=== PATIENT | male | born 1960 | race Caucasian/White ===

== ENCOUNTER 2017-12-23 13:48 | Inpatient (IN) | payer OTHER ==
--- OUTSIDE RECORDS SUMMARY | 2017-12-23 13:52 | XMS REPORT | Clinical Summary ---
:1960 Author Organization [facility] Address [address] [place] [address] Care Team Providers Name Role Phone Unavailable Primary Care Provider Unavailable Allergies Active Allergy Reactions Severity Noted Date Comments Acetaminophen Hives High 02/18/2009 Aspirin Rash, Nausea and Vomiting Low 02/18/2009 States vomiting when taken. Ibuprofen Hives 08/02/2010 Nitroglycerin Nausea and Vomiting Low 02/18/2009 States he "feels like passing out" when taking the patch or pill versions. Current Medications Prescription Sig. Disp. Refills Start Date End Date Status ferrous sulfate 325 Take 1 tablet 30 tablet 3 11/12/2014 Active mg (65 mg iron) by mouth daily tabletIndications: (with Suicidal ideation, breakfast). Chest pain, CAD (coronary artery disease), Seizure disorder, Mild mental retardation, Mood disorder, Personality disorder, Desensitization to allergens, Cocaine dependence, in remission, GERD (gastroesophageal reflux disease), HLD (hyperlipidemia), Stented coronary artery, Radiating chest pain, TBI (traumatic brain injury), Elevated d-dimer atorvastatin Take 1 tablet 90 tablet 1 02/03/2016 Active (LIPITOR) 20 mg by mouth at tabletIndications: bedtime Other chest pain nightly. clopidogrel (PLAVIX) Take 1 tablet 90 tablet 1 02/03/2016 Active 75 mg by mouth tabletIndications: daily. Coronary artery disease involving [place] coronary artery with other forms of angina pectoris polyethylene glycol Add lukewarm 4000 mL 0 11/25/2017 Active (GOLYTELY) drinking water [id number] -5.86 to the fill gram oral leonides (4 solutionIndications: liters) and Abnormal CT scan, shake. Drink sigmoid colon as directed by your doctor.. aspirin (ASPIRIN) 81 Chew and 02/27/2014 Discontinued mg chewable tablet swallow 1 8 tablet by mouth daily. traMADol (ULTRAM) 50 Take 1 tablet 21 tablet 0 06/14/2015 Discontinued mg tabletIndications: by mouth every 8 Acute right ankle 6 hours as pain, Closed needed for nondisplaced fracture Pain. of posterior process of right talus, initial encounter Active Problems Problem Noted Date Knee pain 12/18/[address] scan, sigmoid colon 11/25/2017 Fall 11/04/2016 Left wrist pain 01/26/2016 Right ankle pain 06/14/2015 Hypertension 06/05/2015 Syncope 12/06/2014 UTI (LOWER URINARY TRACT INFECTION) 11/30/2014 Hypotension 11/30/2014 Elevated d-dimer 09/16/2014 Mood disorder 04/05/2014 Mild mental retardation 08/23/2012 Radiating chest pain 04/20/2011 Stented coronary artery 04/19/2011 Overview: [facility] 07/12/2010 LAD 80% occlusion. Pt states he also got stented at [place], though reports not available Gastroesophageal reflux disease 03/26/2011 HLD (hyperlipidemia) 03/26/2011 Seizure disorder 02/24/2011 Coronary artery disease involving [place] coronary artery of [place] heart 12/24 Personality disorder 09/23/2010 Alcohol dependence, in remission 09/23/2010 Cocaine dependence, in remission 09/23/2010 Desensitized to Aspirin 06/201009/10/2010 Schizophrenia 07/17/2010 Chest pain 07/15/2010 Overview: . Multiple admissions for chest pain . Normal myocardial perfusion scan on 09/11/2010 . A stent can be seen radiologically in the [facility] TBI (traumatic brain injury) Chest pain, non-cardiac Non-cardiac chest pain Precordial pain Suicidal ideation Unspecified mood (affective) disorder Elevated troponin Fall down stairs HX: anticoagulation Loss of consciousness Suicidal behavior with attempted self-injury Arm laceration Intermittent explosive disorder in adult Familial hypercholesterolemia Right leg pain Right leg swelling Vomiting Hematemesis with nausea Encounters Date Type Specialty Care Team Description 12/19/2017 Ancillary Orders Emergency Allencherril, Chest pain, Medicine Justin Tom, unspecified type ResidentMD 12/18/2017 Emergency Emergency Linnea Santos Chest pain, unspecified type (Primary Dx); Adelaide Lozano MD Acute pain of right knee Dada David MD 11/24/2017 - Emergency Emergency Randolph, Jessica, Chest pain, unspecified type (Primary Dx); 11/25/2017 Medicine Vomiting, intractability of vomiting not specified, presence of nausea not specified, unspecified vomiting type; Clemente Mulligan MD Hematemesis with nausea; Abnormal CT scan, sigmoid colon 11/11/2017 Emergency Emergency Medicine 11/11/2017 Emergency Emergency Medicine 11/06/2017 - Emergency Emergency Eber Dupree MD Right leg pain (Primary Dx); 11/07/2017 Medicine Radha Mathis, Right leg swelling 05/11/2017 - Emergency Emergency Fall, initial 05/12/2017 Medicine encounter (Primary Dx) 05/08/2017 Emergency Emergency Medicine 01/17/2017 - Emergency Justus Aleman, Chest pain, unspecified type ( Primary Dx); 01/18/2017 Schizophrenia, unspecified type Hospitalist Ham Busch MD 12/29/2016 [facility] ( Primary Dx); Adelaide Ma MD Seizure disorder 12/23/2016 Emergency Emergency Alice Soares MD Seizure disorder (Primary Dx); Medicine Neck pain; 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 Immunizations Name Dates Previously Given Next Due Influenza Vaccine 06/23/2014 (Deferred: Patient Refused), 03/25/2013, 02/24/2011 PPV 23 Pneumococcal Polysaccaride 04/09/2009 Tdap Tetanus, diphtheria, acellular 02/14/2013, 03/22/2011, 11/15/2010 pertussis Vaccine Family History Medical History Relation Name Comments Heart Father Relation Name Status Comments Father Social History Tobacco Use Types Packs/Day Years Used Date Current Every Day Smoker Cigarettes 1.5 Smokeless Tobacco: Current User Alcohol Use Drinks/Week oz/Week Comments No Sex Assigned at Date Recorded Not on file Last Filed Vital Signs Vital Sign Reading Time Taken Blood Pressure 113/62 12/18/2017 12:55 PM CDT Pulse 60 12/18/2017 12:55 PM CDT Temperature 36.7 C (98 F) 12/18/2017 11:11 AM CDT Respiratory Rate 13 12/18/2017 12:55 PM CDT Oxygen Saturation 99% 12/18/2017 12:55 PM CDT Inhaled Oxygen Concentration - - Weight 99.1 kg (218 lb 6.4 oz) 11/11/2017 2:00 PM CDT Height 165.1 cm (5' 5") 01/18/2017 12:36 AM CDT Body Mass Index 36.34 11/11/2017 2:00 PM CDT Plan of Treatment Health Maintenance Due Date Last Done Comments Colorectal Cancer Scrn Annual 2008 (FIT/FOBT) Age 50 to 75 CORONARY ARTERY DISEASE AGE 18 02/02/2017 02/03/2016, 03/25/2013, AND UP 02/24/2011, Additional history exists IMM Influenza Seasonal Feb to 02/24/2018July (>/=19 yrs) Results MYOCARDIAL PERFUSION SPECT REST/STRES SINGLE (12/19/2017 1:45 PM) Component Value Ref Range MYOCARDIAL PERFUSION SPECT REST/STRES SINGLE Myocardial Perfusion Report KIRA FARNSWORTH Age:57Gender:M :1960 Exam Date: 12/18/2017 14:21 Exam Location:[facility] Ordering Phys: DADA DAVID Referring Phys: Reading Phys:Jose Francisco MD Fellow Phys: Jake Li MD Fellow Phys: Tristin Fagan MD Resident: Technologist:Courtney Miranda Reason For Exam: Indications:Chest pain, unspecified ICD-9 Codes:R07.9 Exam Type: Myocardial Perfusion Report Procedure CPT: 46500 Additional CPT: BP:/HR: Risk Factors: Previous Cardiac Procedures: Cardiac History: HTN, CVA Pertinent Meds: Meds past 24 hrs: Pretest Chest Pain: CARDIOLOGY STRESS TEST Pharmacologi Cardiology exercise stress test results pending under separate report. Please look in [facility] under the Procedures Tab in Chart Review. IMAGE PROTOCOLStress Only Radiopharmaceutical Dose (mCi)Duration (min) Img Date Img Time Rest: REST DATE Stress: [id number] STRESS DATE Tetrofosmin Administration Site:Left antecubital fossa SPECT RESULTS Technical Quality:Adequate Raw Data Analysis: Stress Perfusion Rest Perfusion Summed Stress Score:3 Summed Rest Score: 0 Summed Difference Score: 3 0 - Normal 2 - Abnormal Uptake 4 - Absent 1 - Mildly Reduced Uptake 3 - Severely Reduced Tracer Uptake X - Not Interpretable RV: Medium sized decreased uptake of mild severity in the inferior (RCA) segments Homogenous normal tracer uptake of the myocardium during rest and stress in all other segments FUNCTION (calculated via Gated SPECT) Resting LV EF:% EDV:119ml(70-100 ml) Post Stress LV EF: 61% TID: ESV:47 ml (30-50 ml) Technical Quality: LV Size & Function: Normal left ventricular size and ejection fraction. LV Regional Function: Normal left ventricular wall motion and thickening. Other Findings: Variable Not Implemented IMPRESSIONS 1. Myocardial perfusion study is inconclusive 2. There is a medium size mild severity region of decreased perfusion in inferior wall during stress. Patient declined rest images on same day and was discharged prior to obtaining rest images next day. Suspect defect is soft tissue attenuation, however cannot exclude scar or ischemia in absence of rest images. 3. Overall left ventricular function is normal with normal wall motion. 4. Normal gated SPECT left ventricular ejection fraction of 61%. 5. Normal left ventricular size. 6. No previous study for comparison. 7. Please see ECG report in Epic for details of tracing interpretation. [place] Control: Do not remove! 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 Interpretive Statements Indication: chest pain Findings: The patient was administered regadenoson 0.4Mg IV. Aminophylline was given if needed. The resting heart rate of 50 bpm sly to a maximal heart rate of 94 bpm. The resting blood pressure of 118/70 mmHg ,fell to a minimum of 94/64 mmHg. Conclusions: 1. ECG portion of nuclear stress test is non-diagnostic for ischemia 2. Testing terminated due to end of test. Non-limiting chest pain/pressure noted. 3. Baseline EKG:NSR without ST changes.Stress EKG: NSR without ST changes. 4. Noted arrhythmias: none 5. Please see results from nuclear stress test from the same date for perfusion data. Electronically Signed On 12-20-17 14:46:15 CDT by Jose Francisco M.D. Specimen Performing Laboratory SMS TROPONIN I (12/18/2017 8:46 AM)Only the most recent of4 resultswithin the time period is included. Component Value Ref Range Troponin I <0.03 <0.04 ng/mL Specimen Performing Laboratory Blood MISYS XRAY KNEE 3 VIEWS (TRAUMA - AP/LAT/OBL) (12/18/2017 6:36 AM)Only the most recent of2 resultswithin the time period is included. Specimen Performing Laboratory SMS Impressions IMPRESSION: No acute radiographic abnormality of the right knee A "PRELIMINARY" report was made available via Cubie at the time of dictation by the resident indicated below. If the report is described as "FINALIZED" it indicates the attending/staff radiologist below has reviewed the images and agrees with the resident's interpretation. Dictated By: Tamika Eckert MD, 12/18/2017 6:37 AM I have reviewed the study and agree with the findings in this report. Signed By: Kari Yu MD, 12/18/2017 6:50 AM Narrative EXAMINATION: XRAY KNEE - 4 VIEW(S) SIDE: Right INDICATION: pain, fall COMPARISON: Right knee radiographs 11/06/2017 FINDINGS: BONE: No acute fracture. Possible chronic healed fracture deformity of the proximal fibula. JOINTS: No malalignment. SOFT TISSUES: Normal. Procedure Note Interface, Rad/Mammog In - 12/18/2017 6:55 AM CDT EXAMINATION: XRAY KNEE - 4 VIEW(S) SIDE: Right INDICATION: pain, fall COMPARISON: Right knee radiographs 11/06/2017 FINDINGS: BONE: No acute fracture. Possible chronic healed fracture deformity of the proximal fibula. JOINTS: No malalignment. SOFT TISSUES: Normal. IMPRESSION IMPRESSION: No acute radiographic abnormality of the right knee A "PRELIMINARY" report was made available via Cubie at the time of dictation by the resident indicated below. If the report is described as "FINALIZED" it indicates the attending/staff radiologist below has reviewed the images and agrees with the resident's interpretation. Dictated By: Tamika Eckert MD, 12/18/2017 6:37 AM I have reviewed the study and agree with the findings in this report. Signed By: Kari Yu MD, 12/18/2017 6:50 AM 12 LEAD EKG (12/18/2017 5:58 AM)Only the most recent of8 resultswithin the time period is included. Component Value Ref Range 12 LEAD EKG FOR [facility] Test Date:2017-12-18 Pat Name: KIRA Jaquezpartment: : Gender: M Double End Tenoner Setter: :1960 Requested By: Order Number:Reading MD: Jose Francisco M.D. Measurements IntervalsAxis Rate: 61 P: 34 FL: 150QRS: 13 QRSD: 101T: 14 QT: 447 QTc:453 Interpretive Statements SINUS RHYTHM Electronically Signed On 12-18-17 06:29:52 CDT by Jose Francisco M.D. Specimen Performing Laboratory SMS XRAY CHEST 2 VIEWS (12/18/2017 3:42 AM)Only the most recent of3 resultswithin the time period is included. Specimen Performing Laboratory SMS Impressions IMPRESSION: No acute thoracic abnormality. A "PRELIMINARY" report was made available via Cubie at the time of dictation by the resident indicated below. If the report is described as "FINALIZED" it indicates the attending/staff radiologist below has reviewed the images and agrees with the resident's interpretation. Dictated By: Tamika Eckert MD, 12/18/2017 3:52 AM I have reviewed the study and agree with the findings in this report. Signed By: Krai Yu MD, 12/18/2017 4:08 AM Narrative EXAMINATION:XRAY CHEST 2 VIEWS, Frontal and lateral INDICATION: Chest pain COMPARISON:Chest x-ray 11/24/2017 FINDINGS: TUBES/LINES:Stable partially visualized IVC filter. LUNGS AND PLEURA:No consolidations or edema. No effusions or pneumothorax. HEART/MEDIASTINUM:Mildly enlarged cardiac silhouette. MUSCULOSKELETAL:No acute findings. UPPER ABDOMEN: No acute findings. Right upper quadrant surgical clips. SOFT TISSUES: No acute findings. Procedure Note Interface, Rad/Mammog In - 12/18/2017 4:13 AM CDT EXAMINATION: XRAY CHEST 2 VIEWS, Frontal and lateral INDICATION: Chest pain COMPARISON: Chest x-ray 11/24/2017 FINDINGS: TUBES/LINES: Stable partially visualized IVC filter. LUNGS AND PLEURA: No consolidations or edema. No effusions or pneumothorax. HEART/MEDIASTINUM: Mildly enlarged cardiac silhouette. MUSCULOSKELETAL: No acute findings. UPPER ABDOMEN: No acute findings. Right upper quadrant surgical clips. SOFT TISSUES: No acute findings. IMPRESSION IMPRESSION: No acute thoracic abnormality. A "PRELIMINARY" report was made available via Cubie at the time of dictation by the resident indicated below. If the report is described as "FINALIZED" it indicates the attending/staff radiologist below has reviewed the images and agrees with the resident's interpretation. Dictated By: Tamika Eckert MD, 12/18/2017 3:52 AM I have reviewed the study and agree with the findings in this report. Signed By: Kari Yu MD, 12/18/2017 4:08 AM VBG POC (12/18/2017 2:51 AM)Only the most recent of2 resultswithin the time period is included. Component Value Ref Range pH, Saul POC 7.57 (H) 7.33 - 7.43 pCO2, Saul POC 25.5 (L) 38.0 - 50.0 mm Hg pO2, Saul POC 147 (H) 50 - 75 mm Hg Base Excess, Saul POC 2 mmol/L HCO3, Saul POC 23.1 22.0 - 26.0 mmol/L % Sat, Saul POC 100 (H) 60 - 85 % Lactic Acid, Saul POC 1.08 0.4 - 2.0 mmol/L Sample Type Saul TCO2, SAUL POC 24 21 - 32 mmol/L Specimen Performing Laboratory MISYS BMP POC (12/18/2017 2:51 AM)Only the most recent of4 resultswithin the time period is included. Component Value Ref Range CO2 POC 25 21 - 32 mmol/L Chloride POC 106 98 - 107 mmol/L Potassium POC 4.0 3.50 - 5.10 mmol/L Sodium POC 139 136 - 145 mmol/L Glucose POC 119 (H) 74 - 106 mg/dL Urea Nitrogen POC 11 7 - 18 mg/dL Creatinine POC 0.6 0.6 - 1.3 mg/dL Calcium Ionized POC 1.01 (L) 1.15 - 1.29 mmol/L Hemoglobin POC 11.2 (L) 14.0 - 18.0 g/dL Hematocrit POC 33.0 (L) 40.0 - 54.0 % GFR, Estimated >60 mL/min/1.73 m2 GFR, Estim, Afr-Am >60 mL/min/1.73 m2 Specimen Performing Laboratory MISYS TROPONIN I POC (12/18/2017 2:48 AM)Only the most recent of4 resultswithin the time period is included. Component Value Ref Range Troponin POC 0.04 0.00 - 0.08 ng/mL Specimen Performing Laboratory MISYS CBC/DIFF (11/25/2017 4:38 AM)Only the most recent of5 resultswithin the time period is included. Component Value Ref Range WBC 6.8 4.5 - 12.0 K/uL RBC 3.97 (L) 4.60 - 6.20 M/uL Hemoglobin 10.0 (L) 14.0 - 18.0 g/dL Hematocrit 33.0 (L) 40.0 - 54.0 % MCV 83 82 - 92 fL MCH 25.2 (L) 27.0 - 31.0 pg MCHC 30.3 (L) 32.0 - 36.0 g/dL RDW 57.9 (H) 35.1 - 43.9 fL Platelet 258 150 - 400 K/uL Mean Platelet Volume 9.9 9.4 - 12.4 fL Percent NRBC 0.0 Absolute NRBC 0.00 Neutrophil 70.0 (H) 34.0 - 67.9 % Lymphocyte 13.0 (L) 21.8 - 50.0 % Monocyte 13.0 (H) 5.3 - 12.0 % Eosinophil 3.0 0.8 - 5.0 % Basophil None seen 0.2 - 1.2 % Neutrophil, Abs 4.77 1.78 - 5.36 K/uL Lymphocyte, Abs 0.89 (L) 1.32 - 3.57 K/uL Monocyte, Abs 0.89 (H) 0.30 - 0.82 K/uL Eosinophil, Abs 0.20 0.04 - 0.54 K/uL Basophil, Abs None seen 0.01 - 0.08 K/uL Atypical Lymph 1 % Ovalocyte 2+ Specimen Performing Laboratory Blood MISYS CKMB, REFLEX (11/24/2017 9:50 PM) Component Value Ref Range CK-MB 4.5 0.6 - 6.3 ng/mL CKMB Index 2.0 0 - 2.5 Specimen Performing Laboratory MISYS CK, TOTAL (11/24/2017 9:50 PM) Component Value Ref Range CK, Total 228 (H) 30 - 223 U/L Specimen Performing Laboratory Blood MISYS CT ABDOMEN AND PELVIS CONTRAST (11/24/2017 1:16 PM) Specimen Performing Laboratory SMS Impressions IMPRESSION: 1.Indeterminate focal wall thickening of the distal sigmoid colon. Recommend further evaluation with GI for colonoscopy. 2.3 mm nonobstructive stone in the right superior kidney. 3.Moderate stool burden within the rectosigmoid colon. Findings discussed with Dr. Dickson by Dr. Panchal at 3:29 PM via telephone on 11/24/2017. If the report is "FINALIZED" it indicates that the attending/staff radiologist has reviewed the images and agrees with the resident's interpretation. Dictated By: Chemo Panchal MD, 11/24/2017 3:30 PM I have reviewed the study and agree with the findings in this report. Signed By: Kari Boucher MD, 11/24/2017 5:29 PM Narrative EXAM: CT Abdomen and Pelvis WITH contrast INDICATION: abdominal pain, hematemesis COMPARISON: CT of the hip on 11/07/2017 TECHNIQUE: Abdomen and pelvis were scanned utilizing a multidetector helical scanner from the lung base to the pubic symphysis after administration of IV contrast. Coronal and sagittal reformations were obtained. Routine protocol was performed. Scan was performed when during portal venous phase. IV CONTRAST: 100 mL of Omnipaque 300 ORAL CONTRAST: None COMPLICATIONS: None RADIATION DOSE: Total DLP: 1074 mGy*cm Estimated effective dose: (DLP x 0.015 x size factor) mSv CTDIvol has been reviewed. It is below the limits set by the Radiation Protocol Committee (RPC). FINDINGS: LINES and TUBES: IVC filter at the level of L2. LOWER THORAX:Mild bibasilar atelectasis. HEPATOBILIARY:No focal hepatic lesions. No biliary ductal dilation. GALLBLADDER: There are cholecystectomy clips. SPLEEN: No splenomegaly. PANCREAS: There is fatty infiltration of the pancreas. ADRENALS: No adrenal nodules KIDNEYS/URETERS: Kidneys enhance symmetrically.No hydronephrosis. No cystic or solid mass lesions.3 mm nonobstructive stone in the right superior kidney. GI TRACT: Focal wall thickening of the distal sigmoid colon for about 2.2 cm in length and 8.4 cm above the annular verge, better seen on series 2, image 129 and series 5, image 67. Otherwise, no abnormal distention, wall thickening, or evidence of bowel obstruction.Moderate stool burden within the rectosigmoid colon.Appendix is normal. PELVIC ORGANS/BLADDER: Unremarkable. LYMPH NODES: No lymphadenopathy. VESSELS: Unremarkable. PERITONEUM / RETROPERITONEUM: No free air or fluid. BONES: Posterior disc protrusion at L5-S1 resulting in mild spinal canal stenosis. Facet arthrosis at L5-S1 resulting in bilateral recess narrowing. SOFT TISSUES: There is mild diffuse anasarca. Nonspecific calcified granuloma in the subcutaneous fat of the left lower gluteal region. Procedure Note Interface, Rad/Mammog In - 11/24/2017 5:34 PM CDT EXAM: CT Abdomen and Pelvis WITH contrast INDICATION: abdominal pain, hematemesis COMPARISON: CT of the hip on 11/07/2017 TECHNIQUE: Abdomen and pelvis were scanned utilizing a multidetector helical scanner from the lung base to the pubic symphysis after administration of IV contrast. Coronal and sagittal reformations were obtained. Routine protocol was performed. Scan was performed when during portal venous phase. IV CONTRAST: 100 mL of Omnipaque 300 ORAL CONTRAST: None COMPLICATIONS: None RADIATION DOSE: Total DLP: 1074 mGy*cm Estimated effective dose: (DLP x 0.015 x size factor) mSv CTDIvol has been reviewed. It is below the limits set by the Radiation Protocol Committee (RPC). FINDINGS: LINES and TUBES: IVC filter at the level of L2. LOWER THORAX: Mild bibasilar atelectasis. HEPATOBILIARY: No focal hepatic lesions. No biliary ductal dilation. GALLBLADDER: There are cholecystectomy clips. SPLEEN: No splenomegaly. PANCREAS: There is fatty infiltration of the pancreas. ADRENALS: No adrenal nodules KIDNEYS/URETERS: Kidneys enhance symmetrically. No hydronephrosis. No cystic or solid mass lesions. 3 mm nonobstructive stone in the right superior kidney. GI TRACT: Focal wall thickening of the distal sigmoid colon for about 2.2 cm in length and 8.4 cm above the annular verge, better seen on series 2, image 129 and series 5, image 67. Otherwise, no abnormal distention, wall thickening, or evidence of bowel obstruction. Moderate stool burden within the rectosigmoid colon. Appendix is normal. PELVIC ORGANS/BLADDER: Unremarkable. LYMPH NODES: No lymphadenopathy. VESSELS: Unremarkable. PERITONEUM / RETROPERITONEUM: No free air or fluid. BONES: Posterior disc protrusion at L5-S1 resulting in mild spinal canal stenosis. Facet arthrosis at L5-S1 resulting in bilateral recess narrowing. SOFT TISSUES: There is mild diffuse anasarca. Nonspecific calcified granuloma in the subcutaneous fat of the left lower gluteal region. IMPRESSION IMPRESSION: 1. Indeterminate focal wall thickening of the distal sigmoid colon. Recommend further evaluation with GI for colonoscopy. 2. 3 mm nonobstructive stone in the right superior kidney. 3. Moderate stool burden within the rectosigmoid colon. Findings discussed with Dr. Dickson by Dr. Panchal at 3:29 PM via telephone on 11/24/2017. If the report is "FINALIZED" it indicates that the attending/staff radiologist has reviewed the images and agrees with the resident's interpretation. Dictated By: Chemo Panchal MD, 11/24/2017 3:30 PM I have reviewed the study and agree with the findings in this report. Signed By: Kari Boucher MD, 11/24/2017 5:29 PM UA CHEMISTRIES (11/24/2017 1:00 PM) Component Value Ref Range Color Yellow Clarity Clear Spec [place] 1.035 1.001 - 1.035 pH 6.0 5 - 8 Protein Negative NEG Glucose Negative NEG Ketone Negative NEG Bilirubin Negative NEG Nitrate Negative NEG Urobilinogen <1.0 0.2 - 1.0 EU/dL Leukocyte Negative NEG Blood Negative NEG Specimen Performing Laboratory MISYS POCT BNP (BRAIN NATRIURETIC PEPTIDE) (11/24/2017 9:06 AM) Component Value Ref Range B Natr Pept POC <15 0 - 100 pg/mL Specimen Performing Laboratory MISYS LIVER PROFILE (11/24/2017 9:00 AM) Component Value Ref Range T Protein 7.1 6.0 - 8.3 g/dL Albumin 3.8 (L) 4.2 - 5.5 g/dL T Bilirubin 0.4 0.2 - 1.2 mg/dL Alk Phos 84 34 - 104 U/L AST 16 13 - 39 U/L ALT 14 7 - 52 U/L D Bilirubin 0.1 0.0 - 0.2 mg/dL Specimen Performing Laboratory MISYS LIPASE (11/24/2017 9:00 AM) Component Value Ref Range Lipase 14 11 - 82 U/L Specimen Performing Laboratory MISYS CT HIP W/O CONTRAST (11/07/2017 4:04 AM) Specimen Performing Laboratory SMS Narrative Type of Study: Right hip CT without contrast. Clinical Indication:Right leg edema Comparison:Right hip radiograph 11/06/2017 Technique:Helical axial CT images, in soft tissue and thin cut bone algorithms, of the right hip were obtained without contrast from L4 to mid femoral diaphysis.Coronal and Sagittal reformats were also obtained. Discussion: BONE: Bone remodeling of the mid femoral diaphysis secondary to an old fracture. JOINTS: Mild degenerative changes of the right SI joint. Moderate degenerative changes of bilateral L5-S1 facets. No hip joint effusion. SOFT TISSUES: Mild soft tissue edema of the right extremity. Findings: Bilateral fat-containing inguinal hernias. Injection granulomas in the right buttock. Impression: 1.No acute bone abnormalities. 2.Mild soft tissue edema of the right extremity. Dictated By: Jyotsna Overton MD, 11/07/2017 5:14 AM I have reviewed the study and agree with the findings in this report. Signed By: Kari Yu MD, 11/07/2017 6:08 AM Procedure Note Interface, Rad/Mammog In - 11/07/2017 6:13 AM CDT Type of Study: Right hip CT without contrast. Clinical Indication: Right leg edema Comparison: Right hip radiograph 11/06/2017 Technique: Helical axial CT images, in soft tissue and thin cut bone algorithms, of the right hip were obtained without contrast from L4 to mid femoral diaphysis. Coronal and Sagittal reformats were also obtained. Discussion: BONE: Bone remodeling of the mid femoral diaphysis secondary to an old fracture. JOINTS: Mild degenerative changes of the right SI joint. Moderate degenerative changes of bilateral L5-S1 facets. No hip joint effusion. SOFT TISSUES: Mild soft tissue edema of the right extremity. Findings: Bilateral fat-containing inguinal hernias. Injection granulomas in the right buttock. Impression: 1. No acute bone abnormalities. 2. Mild soft tissue edema of the right extremity. Dictated By: Jyotsna Overton MD, 11/07/2017 5:14 AM I have reviewed the study and agree with the findings in this report. Signed By: Kari Yu MD, 11/07/2017 6:08 AM CRP, HIGH SENS (11/06/2017 11:50 PM) Component Value Ref Range CRP, high sens 13.388 (H) <1.0 mg/dL Specimen Performing Laboratory MISYS BASIC METABOLIC PANEL (11/06/2017 11:50 PM)Only the most recent of3 resultswithin the time period is included. Component Value Ref Range CO2 26 21 - 31 mmol/L Chloride 102 98 - 107 mmol/L Potassium 3.8 3.5 - 5.1 mmol/L Sodium 139 136 - 145 mmol/L Glucose 92 70 - 110 mg/dL Urea Nitrogen 12 7 - 25 mg/dL Creatinine 0.70 0.7 - 1.3 mg/dL Anion Gap 11 Calcium 8.4 (L) 8.6 - 10.3 mg/dL GFR, Estimated >60 mL/min/1.73 m2 GFR, Estim, Afr-Am >60 mL/min/1.73 m2 Specimen Performing Laboratory Blood MISYS XRAY HIP UNILATERAL 2/3 VIEWS (11/06/2017 8:27 PM) Specimen Performing Laboratory SMS Impressions IMPRESSION: No acute radiographic abnormality. Dictated By: Jyotsna Overton MD, 11/06/2017 9:03 PM I have reviewed the study and agree with the findings in this report. Signed By: Kari Yu MD, 11/06/2017 10:36 PM Narrative EXAMINATION:XRAY HIP UNILATERAL 2/3 VIEWS SIDE: Right INDICATION: R leg pain COMPARISON:None FINDINGS: BONES: No acute fracture. JOINTS: Mild degenerative changes of the lower lumbar spine. SOFT TISSUES: Normal Procedure Note Interface, Rad/Mammog In - 11/06/2017 10:41 PM CDT EXAMINATION: XRAY HIP UNILATERAL 2/3 VIEWS SIDE: Right INDICATION: R leg pain COMPARISON: None FINDINGS: BONES: No acute fracture. JOINTS: Mild degenerative changes of the lower lumbar spine. SOFT TISSUES: Normal IMPRESSION IMPRESSION: No acute radiographic abnormality. Dictated By: Jyotsna Overton MD, 11/06/2017 9:03 PM I have reviewed the study and agree with the findings in this report. Signed By: Kari Yu MD, 11/06/2017 10:36 PM DUPLEX DOPPLER LOWER EXTREMITY VENOUS, UNILATERAL OR LIMITED (11/06/2017 7:49 PM) Specimen Performing Laboratory SMS Impressions IMPRESSION: No evidence of deep venous thrombosis above the right calf. Dictated By: Roland Jiang MD, 11/06/2017 8:07 PM I have reviewed the study and agree with the findings in this report. Signed By: Yannick Riley MD, 11/06/2017 8:37 PM Narrative EXAM: Right Lower Extremity Venous Duplex Ultrasound INDICATION: Swelling of right lower extremity COMPARISON:None TECHNIQUE: Renner scale, color Doppler and spectral waveform analysis of the right lower extremity deep venous system was performed. FINDINGS: Common Femoral: Fully compressible with normal spontaneous waveforms. Proximal Greater Saphenous: Fully compressible. Femoral: Fully compressible with normal spontaneous waveforms.Normal response to augmentation. Proximal Deep Femoral: Normal spontaneous waveforms. Popliteal: Fully compressible with normal spontaneous waveforms. Procedure Note Interface, Rad/Mammog In - 11/06/2017 8:42 PM CDT EXAM: Right Lower Extremity Venous Duplex Ultrasound INDICATION: Swelling of right lower extremity COMPARISON: None TECHNIQUE: Renner scale, color Doppler and spectral waveform analysis of the right lower extremity deep venous system was performed. FINDINGS: Common Femoral: Fully compressible with normal spontaneous waveforms. Proximal Greater Saphenous: Fully compressible. Femoral: Fully compressible with normal spontaneous waveforms. Normal response to augmentation. Proximal Deep Femoral: Normal spontaneous waveforms. Popliteal: Fully compressible with normal spontaneous waveforms. IMPRESSION IMPRESSION: No evidence of deep venous thrombosis above the right calf. Dictated By: Roland Jiang MD, 11/06/2017 8:07 PM I have reviewed the study and agree with the findings in this report. Signed By: Yannick Riley MD, 11/06/2017 8:37 PM TRANSTHORACIC ECHO (TTE) (01/18/2017 10:11 AM) Component Value Ref Range TRANSTHORACIC ECHO (TTE) Transthoracic Echo Report KIRA FARNSWORTH Age:56 Gender: M :1960 Exam Date: 01/18/2017 10:11 Exam Location: [facility] Echo Ordering Phys: HAM BUSCH Referring Phys: Reading Phys:Bruno Duffy Fellow Phys: Kiko Adams M.D. Fellow Phys: Drafter Civil (Cad): Slime Anderson Reason For Exam: Indications:Chest pain, Chest pain, unspecified ICD-9 Codes: R07.9 Exam Type: Transthoracic Echo Procedure CPT:71351 Addtional CPT: Ht (in): 65 BSA: 2.42HR: 66 Rhythm: Sinus rhythm Wt (lb): 266BP: 102/ 51 Technical Quality: Very technically difficult study History: MEASUREMENTS(Male / Female) Normal Values 2D ECHO LVOT Diameter 2.2 cm Aortic Root Diameter3.4 cm DOPPLER AV Peak Ceartvgy893 cm/s AV Peak Onffssai97 mmHg AV Mean Jzawygkm207 cm/s AV Mean Gradient7 mmHg AV Velocity Time Integral 31.2 cm LVOT Peak Ozrtblik699 cm/s LVOT Peak Klzpvosh33.1 mmHg LVOT Mean Zjgkcrvo004 cm/s LVOT Mean Gradient5 mmHg LVOT Velocity Time Integral 27.7 cm LVOT Stroke Uzcsiu250 cm AV Area Cont Eq vti 3.4 cm AV Area Cont Eq pk3.2 cm Mitral E Point Velocity 72.3 cm/s Mitral A Point Velocity 84.4 cm/s Mitral E to A Ratio 0.86 MV Deceleration Blount 260 cm/s MV Pressure Half Time 82 ms MV Area PHT 2.7 cm PV Peak Kqkgqauq16 cm/s PV Peak Gradient3.6 mmHg RVOT Peak Aipntuhm95.8 cm/s RVOT Peak Gradient3.2 mmHg LV E' Lateral Cjpopkgj24.6 cm/s Mitral E to LV E' Lateral Ratio 6.2 LV E' Septal Velocity 6.9 cm/s Mitral E to LV E' Septal Ratio10.6 FINDINGS Left Ventricle The left ventricle is grossly normal in size and systolic function. LVEF is 60 - 64%. No wall motion abnormalities in limited apical views. There is normal LV relaxation for age with normal filling pressures. Right Ventricle The right ventricle is normal in size and systolic function.TAPSE is measured at 2.6 cm. Right Atrium The right atrium is normal in size. Left Atrium The left atrium is normal in size.The left atrial volume index is 22 cc / m2 BSA. IAS Mitral Valve Structurally normal mitral valve without significant stenosis or prolapse. There is trace mitral regurgitation. Aortic Valve The aortic valve is structurally normal. There is no aortic stenosis. Cusps are mildly sclerotic but open well. There is trace aortic regurgitation. Tricuspid Valve Structurally normal tricuspid valve without significant stenosis. There is trace tricuspid regurgitation. Pulmonic Valve Pulmonic valve not well visualized. There is trace pulmonic regurgitation. Pericardium No pericardial effusion. Aorta Normal aortic root for body surface area. IVC RA pressure is 0-5 mmHg. CONCLUSIONS Left ventricle is grossly normal in size and systolic function. LVEF is estimated at 60-64%. No wall motion abnormalities in limited apical views. Normal diastolic parameters. Right ventricle is normal in size and systolic function. Both atria are normal in size. No significant valvular abnormalities. Insufficient TR jet to estimate pulmonary artery systolic pressure. No pericardial effusion. When compared to a prior study from 02/26/14, there are no new findings. Bruno Duffy MD (Electronically Signed) Final Date:18 January 2017 13:22 2D ECHO LVOT Diameter 2.2 cm Aortic Root Diameter3.4 cm DOPPLER AV Peak Ezprpszy889 cm/s AV Peak Dsgpcgpv56 mmHg AV Mean Zvgwepfw200 cm/s AV Mean Gradient7 mmHg AV Velocity Time Integral 31.2 cm LVOT Peak Oarabixt043 cm/s LVOT Peak Feocumdw67.1 mmHg LVOT Mean Kdwodwlx024 cm/s LVOT Mean Gradient5 mmHg LVOT Velocity Time Integral 27.7 cm LVOT Stroke Xfvpys435 cm AV Area Cont Eq vti 3.4 cm AV Area Cont Eq pk3.2 cm Mitral E Point Velocity 72.3 cm/s Mitral A Point Velocity 84.4 cm/s Mitral E to A Ratio 0.86 MV Deceleration Blount 260 cm/s MV Pressure Half Time 82 ms MV Area PHT 2.7 cm PV Peak Wimfaueb00 cm/s PV Peak Gradient3.6 mmHg RVOT Peak Tczpvolh54.8 cm/s RVOT Peak Gradient3.2 mmHg LV E' Lateral Fmlkcfig82.6 cm/s Mitral E to LV E' Lateral Ratio 6.2 LV E' Septal Velocity 6.9 cm/s Mitral E to LV E' Septal Ratio10.6 Specimen Performing Laboratory SMS WOUND STAIN / CULTURE (01/18/2017 1:53 AM) Component Value Ref Range Spec Description Wound Order Comments None Gram Stain No organisms seen Culture No growth 3 days Report Status Final 01/21/2017 Specimen Performing Laboratory Wound - SWAB MISYS PT/INR/PTT (01/18/2017 1:00 AM) Component Value Ref Range PT 15.0 11.8 - 15.0 Seconds INR 1.2 SUGGESTED THERAPEUTIC RANGES: INR 2.0-3.0 for MODERATE INTENSITY ANTICOAGULATION INR 2.5-3.5 for HIGH INTENSITY ANTICOAGULATION PTT 26.9 23.6 - 36.4 Seconds Specimen Performing Laboratory Blood MISYS XRAY CHEST 1 VIEW (01/17/2017 7:00 PM) Specimen Performing Laboratory SMS Impressions IMPRESSION: 1. No acute cardiopulmonary process identified. Interpreted by Ana Cristina Guy MD. Signed By: Ana Cristina Guy MD, 01/17/2017 7:29 PM Narrative EXAM: XR CHEST1 VIEW DATE: 01/17/2017. INDICATION: chest pain. COMPARISON: 12/20/2016. TECHNIQUE:Single portable radiograph provided for interpretation. FINDINGS: The lungs are clear without consolidation. Costophrenic sulci are sharp without effusions. Cardiomediastinal silhouette is stable. No worrisome osseous lesion. Procedure Note Interface, Rad/Mammog In - 01/17/2017 7:34 PM CDT EXAM: XR CHEST 1 VIEW DATE: 01/17/2017. INDICATION: chest pain. COMPARISON: 12/20/2016. TECHNIQUE: Single portable radiograph provided for interpretation. FINDINGS: The lungs are clear without consolidation. Costophrenic sulci are sharp without effusions. Cardiomediastinal silhouette is stable. No worrisome osseous lesion. IMPRESSION IMPRESSION: 1. No acute cardiopulmonary process identified. Interpreted by Ana Cristina Guy MD. Signed By: Ana Cristina Guy MD, 01/17/2017 7:[address] C-SPINE W/O CONTRAST (12/23/2016 5:02 PM) Specimen Performing Laboratory SMS Impressions IMPRESSION: Head CT: 1.No intracranial abnormalities. 2.No changes from the previous head CT of 12/20/2016. Cervical Spine CT: 1.No cervical spine fracture or subluxation. 2.Degenerative changes as described. 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 4.No changes from the previous cervical spine CT of 12/20/2016. Cannot exclude ligament, spinal cord and/or vascular abnormalities on this exam. If the report is "FINALIZED" it indicates that the attending/staff radiologist has reviewed the images and agrees with the resident's interpretation. Dictated By: Rickie Gilliam MD, 12/23/2016 5:09 PM I have reviewed the study and agree with the findings in this report. Signed By: Tristin Morrison MD, 12/23/2016 5:45 PM Narrative Exam: Head and Cervical Spine CTs without contrast History: seizure and fall Comparison studies: Head and cervical spine CT on 12/20/2016. Technique: Axial scans obtained through the head and cervical spine. Coronal and sagittal reconstructions obtained from the axial data. IV Contrast: None Complications: None Radiation Dose: Total DLP: 1692 mGy*cm FINDINGS: Head CT: See impression. Cervical spine CT: Fractures: None. Alignment: Normal lordosis. No subluxations. Soft tissues: No abnormalities. Degenerative changes: Disc osteophyte complex at C6-C7 does not result in gross significant canal stenosis (evaluation of the canal at this level is limited by attenuation artifact due to body habitus and patient's overlying shoulders). Moderate left foraminal stenosis at C3-C4 and moderate left and mild right frontal stenosis at C6-C7 due to uncovertebral and facet arthrosis. Incidental findings: Incomplete osseous fusion of the anterior posterior C1 arch is. Procedure Note Interface, Rad/Mammog In - 12/23/2016 5:50 PM CDT Exam: Head and Cervical Spine CTs without contrast History: seizure and fall Comparison studies: Head and cervical spine CT on 12/20/2016. Technique: Axial scans obtained through the head and cervical spine. Coronal and sagittal reconstructions obtained from the axial data. IV Contrast: None Complications: None Radiation Dose: Total DLP: 1692 mGy*cm FINDINGS: Head CT: See impression. Cervical spine CT: Fractures: None. Alignment: Normal lordosis. No subluxations. Soft tissues: No abnormalities. Degenerative changes: Disc osteophyte complex at C6-C7 does not result in gross significant canal stenosis (evaluation of the canal at this level is limited by attenuation artifact due to body habitus and patient's overlying shoulders). Moderate left foraminal stenosis at C3-C4 and moderate left and mild right frontal stenosis at C6-C7 due to uncovertebral and facet arthrosis. Incidental findings: Incomplete osseous fusion of the anterior posterior C1 arch is. IMPRESSION: Head CT: 1. No intracranial abnormalities. 2. No changes from the previous head CT of 12/20/2016. Cervical Spine CT: 1. No cervical spine fracture or subluxation. 2. Degenerative changes as described. 3. 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 4. No changes from the previous cervical spine CT of 12/20/2016. Cannot exclude ligament, spinal cord and/or vascular abnormalities on this exam. If the report is "FINALIZED" it indicates that the attending/staff radiologist has reviewed the images and agrees with the resident's interpretation. Dictated By: Rickie Gilliam MD, 12/23/2016 5:09 PM I have reviewed the study and agree with the findings in this report. Signed By: Tristin Morrison MD, 12/23/2016 5:[address] HEAD W/O CONTRAST (12/23/2016 5:02 PM) Specimen Performing Laboratory SMS Impressions IMPRESSION: Head CT: 1.No intracranial abnormalities. 2.No changes from the previous head CT of 12/20/2016. Cervical Spine CT: 1.No cervical spine fracture or subluxation. 2.Degenerative changes as described. 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 4.No changes from the previous cervical spine CT of 12/20/2016. Cannot exclude ligament, spinal cord and/or vascular abnormalities on this exam. If the report is "FINALIZED" it indicates that the attending/staff radiologist has reviewed the images and agrees with the resident's interpretation. Dictated By: Rickie Gilliam MD, 12/23/2016 5:09 PM I have reviewed the study and agree with the findings in this report. Signed By: Tristin Morrison MD, 12/23/2016 5:45 PM Narrative Exam: Head and Cervical Spine CTs without contrast History: seizure and fall Comparison studies: Head and cervical spine CT on 12/20/2016. Technique: Axial scans obtained through the head and cervical spine. Coronal and sagittal reconstructions obtained from the axial data. IV Contrast: None Complications: None Radiation Dose: Total DLP: 1692 mGy*cm FINDINGS: Head CT: See impression. Cervical spine CT: Fractures: None. Alignment: Normal lordosis. No subluxations. Soft tissues: No abnormalities. Degenerative changes: Disc osteophyte complex at C6-C7 does not result in gross significant canal stenosis (evaluation of the canal at this level is limited by attenuation artifact due to body habitus and patient's overlying shoulders). Moderate left foraminal stenosis at C3-C4 and moderate left and mild right frontal stenosis at C6-C7 due to uncovertebral and facet arthrosis. Incidental findings: Incomplete osseous fusion of the anterior posterior C1 arch is. Procedure Note Interface, Rad/Mammog In - 12/23/2016 5:50 PM CDT Exam: Head and Cervical Spine CTs without contrast History: seizure and fall Comparison studies: Head and cervical spine CT on 12/20/2016. Technique: Axial scans obtained through the head and cervical spine. Coronal and sagittal reconstructions obtained from the axial data. IV Contrast: None Complications: None Radiation Dose: Total DLP: 1692 mGy*cm FINDINGS: Head CT: See impression. Cervical spine CT: Fractures: None. Alignment: Normal lordosis. No subluxations. Soft tissues: No abnormalities. Degenerative changes: Disc osteophyte complex at C6-C7 does not result in gross significant canal stenosis (evaluation of the canal at this level is limited by attenuation artifact due to body habitus and patient's overlying shoulders). Moderate left foraminal stenosis at C3-C4 and moderate left and mild right frontal stenosis at C6-C7 due to uncovertebral and facet arthrosis. Incidental findings: Incomplete osseous fusion of the anterior posterior C1 arch is. IMPRESSION: Head CT: 1. No intracranial abnormalities. 2. No changes from the previous head CT of 12/20/2016. Cervical Spine CT: 1. No cervical spine fracture or subluxation. 2. Degenerative changes as described. 3. 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 4. No changes from the previous cervical spine CT of 12/20/2016. Cannot exclude ligament, spinal cord and/or vascular abnormalities on this exam. If the report is "FINALIZED" it indicates that the attending/staff radiologist has reviewed the images and agrees with the resident's interpretation. Dictated By: Rickie Gilliam MD, 12/23/2016 5:09 PM I have reviewed the study and agree with the findings in this report. Signed By: Tristin Morrison MD, 12/23/2016 5:45 PM PHENYTOIN (12/23/2016 4:40 PM) Component Value Ref Range Phenytoin 0.5 (L) 10 - 20 ug/mL Specimen Performing Laboratory Blood MISYS after 12/22/2016
--- OUTSIDE RECORDS SUMMARY | 2017-12-23 13:53 | XMS REPORT | Clinical Summary ---
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 procedure are in the results section. ESTIMATED GFR STAT 05/15/2017 8:35 Results for this PM [employer] procedure are in the results section. B NATRIURETIC PEPTIDE STAT 05/15/2017 8:35 Results for this PM [employer] procedure are in the results section. TROPONIN STAT 05/15/2017 8:35 Results for this PM [employer] procedure are in the results section. CREATINE KINASE, TOTAL STAT 05/15/2017 8:35 Results for this (CPK) PM [employer] procedure are in the results section. COMPREHENSIVE METABOLIC STAT 05/15/2017 8:35 Results for this PANEL PM [facility] procedure are in the results section. PROTHROMBIN TIME WITH STAT 05/15/2017 8:35 Results for this INR PM [facility] procedure are in the results section. HC COMPLETE BLD COUNT STAT 05/15/2017 8:35 Results for this W/AUTO DIFF PM [employer] procedure are in the results section. XR CHEST 1 VW PORTABLE STAT 05/15/2017 8:18 Results for this PM [employer] procedure are in the results section. ECG 12-LEAD STAT 05/15/2017 6:46 Results for this PM [employer] procedure are in the results section. ECG ED PRELIMINARY Routine 05/15/2017 11:47 Results for this INTERPRETATION AM [employer] procedure are in the results section. ECG 12-LEAD STAT 05/12/2017 6:55 Results for this PM [employer] procedure are in the results section. URINALYSIS SCREEN AND STAT 05/12/2017 6:30 Results for this MICROSCOPY, WITH REFLEX PM [facility] procedure are in TO CULTURE the results section. ESTIMATED GFR STAT 05/12/2017 6:30 Results for this PM [employer] procedure are in the results section. SALICYLATE LEVEL STAT 05/12/2017 6:30 Results for this PM [employer] procedure are in the results section. URINE DRUGS OF ABUSE STAT 05/12/2017 6:30 Results for this SCREEN PM [employer] procedure are in the results section. ACETAMINOPHEN LEVEL STAT 05/12/2017 6:30 Results for this PM [employer] procedure are in the results section. ALCOHOL LEVEL, BLOOD STAT 05/12/2017 6:30 Results for this PM [employer] procedure are in the results section. HC COMPLETE BLD COUNT STAT 05/12/2017 6:30 Results for this W/AUTO DIFF PM [employer] procedure are in the results section. THYROID STIMULATING STAT 05/12/2017 6:30 Results for this HORMONE PM [employer] procedure are in the results section. T4, FREE STAT 05/12/2017 6:30 Results for this PM [employer] procedure are in the results section. COMPREHENSIVE METABOLIC STAT 05/12/2017 6:30 Results for this PANEL PM [employer] procedure are in the results section. URINE CULTURE STAT 05/12/2017 6:30 Results for this PM [employer] procedure are in the results section. CT ANGIOGRAM PE CHEST STAT 05/09/2017 3:21 Results for this AM [employer] procedure are in the results section. URINE DRUGS OF ABUSE STAT 05/09/2017 1:38 Results for this SCREEN AM [employer] procedure are in the results section. URINALYSIS SCREEN AND STAT 05/09/2017 1:38 Results for this MICROSCOPY, WITH REFLEX AM [employer] procedure are in TO CULTURE the results section. URINE CULTURE STAT 05/09/2017 1:38 Results for this AM [employer] procedure are in the results section. ESTIMATED GFR STAT 05/09/2017 12:58 Results for this AM [employer] procedure are in the results section. B NATRIURETIC PEPTIDE STAT 05/09/2017 12:58 Results for this AM [employer] procedure are in the results section. TROPONIN Timed 05/09/2017 12:58 Results for this AM [employer] procedure are in the results section. TROPONIN STAT 05/09/2017 12:58 Results for this AM [employer] procedure are in the results section. CREATINE KINASE, TOTAL STAT 05/09/2017 12:58 Results for this (CPK) AM [facility] procedure are in the results section. COMPREHENSIVE METABOLIC STAT 05/09/2017 12:58 Results for this PANEL AM [employer] procedure are in the results section. PROTHROMBIN TIME WITH STAT 05/09/2017 12:58 Results for this INR AM [employer] procedure are in the results section. HC COMPLETE BLD COUNT STAT 05/09/2017 12:58 Results for this W/AUTO DIFF AM [employer] procedure are in the results section. ECG 12-LEAD STAT 05/08/2017 9:35 Results for this PM [facility] procedure are in the results section. CT ANGIOGRAM PE CHEST STAT 05/04/2017 2:38 Results for this PM [employer] procedure are in the results section. TROPONIN Timed 05/04/2017 11:49 Results for this AM [employer] procedure are in the results section. D-DIMER STAT 05/04/2017 9:25 Results for this AM [employer] procedure are in the results section. ECG 12-LEAD Routine 05/04/2017 9:17 Results for this AM [employer] procedure are in the results section. ECG ED PRELIMINARY Routine 05/04/2017 6:00 Results for this INTERPRETATION AM [employer] procedure are in the results section. ESTIMATED GFR STAT 05/04/2017 3:50 Results for this AM [employer] procedure are in the results section. B NATRIURETIC PEPTIDE STAT 05/04/2017 3:50 Results for this AM [employer] procedure are in the results section. LIPASE LEVEL STAT 05/04/2017 3:50 Results for this AM [employer] procedure are in the results section. TROPONIN STAT 05/04/2017 3:50 Results for this AM [employer] procedure are in the results section. CREATINE KINASE, TOTAL STAT 05/04/2017 3:50 Results for this (CPK) AM [employer] procedure are in the results section. COMPREHENSIVE METABOLIC STAT 05/04/2017 3:50 Results for this PANEL AM [employer] procedure are in the results section. PARTIAL THROMBOPLASTIN STAT 05/04/2017 3:50 Results for this TIME (PTT) AM [facility] procedure are in the results section. PROTHROMBIN TIME WITH STAT 05/04/2017 3:50 Results for this INR AM [employer] procedure are in the results section. HC COMPLETE BLD COUNT STAT 05/04/2017 3:50 Results for this W/AUTO DIFF AM [employer] procedure are in the results section. XR CHEST 2 VW STAT 05/04/2017 3:22 Results for this AM [employer] procedure are in the results section. ECG 12-LEAD STAT 05/04/2017 3:12 Results for this AM [employer] procedure are in the results section. ECG ED PRELIMINARY Routine 04/30/2017 1:52 Results for this INTERPRETATION AM [employer] procedure are in the results section. ESTIMATED GFR Timed 04/29/2017 7:45 Results for this PM [employer] procedure are in the results section. B NATRIURETIC PEPTIDE Timed 04/29/2017 7:45 Results for this PM [employer] procedure are in the results section. TROPONIN Timed 04/29/2017 7:45 Results for this PM [employer] procedure are in the results section. COMPREHENSIVE METABOLIC Timed 04/29/2017 7:45 Results for this PANEL PM [employer] procedure are in the results section. PARTIAL THROMBOPLASTIN Timed 04/29/2017 7:45 Results for this TIME (PTT) PM [facility] procedure are in the results section. PROTHROMBIN TIME WITH Timed 04/29/2017 7:45 Results for this INR PM [employer] procedure are in the results section. HC COMPLETE BLD COUNT Timed 04/29/2017 7:45 Results for this W/AUTO DIFF PM [employer] procedure are in the results section. XR CHEST 1 VW PORTABLE STAT 04/29/2017 7:41 Results for this PM [employer] procedure are in the results section. ECG 12-LEAD STAT 04/29/2017 6:39 Results for this PM [employer] procedure are in the results section. ECG ED PRELIMINARY Routine 04/18/2017 1:31 Results for this INTERPRETATION PM [employer] procedure are in the results section. ESTIMATED GFR STAT 04/18/2017 1:00 Results for this PM [employer] procedure are in the results section. URINALYSIS SCREEN AND STAT 04/18/2017 1:00 Results for this MICROSCOPY, WITH REFLEX PM [employer] procedure are in TO CULTURE the results section. URINE DRUGS OF ABUSE STAT 04/18/2017 1:00 Results for this SCREEN PM [employer] procedure are in the results section. B NATRIURETIC PEPTIDE STAT 04/18/2017 1:00 Results for this PM [employer] procedure are in the results section. TROPONIN STAT 04/18/2017 1:00 Results for this PM [employer] procedure are in the results section. CREATINE KINASE, TOTAL STAT 04/18/2017 1:00 Results for this (CPK) PM [employer] procedure are in the results section. COMPREHENSIVE METABOLIC STAT 04/18/2017 1:00 Results for this PANEL PM [employer] procedure are in the results section. PROTHROMBIN TIME WITH STAT 04/18/2017 1:00 Results for this INR PM [employer] procedure are in the results section. HC COMPLETE BLD COUNT STAT 04/18/2017 1:00 Results for this W/AUTO DIFF PM [employer] procedure are in the results section. URINE CULTURE STAT 04/18/2017 1:00 Results for this PM [employer] procedure are in the results section. XR CHEST 1 VW PORTABLE STAT 04/18/2017 12:59 Results for this PM [employer] procedure are in the results section. ECG 12-LEAD STAT 04/18/2017 12:15 Results for this PM [employer] procedure are in the results section. ECG ED PRELIMINARY Routine 03/31/2017 12:52 Results for this INTERPRETATION AM CDT procedure are in the results section. ECG 12-LEAD STAT 03/31/2017 12:01 Results for this AM CDT procedure are in the results section. ECG ED PRELIMINARY Routine 03/30/2017 9:48 Results for this INTERPRETATION AM CDT procedure are in the results section. INSERT PERIPHERAL IV Routine 03/29/2017 11:00 Results for this PM CDT procedure are in the results section. ECG ED PRELIMINARY Routine 03/29/2017 11:00 Results for this INTERPRETATION PM CDT procedure are in the results section. ESTIMATED GFR STAT 03/29/2017 9:40 Results for this PM CDT procedure are in the results section. TROPONIN STAT 03/29/2017 9:40 Results for this PM CDT procedure are in the results section. CREATINE KINASE, TOTAL STAT 03/29/2017 9:40 Results for this (CPK) PM CDT procedure are in the results section. COMPREHENSIVE METABOLIC STAT 03/29/2017 9:40 Results for this PANEL PM CDT procedure are in the results section. PARTIAL THROMBOPLASTIN STAT 03/29/2017 9:40 Results for this TIME (PTT) PM CDT procedure are in the results section. PROTHROMBIN TIME WITH STAT 03/29/2017 9:40 Results for this INR PM CDT procedure are in the results section. HC COMPLETE BLD COUNT STAT 03/29/2017 9:40 Results for this W/AUTO DIFF PM CDT procedure are in the results section. XR CHEST 1 VW PORTABLE STAT 03/29/2017 8:49 Results for this PM CDT procedure are in the results section. ECG 12-LEAD STAT 03/29/2017 7:43 Results for this PM CDT procedure are in the results section. ECG ED PRELIMINARY Routine 03/26/2017 2:30 Results for this INTERPRETATION PM CDT procedure are in the results section. TROPONIN STAT 03/25/2017 3:50 Results for this PM CDT procedure are in the results section. CREATINE KINASE, TOTAL STAT 03/25/2017 3:50 Results for this (CPK) PM CDT procedure are in the results section. PARTIAL THROMBOPLASTIN STAT 03/25/2017 3:50 Results for this TIME (PTT) PM CDT procedure are in the results section. PROTHROMBIN TIME WITH STAT 03/25/2017 3:50 Results for this INR PM CDT procedure are in the results section. HC COMPLETE BLD COUNT STAT 03/25/2017 3:50 Results for this W/AUTO DIFF PM CDT procedure are in the results section. URINALYSIS SCREEN AND STAT 03/25/2017 3:20 Results for this MICROSCOPY, WITH REFLEX PM CDT procedure are in TO CULTURE the results section. URINE CULTURE STAT 03/25/2017 3:20 Results for this PM CDT procedure are in the results section. OCCULT BLOOD, STOOL Routine 03/25/2017 2:46 Results for this PM CDT procedure are in the results section. ECG 12-LEAD STAT 03/25/2017 2:06 Results for this PM CDT procedure are in the results section. ECG ED PRELIMINARY Routine 03/17/2017 5:19 Results for this INTERPRETATION PM CDT procedure are in the results section. URINALYSIS SCREEN AND Routine 03/17/2017 4:40 Results for this MICROSCOPY, WITH REFLEX PM CDT procedure are in TO CULTURE the results section. URINE CULTURE Routine 03/17/2017 4:35 Results for this PM CDT procedure are in the results section. XR CHEST 1 VW PORTABLE STAT 03/17/2017 3:17 Results for this PM CDT procedure are in the results section. TROPONIN STAT 03/17/2017 3:00 Results for this PM CDT procedure are in the results section. B NATRIURETIC PEPTIDE STAT 03/17/2017 3:00 Results for this PM CDT procedure are in the results section. ESTIMATED GFR STAT 03/17/2017 3:00 Results for this PM CDT procedure are in the results section. TYPE AND SCREEN Routine 03/17/2017 3:00 Results for this PM CDT procedure are in the results section. LIPASE LEVEL STAT 03/17/2017 3:00 Results for this PM CDT procedure are in the results section. AMYLASE LEVEL STAT 03/17/2017 3:00 Results for this PM CDT procedure are in the results section. COMPREHENSIVE METABOLIC STAT 03/17/2017 3:00 Results for this PANEL PM CDT procedure are in the results section. PROTHROMBIN TIME WITH STAT 03/17/2017 3:00 Results for this INR PM CDT procedure are in the results section. HC COMPLETE BLD COUNT STAT 03/17/2017 3:00 Results for this W/AUTO DIFF PM CDT procedure are in the results section. ECG 12-LEAD STAT 03/17/2017 2:31 Results for this PM CDT procedure are in the results section. ECG ED PRELIMINARY Routine 02/25/2017 3:21 Results for this INTERPRETATION PM CDT procedure are in the results section. ECG 12-LEAD Routine 02/24/2017 6:09 Results for this AM CDT procedure are in the results section. TROPONIN Timed 02/24/2017 6:05 Results for this AM CDT procedure are in the results section. XR CHEST 1 VW PORTABLE STAT 02/24/2017 1:52 Results for this AM CDT procedure are in the results section. ESTIMATED GFR STAT 02/24/2017 1:10 Results for this AM CDT procedure are in the results section. B NATRIURETIC PEPTIDE STAT 02/24/2017 1:10 Results for this AM CDT procedure are in the results section. LIPASE LEVEL STAT 02/24/2017 1:10 Results for this AM CDT procedure are in the results section. TROPONIN STAT 02/24/2017 1:10 Results for this AM CDT procedure are in the results section. CREATINE KINASE, TOTAL STAT 02/24/2017 1:10 Results for this (CPK) AM CDT procedure are in the results section. COMPREHENSIVE METABOLIC STAT 02/24/2017 1:10 Results for this PANEL AM CDT procedure are in the results section. PARTIAL THROMBOPLASTIN STAT 02/24/2017 1:10 Results for this TIME (PTT) AM CDT procedure are in the results section. PROTHROMBIN TIME WITH STAT 02/24/2017 1:10 Results for this INR AM CDT procedure are in the results section. HC COMPLETE BLD COUNT STAT 02/24/2017 1:10 Results for this W/AUTO DIFF AM CDT procedure are in the results section. ECG 12-LEAD STAT 02/24/2017 12:59 Results for this AM CDT procedure are in the results section. ECG 12-LEAD Routine 02/18/2017 12:00 AM CDT ECG ED PRELIMINARY Routine 02/13/2017 3:11 Results for this INTERPRETATION PM CDT procedure are in the results section. ECG ED PRELIMINARY Routine 02/13/2017 3:11 Results for this INTERPRETATION PM CDT procedure are in the results section. TROPONIN Routine 02/13/2017 2:20 Results for this PM CDT procedure are in the results section. ECG 12-LEAD STAT 02/13/2017 2:17 Results for this PM CDT procedure are in the results section. CT ANGIOGRAM PE CHEST STAT 02/13/2017 2:12 Results for this PM CDT procedure are in the results section. XR CHEST 1 VW PORTABLE STAT 02/13/2017 12:44 Results for this PM CDT procedure are in the results section. PHENYTOIN LEVEL Routine 02/13/2017 12:35 Results for this PM CDT procedure are in the results section. ESTIMATED GFR STAT 02/13/2017 12:35 Results for this PM CDT procedure are in the results section. B NATRIURETIC PEPTIDE STAT 02/13/2017 12:35 Results for this PM CDT procedure are in the results section. TROPONIN STAT 02/13/2017 12:35 Results for this PM CDT procedure are in the results section. CREATINE KINASE, TOTAL STAT 02/13/2017 12:35 Results for this (CPK) PM CDT procedure are in the results section. COMPREHENSIVE METABOLIC STAT 02/13/2017 12:35 Results for this PANEL PM CDT procedure are in the results section. PROTHROMBIN TIME WITH STAT 02/13/2017 12:35 Results for this INR PM CDT procedure are in the results section. HC COMPLETE BLD COUNT STAT 02/13/2017 12:35 Results for this W/AUTO DIFF PM CDT procedure are in the results section. ECG 12-LEAD STAT 02/13/2017 12:12 Results for this PM CDT procedure are in the results section. ECG ED PRELIMINARY Routine 01/22/2017 11:28 Results for this INTERPRETATION AM CDT procedure are in the results section. ECG 12-LEAD Routine 01/22/2017 9:31 Results for this AM CDT procedure are in the results section. ECG ED PRELIMINARY Routine 01/10/2017 2:41 Results for this INTERPRETATION PM CDT procedure are in the results section. XR CHEST 1 VW PORTABLE STAT 01/10/2017 1:50 Results for this PM CDT procedure are in the results section. XR HAND 3+ VW RIGHT STAT 01/10/2017 1:50 Results for this PM CDT procedure are in the results section. ECG 12-LEAD STAT 01/10/2017 1:23 Results for this PM CDT procedure are in the results section. ECG ED PRELIMINARY Routine 12/29/2016 7:03 Results for this INTERPRETATION PM CDT procedure are in the results section. ECG ED PRELIMINARY Routine 12/29/2016 5:55 Results for this INTERPRETATION PM CDT procedure are in the results section. ESTIMATED GFR STAT 12/29/2016 5:40 Results for this PM CDT procedure are in the results section. TROPONIN STAT 12/29/2016 5:40 Results for this PM CDT procedure are in the results section. COMPREHENSIVE METABOLIC STAT 12/29/2016 5:40 Results for this PANEL PM CDT procedure are in the results section. HC COMPLETE BLD COUNT STAT 12/29/2016 5:40 Results for this W/AUTO DIFF PM CDT procedure are in the results section. XR CHEST 1 VW PORTABLE STAT 12/29/2016 5:18 Results for this PM CDT procedure are in the results section. ECG 12-LEAD STAT 12/29/2016 4:44 Results for this PM CDT procedure are in the results section. ESTIMATED GFR STAT 12/29/2016 11:08 Results for this AM CDT procedure are in the results section. B NATRIURETIC PEPTIDE STAT 12/29/2016 11:08 Results for this AM CDT procedure are in the results section. TROPONIN STAT 12/29/2016 11:08 Results for this AM CDT procedure are in the results section. CREATINE KINASE, TOTAL STAT 12/29/2016 11:08 Results for this (CPK) AM CDT procedure are in the results section. COMPREHENSIVE METABOLIC STAT 12/29/2016 11:08 Results for this PANEL AM CDT procedure are in the results section. PROTHROMBIN TIME WITH STAT 12/29/2016 11:08 Results for this INR AM CDT procedure are in the results section. HC COMPLETE BLD COUNT STAT 12/29/2016 11:08 Results for this W/AUTO DIFF AM CDT procedure are in the results section. ECG 12-LEAD STAT 12/29/2016 10:48 Results for this AM CDT procedure are in the results section. CLOSTRIDIUM DIFFICILE Routine 12/28/2016 10:06 Results for this TOXIN AM CDT procedure are in the results section. PHENYTOIN LEVEL Routine 12/27/2016 3:38 Results for this AM CDT procedure are in the results section. MRI BRAIN WO CONTRAST Routine 12/27/2016 1:00 Results for this AM CDT procedure are in the results section. URINALYSIS SCREEN AND Routine 12/27/2016 12:03 Results for this MICROSCOPY, WITH REFLEX AM CDT procedure are in TO CULTURE the results section. URINE CULTURE Routine 12/27/2016 12:03 Results for this AM CDT procedure are in the results section. PHENYTOIN LEVEL Routine 12/26/2016 3:15 Results for this PM CDT procedure are in the results section. ESTIMATED GFR Routine 12/26/2016 3:15 Results for this PM CDT procedure are in the results section. CREATININE LEVEL Routine 12/26/2016 3:15 Results for this PM CDT procedure are in the results section. BUN LEVEL Routine 12/26/2016 3:15 Results for this PM CDT procedure are in the results section. BLOOD CULTURE, AEROBIC Routine 12/26/2016 3:15 Results for this & ANAEROBIC PM CDT procedure are in the results section. BLOOD CULTURE, AEROBIC Routine 12/26/2016 3:15 Results for this & ANAEROBIC PM CDT procedure are in the results section. US GUIDED VASCULAR STAT 12/26/2016 2:26 Results for this ACCESS PM CDT procedure are in the results section. HC CVL PICC INSERT 5 STAT 12/26/2016 2:26 Results for this YRS OR > PM CDT procedure are in the results section. MRI UPPER EXTREMITY Routine 12/25/2016 10:22 Results for this JOINT WO CONTRAST LEFT PM CDT procedure are in the results section. EEG AWAKE/DROWSY LESS Routine 12/25/2016 1:27 Results for this THAN 41 MIN PM CDT procedure are in the results section. US DUPLEX VENOUS UPPER Routine 12/25/2016 10:11 Results for this EXTREMITY LEFT AM CDT procedure are in the results section. TROPONIN Timed 12/25/2016 12:40 Results for this AM CDT procedure are in the results section. TROPONIN Timed 12/24/2016 8:45 Results for this PM CDT procedure are in the results section. ECG ED PRELIMINARY Routine 12/24/2016 2:40 Results for this INTERPRETATION PM CDT procedure are in the results section. ECG 12-LEAD STAT 12/24/2016 1:16 Results for this PM CDT procedure are in the results section. ESTIMATED GFR STAT 12/23/2016 1:30 Results for this PM CDT procedure are in the results section. B NATRIURETIC PEPTIDE STAT 12/23/2016 1:30 Results for this PM CDT procedure are in the results section. TROPONIN STAT 12/23/2016 1:30 Results for this PM CDT procedure are in the results section. COMPREHENSIVE METABOLIC STAT 12/23/2016 1:30 Results for this PANEL PM CDT procedure are in the results section. HC COMPLETE BLD COUNT STAT 12/23/2016 1:30 Results for this W/AUTO DIFF PM CDT procedure are in the results section. XR CHEST 1 VW PORTABLE STAT 12/23/2016 1:00 Results for this PM CDT procedure are in the results section. after 12/22/2016 Results ECG ED Preliminary Interpretation - NOT AN ORDER (12/18/2017 10:30 PM)Only the most recent of28 resultswithin the time period is included. Narrative Performed At Stan Thompson MD 12/20/2017 11:22 AM ECG ED Preliminary Interpretation - Not an Order Performed by: STAN THOMPSON Authorized by: STAN THOMPSON ECG reviewed by ED Physician in the absence of a press assistant and feeder: yes Previous ECG: Previous ECG:Compared to current Comparison ECG info:November 2017 Similarity:No change Interpretation: Interpretation: abnormal Rate: ECG rate:77 ECG rate assessment: normal Rhythm: Rhythm: sinus rhythm QRS: QRS axis:Normal QRS intervals:Normal ST segments: ST segments:Normal T waves: T waves: flattening Flattening:III Estimated GFR (12/18/2017 10:19 PM)Only the most recent of24 resultswithin the time period is included. GFR Non Af Amer >90 mL/min/1.73 m2 [facility] DEPARTMENT OF PATHOLOGY AND GENOMIC MEDICINE GFR Af Amer >90 mL/min/1.73 m2 [facility] DEPARTMENT OF Comment: PATHOLOGY AND GENOMIC Chronic kidney disease: <60 mL/min/1.73m2 MEDICINE Kidney failure: <15 mL/min/1.73m2 The estimated GFR is calculated from the IDMS-traceable Modification of Diet in Renal Disease Equation. The accuracy of the calculation is poor when the creatinine is normal. Calculated values >90 mL/min/1.73m2 are not reported. This equation has not been validated in children (<18 years), women, the elderly (>70 years), or ethnic groups other than Caucasians and Americans. Specimen Plasma specimen Performing Organization Address City/State/Zipcode Phone Number [facility] DEPARTMENT OF PATHOLOGY AND [address] [place] [address] Troponin (12/18/2017 10:19 PM)Only the most recent of29 resultswithin the time period is included. Troponin <0.30 0.00 - 0.30 ng/mL [facility] DEPARTMENT OF PATHOLOGY Comment: AND GENOMIC MEDICINE 0.30 - 1.49 ng/mlMay indicate increased risk of acute coronary syndrome. >=1.5 ng/mlConsistent with acute myocardial infarction. The diagnostic value of a single normal or non-diagnostic result is questionable.Serial samples at 2-6 hour intervals are required to rule out acute myocardial injury. Specimen Plasma specimen Performing Organization Address City/[facility] Phone Number [facility] DEPARTMENT OF PATHOLOGY AND [address] [place] [address] CBC with platelet and differential (12/18/2017 10:19 PM)Only the most recent of24 resultswithin the time period is included. WBC 7.01 4.50 - 11.00 k/uL [facility] DEPARTMENT OF PATHOLOGY AND GENOMIC MEDICINE RBC 3.74 (L) 4.40 - 6.00 m/uL [facility] DEPARTMENT OF PATHOLOGY AND GENOMIC MEDICINE HGB 9.4 (L) 14.0 - 18.0 g/dL [facility] DEPARTMENT OF PATHOLOGY AND GENOMIC MEDICINE HCT 30.7 (L) 41.0 - 51.0 % [facility] DEPARTMENT OF PATHOLOGY AND GENOMIC MEDICINE MCV 82.1 82.0 - 100.0 fL [facility] DEPARTMENT OF PATHOLOGY AND GENOMIC MEDICINE MCH 25.1 (L) 27.0 - 34.0 pg [facility] DEPARTMENT OF PATHOLOGY AND GENOMIC MEDICINE MCHC 30.6 (L) 31.0 - 37.0 g/dL [facility] DEPARTMENT OF PATHOLOGY AND GENOMIC MEDICINE RDW - SD 53.9 37.0 - 55.0 fL [facility] DEPARTMENT OF PATHOLOGY AND GENOMIC MEDICINE MPV 9.6 8.8 - 13.2 fL [facility] DEPARTMENT OF PATHOLOGY AND GENOMIC MEDICINE Platelet count 287 150 - 400 k/uL [facility] DEPARTMENT OF PATHOLOGY AND GENOMIC MEDICINE Nucleated RBC 0.30 /100 WBC [facility] DEPARTMENT OF PATHOLOGY AND GENOMIC MEDICINE Neutrophils 61.0 39.0 - 69.0 % [facility] DEPARTMENT OF PATHOLOGY AND GENOMIC MEDICINE Lymphocytes 18.4 (L) 25.0 - 45.0 % [facility] DEPARTMENT OF PATHOLOGY AND GENOMIC MEDICINE Monocytes 8.4 0.0 - 10.0 % [facility] DEPARTMENT OF PATHOLOGY AND GENOMIC MEDICINE Eosinophils 11.3 (H) 0.0 - 5.0 % [facility] DEPARTMENT OF PATHOLOGY AND GENOMIC MEDICINE Basophils 0.6 0.0 - 1.0 % [facility] DEPARTMENT OF PATHOLOGY AND GENOMIC MEDICINE Immature granulocytes 0.3Comment: 0.0 - 1.0 % [facility] DEPARTMENT OF "Immature PATHOLOGY AND GENOMIC granulocytes" MEDICINE (promyelocytes, myelocytes, metamyelocytes) Specimen Blood Performing Organization Address City/State/Zipcode Phone Number [facility] DEPARTMENT OF PATHOLOGY AND [address] [place] [address] MEDICINE B natriuretic peptide (12/18/2017 10:19 PM)Only the most recent of16 resultswithin the time period is included. BNP 41 0 - 100 pg/mL [facility] DEPARTMENT OF PATHOLOGY AND GENOMIC MEDICINE Specimen Blood Performing Organization Address City/[facility]/Zipcode Phone Number [facility] DEPARTMENT OF PATHOLOGY AND [address] [place] [address] Comprehensive metabolic panel (12/18/2017 10:19 PM)Only the most recent of23 resultswithin the time period is included. Sodium 136 135 - 148 mEq/L [facility] DEPARTMENT OF PATHOLOGY AND GENOMIC MEDICINE Potassium SEE COMMENTComment: 3.5 - 5.0 mEq/L [facility] DEPARTMENT OF Footnote--------- PATHOLOGY AND GENOMIC MEDICINE Chloride 101 98 - 112 mEq/L [facility] DEPARTMENT OF PATHOLOGY AND GENOMIC MEDICINE CO2 20 (L) 24 - 31 mEq/L [facility] DEPARTMENT OF PATHOLOGY AND GENOMIC MEDICINE Anion gap 15@ANIO 7 - 15 mEq/L [facility] DEPARTMENT OF PATHOLOGY AND GENOMIC MEDICINE BUN 14 6 - 20 mg/dL [facility] DEPARTMENT OF PATHOLOGY AND GENOMIC MEDICINE Creatinine 0.7 0.7 - 1.2 mg/dL [facility] DEPARTMENT OF PATHOLOGY AND GENOMIC MEDICINE Glucose 105 (H) 65 - 99 mg/dL [facility] DEPARTMENT OF PATHOLOGY AND GENOMIC MEDICINE Calcium 8.6 8.3 - 10.2 mg/dL [facility] DEPARTMENT OF PATHOLOGY AND GENOMIC MEDICINE Protein 6.6 6.3 - 8.3 g/dL [facility] DEPARTMENT OF Comment: PATHOLOGY AND GENOMIC 4.6-7.0 g/dL MEDICINE 1 week 4.4-7.6 g/dL 7 months-1year5.1-7.3 g/dL 1-2 years5.6-7.5 g/dL >3 years6.0-8.0 g/dL 18-150 6.3-8.3 g/dL Albumin 3.0 (L) 3.5 - 5.0 g/dL [facility] DEPARTMENT OF PATHOLOGY AND GENOMIC MEDICINE A/G ratio 0.8 0.7 - 3.8 [facility] DEPARTMENT OF PATHOLOGY AND GENOMIC MEDICINE Alkaline phosphatase 70 40 - 129 U/L [facility] DEPARTMENT OF PATHOLOGY AND GENOMIC MEDICINE AST SEE COMMENTComment: 10 - 50 U/L [facility] DEPARTMENT OF Footnote--------- PATHOLOGY AND GENOMIC MEDICINE ALT SEE COMMENTComment: 5 - 50 U/L [facility] DEPARTMENT OF Footnote--------- PATHOLOGY AND GENOMIC MEDICINE Total bilirubin <0.2 0.0 - 1.2 mg/dL [facility] DEPARTMENT OF PATHOLOGY AND GENOMIC MEDICINE Specimen Plasma specimen Performing Organization Address City/State/Zipcode Phone Number [facility] DEPARTMENT OF PATHOLOGY AND [address] [place] [address] [facility] ECG 12 lead (12/18/2017 9:25 PM)Only the most recent of34 resultswithin the time period is included. Ventricular rate 77 [facility] MUSE Atrial rate 77 [facility] MUSE [place] interval 140 [facility] MUSE QRSD interval 92 [facility] QT interval 396 [facility] MUSE QTC interval 448 [facility] M[facility] P axis 1 23 [facility] QRS axis 1 -14 [facility] MUSE T wave axis 23 [facility] MUSE EKG impression Normal sinus rhythm-Normal ECG-In automated [facility] MUSE comparison with ECG of 03-DEC-2017 16:55,-No significant change was found- Performing Organization Address [facility] Phone Number [facility] MUSE [address] [place] [address] XR Chest 1 Vw Portable (12/03/2017 5:22 PM)Only the most recent of15 resultswithin the time period is included. Narrative Performed At EXAMINATION:XR CHEST 1 VW PORTABLE [facility] CLINICAL HISTORY:Chest Pain COMPARISON:November 18, 2017 IMPRESSION: 1.Heart size within normal limits. 2.No infiltrates or effusions are seen. 3.The vessels are not congested. [facility]-[id number] Procedure Note Interface, Radiology Results Incoming - 12/03/2017 5:25 PM CDT EXAMINATION: XR CHEST 1 VW PORTABLE CLINICAL HISTORY: Chest Pain COMPARISON: November 18, 2017 IMPRESSION: 1. Heart size within normal limits. 2. No infiltrates or effusions are seen. 3. The vessels are not congested. [id number] Performing Organization Address [facility] Phone Number [facility] [address] [place] [address] XR Knee 3 Vw Right (11/25/2017 8:17 PM) Narrative Performed At PROCEDURE:XR KNEE 3 VW RIGHT [facility] CLINICAL HISTORY:pain to joint COMPARISON:None. TECHNIQUE: Anatomy imaged: Right knee 3 views of the knee were performed in the anterior internal oblique and true lateral projections FINDINGS: No acute fracture, dislocation, bone destruction, or periosteal reaction is demonstrated of the bones about the knee. The tibiofemoral joint space and patellofemoral joint spaces are preserved. No knee joint effusion is seen. IMPRESSION: No acute bony abnormality. [facility]-[id number] . Procedure Note Interface, Radiology Results Incoming - 11/25/2017 8:34 PM CDT PROCEDURE: XR KNEE 3 VW RIGHT CLINICAL HISTORY: pain to joint COMPARISON: None. TECHNIQUE: Anatomy imaged: Right knee 3 views of the knee were performed in the anterior internal oblique and true lateral projections FINDINGS: No acute fracture, dislocation, bone destruction, or periosteal reaction is demonstrated of the bones about the knee. The tibiofemoral joint space and patellofemoral joint spaces are preserved. No knee joint effusion is seen. IMPRESSION: No acute bony abnormality. [facility]-[id number] . Performing Organization Address City/State/Zipcode Phone Number [facility] [address] [place] [address] Creatine kinase, total (CPK) (11/19/2017 4:08 AM)Only the most recent of14 resultswithin the time period is included. Creatine kinase 163 39 - 308 U/L [facility] DEPARTMENT OF PATHOLOGY AND GENOMIC MEDICINE Specimen Plasma specimen Performing Organization Address City/[facility]/Zipcode Phone Number [facility] DEPARTMENT OF PATHOLOGY [address] [facility] [address] [place] [address] Angiogram Pe Chest (11/19/2017 1:11 AM)Only the most recent of5 resultswithin the time period is included. Narrative Performed At CT ANGIOGRAM PE CHEST [facility] CLINICAL INDICATION: CP r o peddimer positive COMPARISON:CTA chest 11/08/2017. Chest radiograph 11/18/2017. TECHNIQUE:CT angiographic images of the chest were obtained during intravenous administration of iodinated contrast.Computerized, reformatted images and 3-D MIP images were obtained and archived (per CT pulmonary embolism protocol). CT scans are performed using radiation dose reduction techniques (iterative reconstruction and/or automated exposure control). Technical factors are evaluated and adjusted to ensure appropriate moderation of exposure. Automated dose management technology is applied to adjust radiation exposure while achieving a diagnostic quality image. FINDINGS: Pulmonary arteries: Diagnostic quality of study is adequate for the evaluation of pulmonary embolism. There is no evidence of acute or chronic pulmonary embolism. No evidence of right heart strain. The main pulmonary artery measures 23 mm in luminal diameter. Aorta:No aneurysm or dissection. Mild calcific atherosclerosis. Lungs and large airways:Clear. Pleura:No pleural effusion, pleural thickening, or pneumothorax. Heart and pericardium:Heart size is normal. No pericardial effusion. Mediastinum and kaushik:No mass or hematoma. Lymph nodes:No pathological adenopathy in the kaushik, axilla or mediastinum. Chest wall:Unremarkable. Bones:Mild degenerative changes. Upper abdomen: Status post cholecystectomy. IMPRESSION: 1. Negative CTA examination for pulmonary embolism. 2. Lungs without focal or confluent airspace consolidation. [facility]-[id number] Procedure Note Interface, Radiology Results Incoming - 11/19/2017 1:[address] ANGIOGRAM PE CHEST CLINICAL INDICATION: CP r o pe ddimer positive COMPARISON: CTA chest 11/08/2017. Chest radiograph 11/18/2017. TECHNIQUE: CT angiographic images of the chest were obtained during intravenous administration of iodinated contrast. Computerized, reformatted images and 3-D MIP images were obtained and archived (per CT pulmonary embolism protocol). CT scans are performed using radiation dose reduction techniques (iterative reconstruction and/or automated exposure control). Technical factors are evaluated and adjusted to ensure appropriate moderation of exposure. Automated dose management technology is applied to adjust radiation exposure while achieving a diagnostic quality image. FINDINGS: Pulmonary arteries: Diagnostic quality of study is adequate for the evaluation of pulmonary embolism. There is no evidence of acute or chronic pulmonary embolism. No evidence of right heart strain. The main pulmonary artery measures 23 mm in luminal diameter. Aorta: No aneurysm or dissection. Mild calcific atherosclerosis. Lungs and large airways: Clear. Pleura: No pleural effusion, pleural thickening, or pneumothorax. Heart and pericardium: Heart size is normal. No pericardial effusion. Mediastinum and kaushik: No mass or hematoma. Lymph nodes: No pathological adenopathy in the kaushik, axilla or mediastinum. Chest wall: Unremarkable. Bones: Mild degenerative changes. Upper abdomen: Status post cholecystectomy. IMPRESSION: 1. Negative CTA examination for pulmonary embolism. 2. Lungs without focal or confluent airspace consolidation. [facility]-[id number] Performing Organization Address City/State/Zipcode Phone Number [facility] [address] [place] [address] Urine drugs of abuse screen (11/19/2017 1:10 AM)Only the most recent of4 resultswithin the time period is included. Amphetamine screen, urine Negative [facility] DEPARTMENT OF PATHOLOGY AND GENOMIC MEDICINE Barbiturate screen, urine Negative [facility] DEPARTMENT OF PATHOLOGY AND GENOMIC MEDICINE Benzodiazepine screen, Negative [facility] DEPARTMENT OF urine PATHOLOGY AND GENOMIC MEDICINE Cannabinoid screen, urine Negative [facility] DEPARTMENT OF PATHOLOGY AND GENOMIC MEDICINE Cocaine screen, urine Negative [facility] DEPARTMENT OF PATHOLOGY AND GENOMIC MEDICINE Methadone metabolite Negative [facility] DEPARTMENT OF (EDDP), urine PATHOLOGY AND GENOMIC MEDICINE Opiates screen, urine Negative [facility] DEPARTMENT OF PATHOLOGY AND GENOMIC MEDICINE Phencyclidine screen, urine Negative [facility] DEPARTMENT OF PATHOLOGY AND GENOMIC MEDICINE Tricyclic screen, urine Negative [facility] DEPARTMENT OF Comment: PATHOLOGY AND GENOMIC Drug screen minimum concentration of detectability MEDICINE Ymuykrgvaiff6906 ng/mL Barbiturates 200 ng/mL Zwmoyldkildjzus805 ng/mL Yynqcte614 ng/mL Enqzsrwgg230 ng/mL Xgnactp553 ng/mL Phencyclidine 25 ng/mL Zmpfqkybello92 ng/mL Scddwalobh3078 ng/mL Negative test results indicates presumptive evidence of lack of clinically significant drug concentration in this urine specimen. Positive test results are presumptive evidence of clinically significant drug concentration in this urine specimen. Testing performed for medical purposes only. Specimen Urine Performing Organization Address [facility] Phone Number [facility] DEPARTMENT OF PATHOLOGY [address] [place] [address] AND [employer] [facility] Partial thromboplastin time, activated (11/18/2017 11:00 PM)Only the most recent of9 resultswithin the time period is included. PTT 28.0 23.0 - 36.0 sec [facility] DEPARTMENT OF Comment: PATHOLOGY AND [facility] PTT therapeutic range for unfractionated heparin is MEDICINE 61.0-112.0 seconds which corresponds to Anti-Xa 0.3-0.7 U/ml. Specimen Blood Performing Organization Address [facility] Phone Number [facility] DEPARTMENT OF PATHOLOGY [address] [place] [address]. [place] [address] AND [employer] [facility] Prothrombin time with INR (11/18/2017 11:00 PM)Only the most recent of16 resultswithin the time period is included. Prothrombin time 13.7 12.0 - 15.0 sec [facility] DEPARTMENT OF PATHOLOGY AND [employer] [facility] INR 1.0 [facility] DEPARTMENT OF Comment: PATHOLOGY AND [employer] The International Normalized Ratio (INR) is a therapeutic MEDICINE monitoring tool for patients who are stable on oral anticoagulant therapy. An INR of 2.0-3.0 is suggested for deep vein thrombosis/pulmonary embolism. Specimen Blood Performing Organization Address [facility] Phone Number [facility] DEPARTMENT OF PATHOLOGY [address] [place] [address]. [place] [address] AND [employer] [facility] D-dimer (11/18/2017 11:00 PM)Only the most recent of2 resultswithin the time period is included. D-dimer 0.58 (H) 0.00 - 0.40 ug/mL [facility] DEPARTMENT OF Comment: PATHOLOGY AND GENOMIC Units are ug/ml Fibrinogen Equivalent Unit. MEDICINE When combined with low clinical probability, D-dimer results of less than 0.5 ug/ml FEU have a good negativepredictive value in excluding PE or DVT. For D-dimer results greater than 0.5ug/ml FEU further testing is indicated if PE or DVT is suspectedclinically. Elevated D-dimer results have been reported in DVT, PE, and DIC cases and may indicate the presence of a clot. D-dimer results may be elevated due to old age, , inflammatory diseases, trauma, post-operative states, sepsis, and malignancies. Specimen Blood Performing Organization Address City/[facility]/Zipcode Phone Number [facility] DEPARTMENT OF PATHOLOGY [id number] [place] [address]. [place] [address] AND [employer] [facility] Lipase level (11/18/2017 11:00 PM)Only the most recent of7 resultswithin the time period is included. Lipase 29 13 - 60 U/L [facility] DEPARTMENT OF PATHOLOGY AND [employer] [facility] Specimen Plasma specimen Performing Organization Address [facility] Phone Number [facility] DEPARTMENT OF PATHOLOGY [address] [facility] [place] [address] AND [employer] XR Knee 1 Or 2 Vw Right (11/18/2017 10:21 PM) Narrative Performed At EXAM:XR KNEE 1 OR 2 VW RIGHT [facility] CLINICAL H[facility]:right knee pain COMPARISON:None. IMPRESSION: No evidence of acute displaced right knee fracture or dislocation. Mild tricompartmental degenerative changes identified, worse within the medial and patellofemoral compartments. No significant joint effusion. Mild prepatellar soft tissue thickening which may be physiological or secondary to recent trauma. [facility]-[id number] Procedure Note Interface, Radiology Results Incoming - 11/18/2017 10:36 PM CDT EXAM: XR KNEE 1 OR 2 VW RIGHT CLINICAL HISTORY: right knee pain COMPARISON: None. IMPRESSION: No evidence of acute displaced right knee fracture or dislocation. Mild tricompartmental degenerative changes identified, worse within the medial and patellofemoral compartments. No significant joint effusion. Mild prepatellar soft tissue thickening which may be physiological or secondary to recent trauma. [facility]-[id number] Performing Organization Address City/[facility]/Zipcode Phone Number [facility] [address] [place] [address] Pv duplex venous lower extremity (11/08/2017 10:30 AM) Narrative Performed At [facility] Vascular Ultrasound Laboratory Lower Extremity Venous Report [id number] [address] Pat.Name:Zaid TAPIA.ID:[id number] .Date: 11/08/2017 Exam Time: 10:07:00 AM Study Type:LE Venous DOBAge:1960,57Y Sex: MALESonogrphr: NELDA Alberto Pat. Stat.:OutpatientRoom: TapeVol: , [facility] - 4: [id number] Echo Event ID:[id number] Order ID:[id number] Reason for Study:Right leg pain and swelling; Shortness of breath. Procedures:Colorflow, Grayscale/2D, Pulsed wave Doppler Race:C SUMMARY: DUPLEX SCAN OBSERVATIONS Deep VeinsSuperficial Veins RightLeft RightLeft EIV GSV (prox) Normal CFV Normal Normal (above knee) Femoral Normal GSV (dist) Normal Profunda Normal (below knee) Popliteal Normal PT (prox) Normal SSV Normal PT (dist) Normal Peroneal Normal RIGHT:There is normal compressibility with no evidence of echogenic material noted within the lumen of the visualized veins.Colorflow and Doppler signals are normal. PRELIMINARY FINDINGS 1.Normal venous duplex exam of the visualized veins. Findings reported to and read back by Capri Mendoza on 11/08/2017 @ 10:40. PHYSICIAN INTERPRETATION 1.Venous examination of the right lower extremity and left groin demonstrates no evidence of venous thrombosis. Signed 11/08/2017 10:50 AM Yeison Rose MD Procedure Note Interface, Radiology Results In - 11/08/2017 10:51 AM CDT Vascular Ultrasound Laboratory Lower Extremity Venous Report [id number] [place] [address] Pat.Name: KIRA TAPIA.ID: [id number] .Date: 11/08/2017 Exam Time: 10:07:00 AM Study Type:LE Venous Age: 1 1960,57Y Sex: MALE Sonogrphr: NELDA Alberto Pat. Stat.:Outpatient Room: ER Tape Vol: FE, [facility] - 4: [id number] Echo Event ID:[id number] Order ID: [id number] Reason for Study:Right leg pain and swelling; Shortness of breath. Procedures:Colorflow, Grayscale/2D, Pulsed wave Doppler Race: C SUMMARY: DUPLEX SCAN OBSERVATIONS Deep Veins Superficial Veins Right Left Right Left EIV GSV (prox) Normal CFV Normal Normal (above knee) Femoral Normal GSV (dist) Normal Profunda Normal (below knee) Popliteal Normal PT (prox) Normal SSV Normal PT (dist) Normal Peroneal Normal RIGHT: There is normal compressibility with no evidence of echogenic material noted within the lumen of the visualized veins. Colorflow and Doppler signals are normal. PRELIMINARY FINDINGS 1. Normal venous duplex exam of the visualized veins. Findings reported to and read back by Capri Mendoza on 11/08/2017 @ 10:40. PHYSICIAN INTERPRETATION 1. Venous examination of the right lower extremity and left groin demonstrates no evidence of venous thrombosis. Signed 11/08/2017 10:50 AM Yeison Rose MD Performing Organization Address City/State/Zipcode Phone Number [facility] [address] [place] [address] Lactic acid level, SEPSIS - Now and repeat 2x every 3 hours (11/08/2017 8:45 AM ) Lactic acid 1.9 0.5 - 2.2 mmol/L [facility] DEPARTMENT OF PATHOLOGY AND GENOMIC MEDICINE Specimen Plasma specimen Performing Organization Address [facility] Phone Number [facility] DEPARTMENT OF PATHOLOGY AND [address] [place] [address] GENOMIC MEDICINE Blood culture, aerobic & anaerobic (11/08/2017 8:45 AM)Only the most recent of3 resultswithin the time period is included. Blood culture isolate No growth after 5 days of incubation. [facility] DEPARTMENT OF Comment: PATHOLOGY AND GENOMIC Specimen Information MEDICINE Specimen Source: Blood Specimen Site: Peripheral Forearm Right Specimen Blood Performing Organization Address City/[facility] Phone Number [facility] DEPARTMENT OF PATHOLOGY AND [address] [place] [address] GENOMIC MEDICINE Phosphorus level (11/08/2017 8:45 AM) Phosphorus 3.4 2.4 - 4.5 mg/dL [facility] DEPARTMENT OF PATHOLOGY AND GENOMIC MEDICINE Specimen Plasma specimen Performing Organization Address [facility] Phone Number [facility] DEPARTMENT OF PATHOLOGY AND [address] [place] [address] GENOMIC MEDICINE Magnesium level (11/08/2017 8:45 AM) Magnesium 1.9 1.6 - 2.6 mg/dL [facility] DEPARTMENT OF PATHOLOGY AND GENOMIC MEDICINE Specimen Plasma specimen Performing Organization Address [facility] Phone Number [facility] DEPARTMENT OF PATHOLOGY AND [address] [place], [place] [id number] [facility] CT Abdomen Pelvis Wo Contrast (10/12/2017 2:45 AM) Narrative Performed At EXAMINATION:CT ABDOMEN PELVIS WO CONTRAST [facility] CLINICAL HISTORY:ABDOMINAL PAIN TECHNIQUE: Multiple axial images of the abdomen and pelvis were obtained without intravenous administration of iodinated contrast. Sagittal and coronal computerized reformatted images were also obtained. The lack of intravenous contrast reduces the sensitivity of detecting solid organ disease. CT imaging was performed with iterative reconstruction technique and/or automated exposure control to reduce radiation dose. COMPARISON:08/27/2017 IMPRESSION: Patient is status post cholecystectomy. Liver, spleen, pancreas, adrenal glands are normal. Punctate nonobstructive calculus is seen of superior pole of right kidney. Left kidney is normal. No hydronephrosis or hydroureter. The bladder is normal. No free intraperitoneal fluid or air. Infrarenal inferior vena cava filter is in place. Diverticulosis is seen without diverticulitis. Appendix is normal. No gastrointestinal tract obstruction. No acute osseous abnormalities. CONCLUSION: Punctate nonobstructive calculus is seen of superior pole of right kidney. [facility]-[id number] Procedure Note Hm Interface, Radiology Results Incoming - 10/12/2017 3:18 AM CDT EXAMINATION: CT ABDOMEN PELVIS WO CONTRAST CLINICAL HISTORY: ABDOMINAL PAIN TECHNIQUE: Multiple axial images of the abdomen and pelvis were obtained without intravenous administration of iodinated contrast. Sagittal and coronal computerized reformatted images were also obtained. The lack of intravenous contrast reduces the sensitivity of detecting solid organ disease. CT imaging was performed with iterative reconstruction technique and/or automated exposure control to reduce radiation dose. COMPARISON: 08/27/2017 IMPRESSION: Patient is status post cholecystectomy. Liver, spleen, pancreas, adrenal glands are normal. Punctate nonobstructive calculus is seen of superior pole of right kidney. Left kidney is normal. No hydronephrosis or hydroureter. The bladder is normal. No free intraperitoneal fluid or air. Infrarenal inferior vena cava filter is in place. Diverticulosis is seen without diverticulitis. Appendix is normal. No gastrointestinal tract obstruction. No acute osseous abnormalities. CONCLUSION: Punctate nonobstructive calculus is seen of superior pole of right kidney. [facility]-[id number] Performing Organization Address City/[facility]/Zipcode Phone Number BETTY [address] [place] [address] Amylase level (10/12/2017 2:16 AM)Only the most recent of2 resultswithin the time period is included. Amylase 18 13 - 73 U/L [facility] DEPARTMENT OF PATHOLOGY AND GENOMIC MEDICINE Specimen Plasma specimen Performing Organization Address City/[facility]/Zipcode Phone Number [facility] DEPARTMENT OF PATHOLOGY [address] [place] [address] AND [employer] Urinalysis screen and microscopy, with reflex to culture (09/28/2017 12:30 PM) Only the most recent of7 resultswithin the time period is included. Specimen site Clean catch [facility] DEPARTMENT OF PATHOLOGY AND GENOMIC MEDICINE Color, UA Yellow [facility] DEPARTMENT OF PATHOLOGY AND GENOMIC MEDICINE Appearance, UA Clear [facility] DEPARTMENT OF PATHOLOGY AND GENOMIC MEDICINE Specific gravity, UA 1.013 1.001 - 1.030 [facility] DEPARTMENT OF PATHOLOGY AND GENOMIC MEDICINE pH, UA 7.0 5.0 - 9.0 [facility] DEPARTMENT OF PATHOLOGY AND GENOMIC MEDICINE Protein, UA Negative Negative [facility] DEPARTMENT OF PATHOLOGY AND GENOMIC MEDICINE Glucose, UA Negative Negative [facility] DEPARTMENT OF PATHOLOGY AND GENOMIC MEDICINE Ketones, UA Trace (A) Negative [facility] DEPARTMENT OF PATHOLOGY AND GENOMIC MEDICINE Bilirubin, UA Negative Negative [facility] DEPARTMENT OF PATHOLOGY AND GENOMIC MEDICINE Blood, UA Negative Negative [facility] DEPARTMENT OF PATHOLOGY AND GENOMIC MEDICINE Nitrite, UA Negative Negative [facility] DEPARTMENT OF PATHOLOGY AND GENOMIC MEDICINE Urobilinogen, UA <2.0 <2.0 E.U./dL [facility] DEPARTMENT OF PATHOLOGY AND GENOMIC MEDICINE Leukocyte esterase, UA Negative Negative [facility] DEPARTMENT OF PATHOLOGY AND GENOMIC MEDICINE Epithelial cells, UA <1 /HPF [facility] DEPARTMENT OF PATHOLOGY AND GENOMIC MEDICINE WBC, UA 2 (H) 0 - 1 /HPF [facility] DEPARTMENT OF PATHOLOGY AND GENOMIC MEDICINE RBC, UA <1 0 - 5 /HPF [facility] DEPARTMENT OF PATHOLOGY AND GENOMIC MEDICINE Bacteria, UA Few None seen [facility] DEPARTMENT OF PATHOLOGY AND GENOMIC MEDICINE Yeast, UA None seen [facility] DEPARTMENT OF PATHOLOGY AND GENOMIC MEDICINE Yeast with pseudohyphae, UA None seen [facility] DEPARTMENT OF PATHOLOGY AND GENOMIC MEDICINE Specimen Urine Performing Organization Address City/[facility]/Zipcode Phone Number [facility] DEPARTMENT OF PATHOLOGY [address] [place] [address] AND [facility] Urine culture (09/28/2017 12:30 PM)Only the most recent of7 resultswithin the time period is included. Urine culture SEE COMMENTComment: Bacteriuria [facility] DEPARTMENT OF PATHOLOGY screen negative. AND GENOMIC MEDICINE Performing Organization Address City/[facility]/Zipcode Phone Number [facility] DEPARTMENT OF PATHOLOGY [id number] [place] [address] AND [employer] [facility] CT Head Wo Contrast (09/28/2017 10:14 AM)Only the most recent of2 resultswithin the time period is included. Narrative Performed At EXAMINATION:CT HEAD WO CONTRAST [facility] CLINICAL HISTORY:Syncope COMPARISON:CT head 09/03/2017. TECHNIQUE: Noncontrast head CT performed using radiation dose reduction techniques.Technical factors are evaluated and adjusted to ensure appropriate moderation of exposure.Automated dose management technology is applied to adjust radiation exposure while achieving a diagnostic quality image. FINDINGS: No evidence of acute intracranial hemorrhage, mass, mass effect, midline shift, or acute infarct. Ventricles and sulci are normal in appearance for patient's age.Mild arteriosclerosis of the cavernous and paraclinoid internal carotid arteries. Basal cisterns are clear. Calvarium is intact. Orbits are normal in appearance. Trace sinus inflammatory changes.Mastoid air cells are clear. 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 IMPRESSION: 1. No CT evidence of acute intracranial abnormality. Stable exam compared with 09/03/2017. [id number] Procedure Note Interface, Radiology Results Incoming - 09/28/2017 10:21 AM CDT EXAMINATION: CT HEAD WO CONTRAST CLINICAL HISTORY: Syncope COMPARISON: CT head 09/03/2017. TECHNIQUE: Noncontrast head CT performed using radiation dose reduction techniques. Technical factors are evaluated and adjusted to ensure appropriate moderation of exposure. Automated dose management technology is applied to adjust radiation exposure while achieving a diagnostic quality image. FINDINGS: No evidence of acute intracranial hemorrhage, mass, mass effect, midline shift , or acute infarct. Ventricles and sulci are normal in appearance for patient's age. Mild arteriosclerosis of the cavernous and paraclinoid internal carotid arteries. Basal cisterns are clear. Calvarium is intact. Orbits are normal in appearance. Trace sinus inflammatory changes. Mastoid air cells are clear. 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 IMPRESSION: 1. No CT evidence of acute intracranial abnormality. Stable exam compared with 09/03/2017. [id number] Performing Organization Address City/State/Zipcode Phone Number [facility] [address] [place] [address] Insert peripheral IV (09/21/2017 9:38 PM)Only the most recent of2 resultswithin the time period is included. Narrative Performed At Rina Khan MD 09/22/20173:25 AM Insert peripheral IV Date/Time: 09/21/2017 10:38 PM Performed by: RINA KHAN Authorized by: RINA KHAN Consent: The procedure was performed in an emergent situation. Verbal consent obtained. Risks and benefits: risks, benefits and alternatives were discussed Consent given by: patient Patient understanding: patient states understanding of the procedure being performed Imaging studies: imaging studies available Required items: required blood products, implants, devices, and special equipment available Patient identity confirmed: arm band, hospital-assigned identification number and verbally with patient Time out: Immediately prior to procedure a "time out" was called to verify the correct patient, procedure, equipment, computer support analyst and site/side marked as required. Preparation: Patient was prepped and draped in the usual sterile fashion. Local anesthesia used: no Anesthesia: Local anesthesia used: no Sedation: Patient sedated: no Patient tolerance: Patient tolerated the procedure well with no immediate complications Comments: Ultrasound guided IV successfully placed in left AC CT Renal Stone Protocol (08/27/2017 8:42 AM)Only the most recent of2 resultswithin the time period is included. Narrative Performed At PROCEDURE:CT RENAL STONE PROTOCOL HM [facility] CLINICAL HISTORY:bilateral flank painintrarenal stones notes on scan saturday COMPARISON:August 25, 2017 TECHNIQUE: Contiguous 2.5 mm axial images were obtained from the hemidiaphragms to the pubic symphysis without administration of intravenous iodinated or oral contrast media on a multidetector CT scanner using helical scanning technique followed by 2-D sagittal and coronal reconstructions. The dose length product for this procedure was 1458 mGy-cm. CT imaging was performed with iterative reconstruction technique and/or automated exposure control to reduce radiation dose. FINDINGS: 1. Lung parenchymal window settings demonstrate no abnormality in the visualized lung bases. 2. 2 calculi are seen in the upper pole the right kidney laterally with the larger calculus measuring 4.1 mm diameter. The previously noted right upper pole calculus has fragmented into 2 pieces. No dilatation of the pelvicalyceal system is seen. 3. No calculi are demonstrated along the course of the ureters. 4. The enteric tract is generally better evaluated if opacified with enteric contrast. The appendix is Is visualized and is normal.. 5. Note is made of fatty infiltration of the head and uncinate process of the pancreas. The remainder of the pancreas is unremarkable. No abnormality is demonstrated of the remainder of the intra-abdominal solid organs on this unenhanced study. 6. No abnormality of the abdominal aorta is seen. The IVC demonstrates a filter.. 7. The sagittal and coronal reconstructed images demonstrate no additional abnormality. CT PELVIS- No calculi are seen in the distal ureters or UV junction. No pelvic fluid collections or masses are seen. IMPRESSION: Abnormal study. Interval fragmentation of the right upper pole renal calculus into 2 pieces. Otherwise unchanged. No evidence of obstructive uropathy. [id number] . Procedure Note Interface, Radiology Results Incoming - 08/27/2017 8:53 AM CDT PROCEDURE: CT RENAL STONE PROTOCOL CLINICAL HISTORY: bilateral flank pain intrarenal stones notes on scan saturday COMPARISON: August 25, 2017 TECHNIQUE: Contiguous 2.5 mm axial images were obtained from the hemidiaphragms to the pubic symphysis without administration of intravenous iodinated or oral contrast media on a multidetector CT scanner using helical scanning technique followed by 2-D sagittal and coronal reconstructions. The dose length product for this procedure was 1458 mGy-cm. CT imaging was performed with iterative reconstruction technique and/or automated exposure control to reduce radiation dose. FINDINGS: 1. Lung parenchymal window settings demonstrate no abnormality in the visualized lung bases. 2. 2 calculi are seen in the upper pole the right kidney laterally with the larger calculus measuring 4.1 mm diameter. The previously noted right upper pole calculus has fragmented into 2 pieces. No dilatation of the pelvicalyceal system is seen. 3. No calculi are demonstrated along the course of the ureters. 4. The enteric tract is generally better evaluated if opacified with enteric contrast. The appendix is Is visualized and is normal.. 5. Note is made of fatty infiltration of the head and uncinate process of the pancreas. The remainder of the pancreas is unremarkable. No abnormality is demonstrated of the remainder of the intra-abdominal solid organs on this unenhanced study. 6. No abnormality of the abdominal aorta is seen. The IVC demonstrates a filter.. 7. The sagittal and coronal reconstructed images demonstrate no additional abnormality. CT PELVIS- No calculi are seen in the distal ureters or UV junction. No pelvic fluid collections or masses are seen. IMPRESSION: Abnormal study. Interval fragmentation of the right upper pole renal calculus into 2 pieces. Otherwise unchanged. No evidence of obstructive uropathy. [id number] . Performing Organization Address City/State/Zipcode Phone Number BETTY [address] [place] [address] Thyroid stimulating hormone (05/12/2017 6:30 PM) TSH 1.79 0.27 - 4.20 uIU/mL [facility] DEPARTMENT OF PATHOLOGY AND GENOMIC MEDICINE Specimen Plasma specimen Performing Organization Address City/State/Zipcode Phone Number [facility] DEPARTMENT OF PATHOLOGY AND [address] [place] [address] GENOMIC MEDICINE T4, free (05/12/2017 6:30 PM) T4, free 1.1 0.9 - 1.7 ng/dL [facility] DEPARTMENT OF PATHOLOGY AND GENOMIC MEDICINE Specimen Plasma specimen Performing Organization Address [facility] Phone Number [facility] DEPARTMENT OF PATHOLOGY AND [address] [place] [address] Alcohol level, blood (05/12/2017 6:30 PM) Alcohol None Detected mg/dL [facility] DEPARTMENT OF PATHOLOGY Comment: AND GENOMIC MEDICINE Normal None Detected Legal Intoxication in [place]80 mg/dL (0.08%) - Whole Blood Toxic Astimxjsddand395 mg/dL (0.2%) Potentially [id number] - 500 mg/dL (0.35 - 0.5%) Alcohol percent None Detected % [facility] DEPARTMENT OF PATHOLOGY AND GENOMIC MEDICINE Specimen Plasma specimen Performing Organization Address [facility] Phone Number [facility] DEPARTMENT OF PATHOLOGY AND [address] [place] [address] Acetaminophen level (05/12/2017 6:30 PM) Acetaminophen level <15.0 10.0 - 30.0 ug/mL [facility] DEPARTMENT OF Comment: PATHOLOGY AND GENOMIC Therapeutic 10-30 ug/mL MEDICINE Possible Toxicity 150-200 ug/mL Probable Toxicity >200 ug/mL Specimen Plasma specimen Performing Organization Address [facility] Phone Number [facility] DEPARTMENT OF PATHOLOGY AND [address] [place] [address] Salicylate level (05/12/2017 6:30 PM) Salicylate <3.0 3.0 - 30.0 mg/dL [facility] DEPARTMENT OF PATHOLOGY AND GENOMIC MEDICINE Specimen Plasma specimen Performing Organization Address [facility] Phone Number [facility] DEPARTMENT OF PATHOLOGY AND [address] [place] [address] XR Chest 2 Vw (05/04/2017 3:22 AM) Narrative Performed At EXAMINATION: XR CHEST 2 VW [facility] CLINICAL HISTORY: Chest pain COMPARISON:04/29/2017. IMPRESSION: The lungs are clear. No pleural effusion or pneumothorax. The cardiac silhouette is borderline enlarged. No acute osseous abnormalities. [facility]-[id number] Procedure Note Interface, Radiology Results Incoming - 05/04/2017 3:44 AM [employer] EXAMINATION: XR CHEST 2 VW CLINICAL HISTORY: Chest pain COMPARISON: 04/29/2017. IMPRESSION: The lungs are clear. No pleural effusion or pneumothorax. The cardiac silhouette is borderline enlarged. No acute osseous abnormalities. [facility]-[id number] Performing Organization Address City/[facility]/Zipcode Phone Number [facility] [address] [place] [address] Occult blood, stool (03/25/2017 2:46 PM) Occult blood, stool Positive for Occult blood (A) [facility] DEPARTMENT OF Comment: PATHOLOGY AND GENOMIC Specimen Information MEDICINE Specimen Source: Stool Specimen Site: Nonpreserved Specimen Stool - Nonpreserved Performing Organization Address [facility] Phone Number [facility] DEPARTMENT OF PATHOLOGY AND [address] [place] [phone] GENOMIC MEDICINE Type and screen (03/17/2017 3:00 PM) ABO grouping A [facility] DEPARTMENT OF PATHOLOGY AND GENOMIC MEDICINE Rh type POS [facility] DEPARTMENT OF PATHOLOGY AND GENOMIC MEDICINE Antibody screen (gel) NEG [facility] DEPARTMENT OF PATHOLOGY AND GENOMIC MEDICINE Specimen Blood Performing Organization Address [facility] Phone Number [facility] DEPARTMENT OF PATHOLOGY [phone] [place] [address] AND [employer] MEDICINE Phenytoin level (02/13/2017 12:35 PM)Only the most recent of3 resultswithin the time period is included. Phenytoin <0.9 10.0 - 20.0 ug/mL [facility] DEPARTMENT OF PATHOLOGY AND Comment: GENOMIC MEDICINE Therapeutic Range: 10 - 20 ug/mL Specimen Blood Performing Organization Address [facility] Phone Number [facility] DEPARTMENT OF PATHOLOGY [phone] [place] [address] AND GENOMIC MEDICINE XR Hand 3+ Vw Right (01/10/2017 1:50 PM) Narrative Performed At EXAMINATION:XR HAND 3VW RIGHT [facility] CLINICAL HISTORY:pain and swelling to index finger COMPARISON:None. FINDINGS: Diffuse soft tissues swelling about the right hand crest at No fracture or dislocation. No radiopaque foreign body. Slight degenerative osteophytic changes at the DIP joint of the third and fourth digits IMPRESSION: Diffuse soft tissue swelling. 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 FINDINGS: Diffuse soft tissues swelling about the right hand crest at No fracture or dislocation. No radiopaque foreign body. Slight degenerative osteophytic changes at the DIP joint of the third and fourth digits IMPRESSION: Diffuse soft tissue swelling. 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 No acute bony abnormality [facility]-[id number] Performing Organization Address City/[facility] Phone Number [facility] [address] [place] [address] C difficile toxin (12/28/2016 10:06 AM) Clostridium difficile No Clostridium difficle toxin present [facility] DEPARTMENT OF toxin Comment: PATHOLOGY AND GENOMIC Specimen Information MEDICINE Specimen Source: Stool Specimen Site: Per rectum Specimen Stool - Per rectum Performing Organization Address [facility] Phone Number [facility] DEPARTMENT OF PATHOLOGY AND [address] [place] [address] GENOMIC MEDICINE MRI Brain Wo Contrast (12/27/2016 1:00 AM) Narrative Performed At EXAMINATION:[facility]:SEIZURES NEW OR PROGRESSIVE COMPARISON:CT brain August 22, 2016. FINDINGS: 1. Diffusion images demonstrate no evidence of acute ischemia. 2.Conventional images demonstrate very minimal nonspecific cerebral white matter microvascular changes. There is no significant volume loss. 3.There is a mild mucosal thickening in the ethmoid sinus and to a lesser degree maxillary sinuses. IMPRESSION: Minimal chronic microvascular white matter changes. No acute abnormality. No definite change from the prior study. [facility]-[id number] Procedure Note [facility], Radiology Results Incoming - 12/27/2016 1:07 AM CDT EXAMINATION: MRI BRAIN WO CONTRAST CLINICAL HISTORY: SEIZURES NEW OR PROGRESSIVE COMPARISON: CT brain August 22, 2016. FINDINGS: 1. Diffusion images demonstrate no evidence of acute ischemia. 2. Conventional images demonstrate very minimal nonspecific cerebral white matter microvascular changes. There is no significant volume loss. 3. There is a mild mucosal thickening in the ethmoid sinus and to a lesser degree maxillary sinuses. IMPRESSION: Minimal chronic microvascular white matter changes. No acute abnormality. No definite change from the prior study. [facility]-[id number] Performing Organization Address [facility] Phone Number [facility] [address] [place] [address] BUN level (12/26/2016 3:15 PM) BUN 18 8 - 24 mg/dL [facility] DEPARTMENT OF PATHOLOGY AND GENOMIC MEDICINE Specimen Plasma specimen Performing Organization Address [facility] Phone Number [facility] DEPARTMENT OF PATHOLOGY AND [address] [address] [place] [address] [facility] Creatinine level (12/26/2016 3:15 PM) Creatinine 0.8 0.5 - 1.5 mg/dL [facility] DEPARTMENT OF PATHOLOGY AND GENOMIC MEDICINE Specimen Plasma specimen Performing Organization Address [facility] Phone Number [facility] DEPARTMENT OF PATHOLOGY AND [address] [place] [address] [facility] IR PICC Line Insertion Fluoroscopy (12/26/2016 2:26 PM) Narrative Performed At EXAMINATION:IR PICC LINE INSERTION FLUOROSCOPY, US GUIDED VASCULAR [facility] ACCESS CLINICAL HISTORY:PICC Line Insertion, thrombus in left basilic vein. needs fluroscopy. Left hand cellulitis with need for an intravenous antibiotics. COMPARISON:None. PROCEDURE: Peripherally inserted central catheter (PICC) placement Performing Radiologist: Fede Jacobsen MD Assistants: None Pre Procedure Diagnosis: PICC Line Insertion, thrombus in left basilic vein. needs fluroscopy Post Procedure Diagnosis: PICC Line Insertion, thrombus in left basilic vein. needs fluroscopy INDICATION: Left hand cellulitis with need for intravenous antibiotics. Complications: No immediate post procedure complications. IMPRESSION: 1.Technically successful insertion of a right sided dual lumen power injectable PICC. 2.The right basilic and brachial veins are patent and compressible on preprocedure ultrasound. PLAN: The PICC is ready for immediate use. PROCEDURE SUMMARY: 1.Venous access with ultrasound guidance 2.PICC insertion under fluoroscopic guidance PROCEDURE DETAILS: Pre-procedure: Comparison studies: None Written and informed consent for the procedure was obtained from the patient. Prophylactic antibiotics: None Preparation: The right upper extremity was prepared and draped using all elements of maximal sterile barrier technique including sterile gloves, sterile gown, catheter, mask, large sterile sheet, sterile ultrasound probe cover, hand hygiene and cutaneous antisepsis using chlorhexidine. Anesthesia/Sedation: Level of anesthesia: None (1% lidocaine only) Medications used: 1% lidocaine. Duration of intraservice [id number]/sedation: N/A Access: Local anesthesia was administered. The right upper extremity was evaluated with preprocedure ultrasound and right upper extremity veins were noted to be patent. Real-time ultrasound was used to visualize needle entry into the vessel and a permanent image was stored. Vein accessed: Right brachial vein Access technique: 5 Salvadorean micropuncture set Venography: Vein accessed: N/A Indication for venography: Not performed Findings: N/A PICC placement: A 0.018 inch measuring wire was used to measure the intravascular distance. The catheter was trimmed to the appropriate length and placed into the vein under fluoroscopic guidance via a peel-away sheath. The catheter tip location was fluoroscopically verified and an image was archived. PICC placed: Bard dual-lumen power PICC Catheter size: 5 Salvadorean Catheter length: 46 cm Catheter tip position: Atriocaval junction Closure: The catheter was secured to the subcutaneous tissues and a sterile bandage was applied. Catheter securement technique: StatLock Contrast: Contrast agent: None Contrast volume: N/A Radiation dose: Fluoroscopy time: 1.3 minutes Image hold: 1 Fluoroscopic images: 0 Total Fluoroscopic dose: Reference air Kerma 17.7 mGy. Additional details: Additional description of procedure: N/A Additional findings: N/A Equipment details: N/A Estimated blood loss: Less than 10 cc [id number] Procedure Note Hm Interface, Radiology Results Incoming - 12/26/2016 3:20 PM CDT EXAMINATION: IR PICC LINE INSERTION FLUOROSCOPY, US GUIDED VASCULAR ACCESS CLINICAL HISTORY: PICC Line Insertion, thrombus in left basilic vein. needs fluroscopy. Left hand cellulitis with need for an intravenous antibiotics. COMPARISON: None. PROCEDURE: Peripherally inserted central catheter (PICC) placement Performing Radiologist: Fede Jacobsen MD Assistants: None Pre Procedure Diagnosis: PICC Line Insertion, thrombus in left basilic vein. needs fluroscopy Post Procedure Diagnosis: PICC Line Insertion, thrombus in left basilic vein. needs fluroscopy INDICATION: Left hand cellulitis with need for intravenous antibiotics. Complications: No immediate post procedure complications. IMPRESSION: 1. Technically successful insertion of a right sided dual lumen power injectable PICC. 2. The right basilic and brachial veins are patent and compressible on preprocedure ultrasound. PLAN: The PICC is ready for immediate use. PROCEDURE SUMMARY: 1. Venous access with ultrasound guidance 2. PICC insertion under fluoroscopic guidance PROCEDURE DETAILS: Pre-procedure: Comparison studies: None Written and informed consent for the procedure was obtained from the patient. Prophylactic antibiotics: None Preparation: The right upper extremity was prepared and draped using all elements of maximal sterile barrier technique including sterile gloves, sterile gown, catheter, mask, large sterile sheet, sterile ultrasound probe cover, hand hygiene and cutaneous antisepsis using chlorhexidine. Anesthesia/Sedation: Level of anesthesia: None (1% lidocaine only) Medications used: 1% lidocaine. Duration of intraservice [id number] anesthesia/sedation: N/A Access: Local anesthesia was administered. The right upper extremity was evaluated with preprocedure ultrasound and right upper extremity veins were noted to be patent. Real-time ultrasound was used to visualize needle entry into the vessel and a permanent image was stored. Vein accessed: Right brachial vein Access technique: 5 Salvadorean micropuncture set Venography: Vein accessed: N/A Indication for venography: Not performed Findings: N/A PICC placement: A 0.018 inch measuring wire was used to measure the intravascular distance. The catheter was trimmed to the appropriate length and placed into the vein under fluoroscopic guidance via a peel-away sheath. The catheter tip location was fluoroscopically verified and an image was archived. PICC placed: Bard dual-lumen power PICC Catheter size: 5 Salvadorean Catheter length: 46 cm Catheter tip position: Atriocaval junction Closure: The catheter was secured to the subcutaneous tissues and a sterile bandage was applied. Catheter securement technique: StatLock Contrast: Contrast agent: None Contrast volume: N/A Radiation dose: Fluoroscopy time: 1.3 minutes Image hold: 1 Fluoroscopic images: 0 Total Fluoroscopic dose: Reference air Kerma 17.7 mGy. Additional details: Additional description of procedure: N/A Additional findings: N/A Equipment details: N/A Estimated blood loss: Less than 10 cc [id number] Performing Organization Address City/State/Zipcode Phone Number [facility] [address] [place] [address] US Guided Vascular Access (12/26/2016 2:26 PM) Narrative Performed At EXAMINATION:IR PICC LINE INSERTION FLUOROSCOPY, US GUIDED VASCULAR [facility] ACCESS CLINICAL HISTORY:PICC Line Insertion, thrombus in left basilic vein. needs fluroscopy. Left hand cellulitis with need for an intravenous antibiotics. COMPARISON:None. PROCEDURE: Peripherally inserted central catheter (PICC) placement Performing Radiologist: Fede Jacobsen MD Assistants: None Pre Procedure Diagnosis: PICC Line Insertion, thrombus in left basilic vein. needs fluroscopy Post Procedure Diagnosis: PICC Line Insertion, thrombus in left basilic vein. needs fluroscopy INDICATION: Left hand cellulitis with need for intravenous antibiotics. Complications: No immediate post procedure complications. IMPRESSION: 1.Technically successful insertion of a right sided dual lumen power injectable PICC. 2.The right basilic and brachial veins are patent and compressible on preprocedure ultrasound. PLAN: The PICC is ready for immediate use. PROCEDURE SUMMARY: 1.Venous access with ultrasound guidance 2.PICC insertion under fluoroscopic guidance PROCEDURE DETAILS: Pre-procedure: Comparison studies: None Written and informed consent for the procedure was obtained from the patient. Prophylactic antibiotics: None Preparation: The right upper extremity was prepared and draped using all elements of maximal sterile barrier technique including sterile gloves, sterile gown, catheter, mask, large sterile sheet, sterile ultrasound probe cover, hand hygiene and cutaneous antisepsis using chlorhexidine. Anesthesia/Sedation: Level of anesthesia: None (1% lidocaine only) Medications used: 1% lidocaine. Duration of intraservice ycvp-ga-grmomoqvaipipp/sedation: N/A Access: Local anesthesia was administered. The right upper extremity was evaluated with preprocedure ultrasound and right upper extremity veins were noted to be patent. Real-time ultrasound was used to visualize needle entry into the vessel and a permanent image was stored. Vein accessed: Right brachial vein Access technique: 5 Salvadorean micropuncture set Venography: Vein accessed: N/A Indication for venography: Not performed Findings: N/A PICC placement: A 0.018 inch measuring wire was used to measure the intravascular distance. The catheter was trimmed to the appropriate length and placed into the vein under fluoroscopic guidance via a peel-away sheath. The catheter tip location was fluoroscopically verified and an image was archived. PICC placed: Bard dual-lumen power PICC Catheter size: 5 Salvadorean Catheter length: 46 cm Catheter tip position: Atriocaval junction Closure: The catheter was secured to the subcutaneous tissues and a sterile bandage was applied. Catheter securement technique: StatLock Contrast: Contrast agent: None Contrast volume: N/A Radiation dose: Fluoroscopy time: 1.3 minutes Image hold: 1 Fluoroscopic images: 0 Total Fluoroscopic dose: Reference air Kerma 17.7 mGy. Additional details: Additional description of procedure: N/A Additional findings: N/A Equipment details: N/A Estimated blood loss: Less than 10 cc [facility][id number] Procedure Note Hm Interface, Radiology Results Incoming - 12/26/2016 3:20 PM CDT EXAMINATION: IR PICC LINE INSERTION FLUOROSCOPY, US GUIDED VASCULAR ACCESS CLINICAL HISTORY: PICC Line Insertion, thrombus in left basilic vein. needs fluroscopy. Left hand cellulitis with need for an intravenous antibiotics. COMPARISON: None. PROCEDURE: Peripherally inserted central catheter (PICC) placement Performing Radiologist: Fede Jacobsen MD Assistants: None Pre Procedure Diagnosis: PICC Line Insertion, thrombus in left basilic vein. needs fluroscopy Post Procedure Diagnosis: PICC Line Insertion, thrombus in left basilic vein. needs fluroscopy INDICATION: Left hand cellulitis with need for intravenous antibiotics. Complications: No immediate post procedure complications. IMPRESSION: 1. Technically successful insertion of a right sided dual lumen power injectable PICC. 2. The right basilic and brachial veins are patent and compressible on preprocedure ultrasound. PLAN: The PICC is ready for immediate use. PROCEDURE SUMMARY: 1. Venous access with ultrasound guidance 2. PICC insertion under fluoroscopic guidance PROCEDURE DETAILS: Pre-procedure: Comparison studies: None Written and informed consent for the procedure was obtained from the patient. Prophylactic antibiotics: None Preparation: The right upper extremity was prepared and draped using all elements of maximal sterile barrier technique including sterile gloves, sterile gown, catheter, mask, large sterile sheet, sterile ultrasound probe cover, hand hygiene and cutaneous antisepsis using chlorhexidine. Anesthesia/Sedation: Level of anesthesia: None (1% lidocaine only) Medications used: 1% lidocaine. Duration of intraservice knsp-[id number] anesthesia/sedation: N/A Access: Local anesthesia was administered. The right upper extremity was evaluated with preprocedure ultrasound and right upper extremity veins were noted to be patent. Real-time ultrasound was used to visualize needle entry into the vessel and a permanent image was stored. Vein accessed: Right brachial vein Access technique: 5 Salvadorean micropuncture set Venography: Vein accessed: N/A Indication for venography: Not performed Findings: N/A PICC placement: A 0.018 inch measuring wire was used to measure the intravascular distance. The catheter was trimmed to the appropriate length and placed into the vein under fluoroscopic guidance via a peel-away sheath. The catheter tip location was fluoroscopically verified and an image was archived. PICC placed: Bard dual-lumen power PICC Catheter size: 5 Salvadorean Catheter length: 46 cm Catheter tip position: Atriocaval junction Closure: The catheter was secured to the subcutaneous tissues and a sterile bandage was applied. Catheter securement technique: StatLock Contrast: Contrast agent: None Contrast volume: N/A Radiation dose: Fluoroscopy time: 1.3 minutes Image hold: 1 Fluoroscopic images: 0 Total Fluoroscopic dose: Reference air Kerma 17.7 mGy. Additional details: Additional description of procedure: N/A Additional findings: N/A Equipment details: N/A Estimated blood loss: Less than 10 cc [id number] Performing Organization Address City/State/Zipcode Phone Number [facility] [address] [place] [address] MRI Upper Extremity Joint Wo Contrast Left (12/25/2016 10:22 PM) Narrative Performed At EXAMINATION:MRI UPPER EXTREMITY JOINT WO [facility]AST [facility] CLINICAL HISTORY:infection, L hand swelling at thumb root after insect bite COMPARISON:None. TECHNIQUE: Multiplanar, multisequence MRI examination of the left hand was performed without contrast. IMPRESSION: 1.There is generalized cutaneous soft tissue edema compatible with cellulitis. 2.No discrete abscess collection is seen. 3.Flexor and extensor tendons are unremarkable, without evidence of tenosynovitis. 4.All joint spaces are intact. 5.No abnormality of regional bone marrow. [facility]-[id number] Procedure Note Hm Interface, Radiology Results Incoming - 12/25/2016 10:44 PM CDT EXAMINATION: MRI UPPER EXTREMITY JOINT WO CONTRAST LEFT CLINICAL HISTORY: infection, L hand swelling at thumb root after insect bite COMPARISON: None. TECHNIQUE: Multiplanar, multisequence MRI examination of the left hand was performed without contrast. IMPRESSION: 1. There is generalized cutaneous soft tissue edema compatible with cellulitis. 2. No discrete abscess collection is seen. 3. Flexor and extensor tendons are unremarkable, without evidence of tenosynovitis. 4. All joint spaces are intact. 5. No abnormality of regional bone marrow. [facility]-[id number] Performing Organization Address City/State/Zipcode Phone Number [facility] [address] [place] [address] EEG (routine) (12/25/2016 1:27 PM) Impressions Performed At Essentially low voltage alpha activity, which [facility] DEPARTMENT OF PATHOLOGY AND GENOMIC is muscle and movement MEDICINE artifacts. There are no epileptiformic discharges seen in this record. [id number] Conf/ / Ref#: [id number] CC: [id number]/ROJELIO BLACKBURN MD [id number]/TANK VALLES MD Admission (Discharged) on 12/24/2016 Detailed Report Narrative Performed At Cris Ramos MD [facility] DEPARTMENT OF PATHOLOGY AND Neurology GENOMIC MEDICINE Hide copied text Hover for attribution information [place], [place] EEG PATIENT NAME: KIRA TAPIA ENCOUNTER NO: [id number] DATE OF : 1960 DATE OF ADMISSION: 12/24/2016 DATE OF PROCEDURE: 12/25/2016 ADMITTING PHYSICIAN: ROJELIO BLACKBURN MD RENDERING PROVIDER: CRIS RAMOS MD PRESENTING COMPLAINT: Seizures. TECHNIQUE: This is an 8 to 9 Hz low voltage record, there are no paroxysmal bursts in this record.There are a lot of movement and muscle artifacts seen throughout the record. Dominant pattern in this record is low voltage alpha activity, which is arising from both posterior head regions in symmetrical fashion. Hyperventilation and photic stimulation was not performed in this record. Performing Organization Address City/State/Zipcode Phone Number [facility] DEPARTMENT OF PATHOLOGY AND [address] [facility] [address] [place] [address] [employer] duplex venous upper extremity (12/25/2016 10:11 AM) Narrative Performed At EXAMINATION: [facility] US DUPLEX VENOUS UPPER EXTREMITY LEFT CLINICAL HISTORY: hand swelling COMPARISON: None. TECHNIQUE: Grayscale, color Doppler, and spectral waveform analysis of the left upper extremity deep venous system was performed. FINDINGS: The left internal jugular vein demonstrates normal flow and compressibility. The left subclavian, axillary, brachial and forearm veins reveal no evidence of thrombosis. The veins demonstrate normal Doppler flow and normal compressibility. The basilic vein is thrombosed in the forearm. The cephalic vein is not visualized proximally, but is patent in the forearm. Cursory evaluation of the right subclavian vein demonstrates normal waveform. IMPRESSION: Thrombosis of the distal left basilic vein. Results of the study were called to nursing unit and confirmed by Anupama at 1348 hours. [id number] Procedure Note Interface, Radiology Results Incoming - 12/25/2016 1:55 PM CDT EXAMINATION: US DUPLEX VENOUS UPPER EXTREMITY LEFT CLINICAL HISTORY: hand swelling COMPARISON: None. TECHNIQUE: Grayscale, color Doppler, and spectral waveform analysis of the left upper extremity deep venous system was performed. FINDINGS: The left internal jugular vein demonstrates normal flow and compressibility. The left subclavian, axillary, brachial and forearm veins reveal no evidence of thrombosis. The veins demonstrate normal Doppler flow and normal compressibility. The basilic vein is thrombosed in the forearm. The cephalic vein is not visualized proximally, but is patent in the forearm. Cursory evaluation of the right subclavian vein demonstrates normal waveform. IMPRESSION: Thrombosis of the distal left basilic vein. Results of the study were called to nursing unit and confirmed by Anupama at 1348 hours. [id number] Performing Organization Address City/State/Zipcode Phone Number [phone] [place] [address] after 12/22/2016 Insurance Payer Benefit Plan / Group Subscriber ID Type Phone Address [employer] [place] xxxxxxxxx HMO [phone] [place], [place] [phone]
--- OUTSIDE RECORDS SUMMARY | 2017-12-23 13:54 | XMS REPORT | Clinical Summary ---
:1960 Author Organization [facility] Address [address] [place] [address] Phone Care Team Providers Name Role Phone Unavailable Primary Care Provider Unavailable Allergies Active Allergy Reactions Severity Noted Date Comments Nitroglycerin Swelling, Nausea And High 08/04/2008 "My throat swells Vomiting, Anaphylaxis up and closes." Tongue swelling States he "feels like passing out" when taking the patch or pill versions. Acetaminophen Swelling, Hives High 02/18/2009 Ibuprofen Hives 08/02/2010 Nsaids (Non-Steroidal 12/28/2015 Anti-Inflammatory Drug) Penicillins 11/11/2016 Sulfa (Sulfonamide 05/07/2017 Antibiotics) Tramadol 05/07/2017 Aspirin (Tartrazine Rash Low 10/30/2012 Only) Codeine Rash Low 03/16/2015 Haloperidol Lactate Rash Low 05/24/2008 Naproxen Sodium Rash, Nausea And Low 04/10/2014 Vomiting Phenytoin Itching, Nausea Only, Low 05/24/2008 C/o's throat Swelling, Rash, Other swelling (See Comments) Current Medications Prescription Sig. Disp. Refills Start Date End Date Status clopidogrel Take 1 tablet (75 30 tablet 0 01/02/2016 Active (PLAVIX) 75 mg mg total) by tablet mouth daily. ferrous sulfate Take 325 mg by 11/12/2014 Active 325 (65 FE) MG mouth daily with tablet breakfast . atorvastatin Take 20 mg by 02/03/2016 Active (LIPITOR) 20 MG mouth nightly . tablet ipratropium-albute Take 3 mLs by Active rol (DUO-NEB) 0.5 nebulization 3 mg-3 mg(2.5 mg (three) times base)/3 mL daily . nebulizer solution atenolol Take 25 mg by Active (TENORMIN) 25 MG mouth daily . tablet cetirizine Take 1 tablet (10 30 tablet 0 01/16/2017 01/17/20 Active (ZYRTEC) 10 MG mg total) by 18 tablet mouth daily. levETIRAcetam Take 1 tablet 60 tablet 0 01/16/2017 01/17/20 Active (KEPPRA) 1000 MG (1,000 mg total) 18 tablet by mouth 2 (two) times daily. traMADol (ULTRAM) Take 1 tablet (50 30 tablet 0 04/01/2017 Active 50 mg tablet mg total) by mouth every 6 (six) hours as needed for Pain. Max Daily Amount: 200 mg miscellaneous crutches. 1 each 0 11/27/2017 Active medical supply Misc miscellaneous Right knee 1 each 0 11/27/2017 Active medical supply immoblizer. Misc losartan (COZAAR) Take 1 tablet (25 30 tablet 1 11/27/2017 11/28/19 Active 25 MG tablet mg total) by 19 mouth daily Hold for SBP less than 90 mmHg.. traMADol (ULTRAM) Take 50 mg by 11/10/2016 04/01/20 Discontinued 50 mg tablet mouth every 6 17 (six) hours as needed for Pain . QUEtiapine Take 25 mg by 12/28/2016 01/28/20 (SEROQUEL) 25 MG mouth daily . 17 tablet QUEtiapine Take 200 mg by 12/28/2016 01/28/20 (SEROQUEL) 200 MG mouth nightly . 17 tablet pregabalin Take 25 mg by 12/28/2016 01/28/20 (LYRICA) 25 MG mouth 3 (three) 17 capsule times daily . phenytoin extended Take 300 mg by 01/12/20 Discontinued (DILANTIN) 300 MG mouth 2 (two) 17 ER capsule times daily . fLUoxetine Take 20 mg by 12/28/2016 01/28/20 (PROZAC) 20 MG mouth daily . 17 capsule busPIRone (BUSPAR) Take 15 mg by 12/28/2016 01/28/20 15 MG tablet mouth 3 (three) 17 times daily . cephalexin Take 1 capsule 30 capsule 0 01/16/2017 01/27/20 (KEFLEX) 500 MG (500 mg total) by 17 capsule mouth every 8 (eight) hours for 10 days. minocycline Take 1 capsule 20 capsule 0 01/16/2017 01/27/20 (MINOCIN,DYNACIN) (100 mg total) by 17 100 MG capsule mouth every 12 (twelve) hours for 10 days. polyethylene Take 17 g by 14 each 0 11/27/2017 12/01/19 glycol (GLYCOLAX) mouth daily as 18 17 gram packet needed (Constipation) for up to 3 days. 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 Psych Eval--- on 12/28/2016 Schizophrenia ([facility]) 01/11/2017 History of DVT (deep vein thrombosis) 01/11/2017 Allergic drug reaction, initial encounter 01/11/2017 Overview: 01/11/2017 Urticarial reaction w/ gross edema entire hands, lower lip and bilateral jaw/chin area w/ erythema, nausea, and c/o's throat swelling probably due to Dilantin. Patient notes he has been getting Dilantin for 2 months?? Chart allergies include Dilantin "rash". Dilantin d/c'd w Keppra 1000mg PO BID initiated per Dr. Perez due to tonic clonic seizure disorder. Allergic reaction 01/11/2017 Type 2 diabetes mellitus with insulin therapy ([facility]) 01/10/2017 Overview: sliding scale insulin per patient History of suicide attempt 10/23/2015 Overview: Attempted to slit wrist Benign essential HTN 06/05/2015 Chest pain, non-cardiac 03/16/2015 Severe recurrent major depressive disorder with psychotic features ([facility]) 02/15 History of GI bleed 09/01/2014 Overview: 09/11/2014 Presence of stent in coronary artery 04/19/2011 Overview: Overview: [facility] 07/12/2010 LAD 80% occlusion. Pt states he also got stented at [place], though reports not available Grand mal seizure disorder ([facility]) 02/24/2011 Overview: 01/10/2017 Allergic to Dilantin. Alcohol dependence in remission ([facility]) 09/23/2010 Cocaine dependence in remission ([facility]) 09/23/2010 Bipolar disorder ([facility]) Morbid obesity with BMI of 45.0-49.9, adult ([facility]) Overview: 01/11/2017 BMI 45.1 Hyperlipidemia History of Helicobacter pylori infection History of DE (myocardial infarction) Coronary artery disease---3 stents Mild mental retardation Resolved Problems Problem Noted Date Resolved Date Affective disorder ([facility]) 01/11/2017 01/11/2017 Overview: Bipolar 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 01/11/2017 CAD (coronary artery disease) 12/24/2010 01/11/2017 Overview: 01/11/2017 2 stents Disturbance in personality 09/23/2010 01/11/2017 Encounter for desensitization to allergen 09/10/2010 01/11/2017 Encounters Date Type Specialty Care Team Description 12/05/2017 - Emergency Emergency Medicine Gregor Hoffman, Acute GI bleeding 12/06/2017 (Primary Dx);Acute lower GI bleeding;Acute upper GI bleed;Anemia, unspecified type 11/27/2017 Orders Only General Internal Medicine 11/26/2017 - [facility] General Internal Shelia Bond MD Chest pain, 11/27/2017 Encounter Medicine Minnie Coyne non-cardiac;Coronary MD Shantelle artery disease Jimi Perez involving [place] MD Michael coronary artery of [place] heart without angina pectoris;History of suicide attempt;Mild mental retardation;Presence of stent in coronary artery;Undifferentia josé manuel schizophrenia ([facility]) 10/20/2017 Emergency Emergency Medicine Kira Freed Total body pain MD Jim (Primary Dx);Chest pain, unspecified type 08/25/2017 Emergency Emergency Medicine Lisa Brooks Syncope, unspecified MD Cathleen syncope type (Primary Dx);Contusion of scalp, initial encounter;Generalize d abdominal pain;Malingering 05/22/2017 Emergency Emergency Medicine Joe Max Mild mental MD Kiersten retardation (Primary Adrienne Mae, DO Dx);Drug-seeking behavior 05/07/2017 Hospital Cardiology Nestor Bowden Chest pain, Encounter MD Kellen unspecified Hansa Grijalva type;Rozina Powell MD hyperlipidemia;Morbi d obesity with BMI of 45.0-49.9, adult ([facility]);Chest pain, non-cardiac;Cocaine dependence in remission ([facility]);Mild mental retardation;Drug-see izabella behavior 04/18/2017 Emergency Emergency Medicine Cameron Barber Chest pain, unspecified type (Primary Dx) 03/31/2017 - [facility], Alcohol dependence 04/01/2017 Encounter Medicine MD in remission ([facility]);Benign essential HTN;Chest pain, non-cardiac;Coronary artery disease involving [place] coronary artery of [place] heart without angina pectoris;Mixed hyperlipidemia;Munch ausen syndrome 03/30/2017 Emergency Emergency Medicine Phil Belle Precordial chest MD James pain (Primary Dx) Kira Freed MD 03/30/2017 Emergency Emergency Medicine Madisyn Benites Other chest pain Cathleen (Primary Dx) 03/30/2017 Orders Only General Internal Medicine 01/19/2017 Emergency Emergency Medicine Ale Chest painPhil unspecified type MD Mango (Primary Dx) 01/19/2017 Emergency Emergency Medicine Rasheeda Dominguez Chest pain, MD Hawa unspecified type (Primary Dx) 01/19/2017 Orders Only General Internal Medicine 01/11/2017 - [facility], 01/16/2017 Encounter Medicine Jimi Hunter MD 12/29/2016 Emergency Emergency Medicine Christine Hanson MD Contusion of left wrist, initial encounter (Primary Dx);Seizure disorder ([facility]);Acute wrist pain, left after 12/22/2016 Social History Tobacco Use Types Packs/Day Years Used Date Former Smoker Cigarettes 2 5 Quit: 04/19/2014 Smokeless Tobacco: Never Used Alcohol Use Drinks/Week oz/Week Comments No Denies previous alcohol problems. Sex Assigned at Date Recorded Not on file Last Filed Vital Signs Vital Sign Reading Time Taken Blood Pressure 114/63 12/05/2017 9:50 PM CDT Pulse 89 12/05/2017 9:50 PM CDT Temperature 37.4 C (99.3 F) 12/05/2017 9:50 PM CDT Respiratory Rate 18 12/05/2017 9:50 PM CDT Oxygen Saturation 96% 12/05/2017 9:50 PM CDT Inhaled Oxygen Concentration - - Weight 123.4 kg (272 lb) 12/05/2017 9:50 PM CDT Height 165.1 cm (5' 5") 10/19/2017 11:58 PM CDT Body Mass Index 45.26 12/05/2017 9:50 PM CDT Plan of Treatment Health Maintenance Due Date Last Done Comments INFLUENZA VACCINE 02/24/2018 Results TRANSFUSION SERVICE REPORT - SCAN (12/07/2017 5:54 PM)Manual Differential ( 12:46 AM)Only the most recent of2 resultswithin the time period is included. Component Value Ref Range Total Counted WBC Morphology Normal Large Platelet Present Anisocytosis 2+ moderate Hypochromia 1+ few Microcytes 1+ few Specimen Performing Laboratory Blood [facility] [address] [place] [address] CBC with platelet count + automated diff (12/06/2017 12:46 AM)Only the most recent of7 resultswithin the time period is included. Component Value Ref Range WBC 7.7 4.0 - 10.0 K/L RBC 3.91 (L) 4.20 - 5.80 M/L Hemoglobin 9.9 (L) 13.0 - 16.8 GM/DL Hematocrit 31.0 (L) 40.0 - 50.0 % MCV 79.3 (L) 82.0 - 98.0 fL MCH 25.4 (L) 27.0 - 33.0 pg MCHC 32.0 32.0 - 36.0 GM/DL RDW 20.9 (H) 10.3 - 14.2 % Platelets 251 150 - 430 K/CU MM MPV 7.4 6.5 - 10.5 fL nRBC 0 0 - 0 /100 WBC % Neutros 66 % % Lymphs 18 % % Monos 8 % % Eos 8 % % Baso 0 % # Neutros 5.10 1.80 - 8.00 K/L # Lymphs 1.40 (L) 1.48 - 4.50 K/L # Monos 0.60 0.00 - 1.30 K/L # Eos 0.60 (H) 0.00 - 0.50 K/L # Baso 0.00 0.00 - 0.20 K/L Specimen Performing Laboratory Blood [facility] [address] [place] [id number] PT/INR (12/06/2017 12:46 AM) Component Value Ref Range Protime 10.4 9.3 - 12.0 seconds INR 1.0 <=5.9 Specimen Performing Laboratory [facility] [address] [place] [id number] Narrative RECOMMENDED COUMADIN/WARFARIN INR THERAPY RANGES STANDARD DOSE: 2.0 - 3.0 Includes: PROPHYLAXIS for venous thrombosis, systemic embolization; TREATMENT for venous thrombosis and/or pulmonary embolus. HIGH RISK: Target INR is 2.5-3.5 for patients with mechanical heart valves. CBC with platelet count + automated diff (12/06/2017 12:46 AM)Only the most recent of7 resultswithin the time period is included. Specimen Performing Laboratory Blood [facility] The following orders were created for panel order CBC with platelet count + automated diff. Procedure Abnormality Status --------- ------ CBC with platelet count ...[[id number]]AbnormalFinal result Manual Differential[[id number]] Fi nal result Please view results for these tests on the individual orders. Type and screen-manual (not [facility], [facility]) (12/06/2017 12:46 AM) Component Value Ref Range Ab Scrn NEGATIVE ABO Grouping A Rh Factor POS Specimen Performing Laboratory Blood [address] [address] Lipase (12/06/2017 12:46 AM) Component Value Ref Range Lipase 14 6 - 51 U/L Specimen Performing Laboratory Blood [facility] [address] [place] [id number] Comprehensive metabolic panel (12/06/2017 12:46 AM) Component Value Ref Range Protein, Total 6.5 6.0 - 8.5 gm/dL Albumin 3.3 (L) 3.5 - 5.0 g/dL Alkaline Phosphatase 72 30 - 115 U/L Total Bilirubin 0.2 0.1 - 1.2 mg/dL Sodium 139 135 - 148 meq/L Potassium 3.9 3.6 - 5.5 meq/L Chloride 110 (H) 98 - 106 meq/L CO2 17 (L) 20 - 29 meq/L BUN 12 10 - 26 mg/dL Creatinine 0.71 0.50 - 1.20 mg/dL Glucose 108 70 - 110 mg/dL Calcium 8.7 8.5 - 10.5 mg/dL AST 18 5 - 40 U/L ALT 17 5 - 50 U/L EGFR 114Comment: ESTIMATED GFR IS NOT ACCURATE mL/min/1.73 sq m CREATININE CLEARANCE IN PREDICTING GLOMERULAR FILTRATION RATE. ESTIMATED GFR IS NOT APPLICABLE FOR DIALYSIS PATIENTS. Specimen Performing Laboratory Blood [facility] [address] [place] [address] Occult blood x 1, stool (12/05/2017 10:49 PM) Component Value Ref Range Occult blood Positive (A) Negative Specimen Performing Laboratory Stool - Per Rectum [facility] [address] [place] [address] EKG-SCANNED (11/29/2017 12:22 PM)Only the most recent of11 resultswithin the time period is included.RHYTHM STRIP - SCAN (11/28/2017 1:01 PM)Only the most recent of4 resultswithin the time period is included.XR knee 3 views right (08/2017 2:02 PM) Specimen Performing Laboratory GE RIS Narrative FINAL REPORT Right knee, three images HISTORY: Pain COMPARISON: None IMPRESSION: No fracture. No dislocation. No joint effusion. No significant degenerative findings. Signed: Matt Berry MD Report Verified Date/Time:11/27/2017 15:01:58 Reading Location: [address] Ortho Consult Reading Room Procedure Note Interface, External Ris In - 11/27/2017 3:04 PM CDT FINAL REPORT Right knee, three images HISTORY: Pain COMPARISON: None IMPRESSION: No fracture. No dislocation. No joint effusion. No significant degenerative findings. Signed: Matt Berry MD Report Verified Date/Time: 11/27/2017 15:01:58 Reading Location: [facility] [id number] Ortho Consult Reading Room CARDIOGRAM REPORT - SCAN (11/27/2017 11:50 AM)ECG 12 lead (11/27/2017 10:54 AM)Only the most recent of5 resultswithin the time period is included. Specimen Performing Laboratory GE MUSE Narrative Ventricular Rate 51 BPM Atrial Rate 51 BPM P-R Interval 164 ms QRS Duration 96 ms Q-T Interval 480 ms QTC Calculation(Bazett) 442 ms P [place] 19 degrees R C[place] 20 degrees T [place] 15 degrees Sinus bradycardia Possible Inferior infarct , age undetermined Abnormal ECG When compared with ECG of 30-MAR-2017 21:18, PREVIOUS ECG IS PRESENT Procedure Note Interface, External Ris In - 11/28/2017 1:08 PM CDT Ventricular Rate 51 BPM Atrial Rate 51 BPM P-R Interval 164 ms QRS Duration 96 ms Q-T Interval 480 ms QTC Calculation(Bazett) 442 ms P [place] 19 degrees R [place] 20 degrees T [place] 15 degrees Sinus bradycardia Possible Inferior infarct , age undetermined Abnormal ECG When compared with ECG of 30-MAR-2017 21:18, PREVIOUS ECG IS PRESENT Transthoracic echo result (11/27/2017 9:39 AM) Component Value Ref Range Ejection Fraction Specimen Performing Laboratory [facility] Narrative Transthoracic Echocardiography Report (TTE) Demographics Patient NameKIRA FARNSWORTH Date of Study11/27/2017 SHIMON Gender Male Visit [id number] Race [id number] Number Date of 1960 Talia Perez Physician Age 57 year(s) Supply Chain Director Riaz Gomez, RCS, RVT Interpreting [facility] Physician Lashae Bravo MD Procedure Type of Study TTE procedure(Routine) Indications:Chest pain . Clinical History CAD,DE,STENTS,CHF,HTN Height: 65 inches Weight: 121.56 kg (268 lbs) BSA: 2.24 m^2 BMI: 44.6 kg/m^2 HR: 58 bpm BP: 126/87 mmHg Summary Normal overall left ventricular systolic function. No apparent segmental wall motion abnormalities. Estimated LVEF is >60%. Normal right ventricle structure and function. Mildly dilated left atrium. There is no aortic stenosis. There is trace aortic regurgitation. Mild tricuspid regurgitation. Estimated peak systolic PA pressure is 20-25 mmHg . Signature Findings Technical Quality: TDS LeftNormal left ventricular chamber size. Normal wall thickness. Ventricle Normal overall left ventricular systolic function. No apparent segmental wall motion abnormalities. Estimated LVEF is >60%. Left Atrium Mildly dilated left atrium. Right Normal right ventricle structure and function. Ventricle Right AtriumNormal right atrium. Aortic ValveThe aortic valve is normal in structure. There is no aortic stenosis. There is trace aortic regurgitation. Mitral ValveNormal mitral valve structure. Trace mitral regurgitation. Tricuspid Normal tricuspid valve structure. Valve Mild tricuspid regurgitation. Estimated peak systolic PA pressure is 20-25 mmHg . PulmonicNormal pulmonic valve structure and function. Valve Pericardium No evidence of pericardial effusion. Chambers/Structures Left Atrium LA Dimension: 4.33 cmLA Area: 21.64 cm^2 LA Volume: 71.05 ml LA Vol. Index: 32 ml/m^2 Left Ventricle LVIDd: 5.3 cmLVEDV:149.1 ml LVIDs: 3.55 cm LVESV:44.58 ml LV Septum Diastolic: 1.01 cm LVEF 2D Cube: 70.1 % LV PW Diastolic: 1.02 cm LV FS: 33 % LVOT Diameter: 2.21 cm LVEF: 70.1 % Right Ventricle RV Systolic Pressure: 30.24 mmHg Aorta Ao Root S of Teodora.: 3.48 cm Pulmonary Vein: S Velocity: 0.37 m/s D Velocity: 0.39 m/s Doppler/Quantitative Measurements Mitral Valve MV Peak E-Wave: 0.88 m/sMV Peak A-Wave: 0.75 m/s E/ A Ratio: 1.17 Peak Gradient: 3.07 mmHg Deceleration Time: 300.3 msec MR Velocity: 2.99 m/s MV Bucky. Peak: Tissue Doppler E' Septal Velocity: 0.11 m/s E' Lateral Velocity: 0.11 m/s Aortic Valve Peak Velocity: 1.33 m/s Peak Gradient: 7.05 mmHg Cusp Separation: 2.42 cm LVOT Peak Velocity: 1.18 m/s Peak Gradient: 5.54 mmHg LVOT Diameter: 2.21 cm LVOT Area: 3.84 cm^2 Tricuspid Valve Estimated RAP: 10 mmHg TR Velocity: 2.25 m/s TR Gradient: 20.24 mmHg Pulmonic Valve Peak Velocity: 0.73 m/s Peak Gradient: 2.11 mmHg Estimated PASP: 30.24 mmHg Procedure Note Interface, External Ris In - 12/13/2017 8:45 AM CDT Transthoracic Echocardiography Report (TTE) Demographics Patient Name KIRA FARNSWORTH Date of Study 11/27/2017 SHIMON Gender Male Visit Number [id number] Race Room Number 409 Number Date of 1960 Referring Jimi Perez Physician Age 57 year(s) Supply Chain Director Riaz Gomez, RCS, RVT Interpreting [facility] Physician Lashae Bravo MD Procedure Type of Study TTE procedure(Routine) Indications:Chest pain . Clinical History CAD,DE,STENTS,CHF,HTN Height: 65 inches Weight: 121.56 kg (268 lbs) BSA: 2.24 m^2 BMI: 44.6 kg/m^2 HR: 58 bpm BP: 126/87 mmHg Summary Normal overall left ventricular systolic function. No apparent segmental wall motion abnormalities. Estimated LVEF is >60%. Normal right ventricle structure and function. Mildly dilated left atrium. There is no aortic stenosis. There is trace aortic regurgitation. Mild tricuspid regurgitation. Estimated peak systolic PA pressure is 20-25 mmHg . Signature Findings Technical Quality: TDS Left Normal left ventricular chamber size. Normal wall thickness. Ventricle Normal overall left ventricular systolic function. No apparent segmental wall motion abnormalities. Estimated LVEF is >60%. Left Atrium Mildly dilated left atrium. Right Normal right ventricle structure and function. Ventricle Right Atrium Normal right atrium. Aortic Valve The aortic valve is normal in structure. There is no aortic stenosis. There is trace aortic regurgitation. Mitral Valve Normal mitral valve structure. Trace mitral regurgitation. Tricuspid Normal tricuspid valve structure. Valve Mild tricuspid regurgitation. Estimated peak systolic PA pressure is 20-25 mmHg . Pulmonic Normal pulmonic valve structure and function. Valve Pericardium No evidence of pericardial effusion. Chambers/Structures Left Atrium LA Dimension: 4.33 cm LA Area: 21.64 cm^2 LA Volume: 71.05 ml LA Vol. Index: 32 ml/m^2 Left Ventricle LVIDd: 5.3 cm LVEDV:149.1 ml LVIDs: 3.55 cm LVESV:44.58 ml LV Septum Diastolic: 1.01 cm LVEF 2D Cube: 70.1 % LV PW Diastolic: 1.02 cm LV FS: 33 % LVOT Diameter: 2.21 cm LVEF: 70.1 % Right Ventricle RV Systolic Pressure: 30.24 mmHg Aorta Ao Root S of Teodora.: 3.48 cm Pulmonary Vein: S Velocity: 0.37 m/s D Velocity: 0.39 m/s Doppler/Quantitative Measurements Mitral Valve MV Peak E-Wave: 0.88 m/s MV Peak A-Wave: 0.75 m/s E/A Ratio: 1.17 Peak Gradient: 3.07 mmHg Deceleration Time: 300.3 msec MR Velocity: 2.99 m/s MV Bucky. Peak: Tissue Doppler E' Septal Velocity: 0.11 m/s E' Lateral Velocity: 0.11 m/s Aortic Valve Peak Velocity: 1.33 m/s Peak Gradient: 7.05 mmHg Cusp Separation: 2.42 cm LVOT Peak Velocity: 1.18 m/s Peak Gradient: 5.54 mmHg LVOT Diameter: 2.21 cm LVOT Area: 3.84 cm^2 Tricuspid Valve Estimated RAP: 10 mmHg TR Velocity: 2.25 m/s TR Gradient: 20.24 mmHg Pulmonic Valve Peak Velocity: 0.73 m/s Peak Gradient: 2.11 mmHg Estimated PASP: 30.24 mmHg Troponin I (11/27/2017 3:31 AM)Only the most recent of10 resultswithin the time period is included. Component Value Ref Range Troponin I <0.01 0.00 - 0.15 ng/mL Specimen Performing Laboratory [facility] [address] [place] [address] Narrative Troponin I (TnI) levels must be interpreted in the context of the presenting symptoms and the clinical findings. Elevated TnI levels indicate myocardial damage, but are not specific for ischemic heart disease. Elevated TnI levels are seen in patients with other cardiac conditions (including myocarditis and congestive heart failure), and slight TnI elevations occur in patients with other conditions, including sepsis, renal failure, acidosis, acute neurological disease, and persistent tachyarrhythmia. Phosphorus (11/27/2017 3:31 AM) Component Value Ref Range Phosphorus 4.5 2.5 - 4.5 mg/dL Specimen Performing Laboratory [facility] [address] [place] [address] Magnesium (11/27/2017 3:31 AM)Only the most recent of3 resultswithin the time period is included. Component Value Ref Range Magnesium 1.8 1.5 - 3.0 mg/dL Specimen Performing Laboratory [facility] [address] [place] [address] Hemoglobin A1c (11/27/2017 3:31 AM) Component Value Ref Range Hemoglobin A1C 6.0 4.3 - 6.1 % Specimen Performing Laboratory [facility] [address] [place] [address] Basic metabolic panel (11/27/2017 3:31 AM)Only the most recent of6 resultswithin the time period is included. Component Value Ref Range Sodium 138 135 - 148 meq/L Potassium 4.1 3.5 - 5.5 meq/L Chloride 108 (H) 98 - 106 meq/L CO2 23 20 - 31 meq/L BUN 16 10 - 26 mg/dL Creatinine 0.77 0.50 - 1.20 mg/dL Glucose 105 70 - 110 mg/dL Calcium 8.7 8.5 - 10.5 mg/dL EGFR 103Comment: ESTIMATED GFR IS NOT ACCURATE mL/min/1.73 sq m CREATININE CLEARANCE IN PREDICTING GLOMERULAR FILTRATION RATE. ESTIMATED GFR IS NOT APPLICABLE FOR DIALYSIS PATIENTS. Specimen Performing Laboratory Blood [facility] [address] [place] [address] POC-Glucose meter (11/26/2017 9:07 PM)Only the most recent of26 resultswithin the time period is included. Component Value Ref Range POC-Glucose Meter 172 (H)Comment: TESTED AT [facility] [address] [facility] 70 - 110 mg/dL [facility] [id number] Specimen Performing Laboratory Blood [address] [address] PERIPHERAL VASCULAR REPORT - SCAN (11/26/2017 8:30 PM)Only the most recent of3 resultswithin the time period is included.Venous doppler leg, right (11/26/2017 7:35 PM) Specimen Performing Laboratory [facility] Narrative FINAL REPORT VENOUS DOPPLER LEG, RIGHT INDICATION: r/o DVT COMPARISON: None TECHNIQUE:Real time samson-scale, color, and spectral Doppler imaging of the bilateral lower extremity venous system. FINDINGS: Thigh: Normal compressibility and color Doppler flow within the common femoral, superficial femoral, and popliteal veins bilaterally. Calf: Normal compressibility is demonstrated within the peroneal and posterior tibial veins bilaterally. Additional findings: None. IMPRESSION: No Doppler or grayscale evidence for deep venous thrombosis bilaterally. Signed: JR Matta Robert MD Report Verified Date/Time:11/26/2017 19:51:03 Reading Location: [address] Reading Room Procedure Note Interface, External Ris In - 11/26/2017 8:02 PM CDT FINAL REPORT VENOUS DOPPLER LEG, RIGHT INDICATION: r/o DVT COMPARISON: None TECHNIQUE: Real time samson-scale, color, and spectral Doppler imaging of the bilateral lower extremity venous system. FINDINGS: Thigh: Normal compressibility and color Doppler flow within the common femoral, superficial femoral, and popliteal veins bilaterally. Calf: Normal compressibility is demonstrated within the peroneal and posterior tibial veins bilaterally. Additional findings: None. IMPRESSION: No Doppler or grayscale evidence for deep venous thrombosis bilaterally. Signed: JR Matta Robert MD Report Verified Date/Time: 11/26/2017 19:51:03 Reading Location: [address] Reading Room ECG Interpretation (08/25/2017 3:23 AM)Only the most recent of4 resultswithin the time period is included. Narrative Lisa Brooks MD 08/25/20173:23 AM ECG/EKG Interpretation Date/Time: 08/25/2017 2:33 AM Performed by: LISA BROOKS Authorized by: LISA BROOKS The ECG was interpreted by ED physician. This ECG was not compared with previous ECG(s).The ECG is interpreted as sinus rhythm. Rate is normal rate. Heart rate is 92 BPM. Conduction: conduction normal. ST segments normal. T waves abnormal. T-wave flattening in lead(s) V1 and III. Other findings: no other findings. Right sided lead use: right-sided leads not used. Left sided lead use: Posterior leads were not used. Clinical Impression: non-specific ECGECG reviewed and does not meet STEMI criteria. Patient tolerance: Patient tolerated the procedure well with no immediate complications XR chest 1 view portable / bedside (05/22/2017 5:55 AM)Only the most recent of5 resultswithin the time period is included. Specimen Performing Laboratory [facility] Narrative FINAL REPORT RAD, CHEST, 1 VIEW, NON DEPT INDICATION: blood clots/Pt has h/o CDD,DVT,Coronary stent placements, [place] COMPARISON: Chest x-ray 2 months ago TECHNIQUE: Single frontal view of the chest. IMPRESSION: Cardiomediastinal silhouette within normal limits. No overt consolidative or congestive change. No acute osseous abnormality. Signed: Lisa Payton MD Report Verified Date/Time:05/22/2017 06:09:06 Reading Location: [facility] [id number] Ortho Consult Reading Room Procedure Note Interface, External Ris In - 05/22/2017 6:11 AM RAIL ASSEMBLER FINAL REPORT RAD, CHEST, 1 VIEW, NON DEPT INDICATION: blood clots/Pt has h/o CDD,DVT,Coronary stent placements, [place] COMPARISON: Chest x-ray 2 months ago TECHNIQUE: Single frontal view of the chest. IMPRESSION: Cardiomediastinal silhouette within normal limits. No overt consolidative or congestive change. No acute osseous abnormality. Signed: Lisa Payton MD Report Verified Date/Time: 05/22/2017 06:09:06 Reading Location: [facility] [id number] Ortho Consult Reading Room Creatine Kinase (CK), Total and MB (05/07/2017 7:02 AM)Only the most recent of5 resultswithin the time period is included. Component Value Ref Range Total CK 711 (H) 29 - 200 U/L CK-MB 3.5 0.0 - 6.6 ng/mL MB Relative Index 0.5 % Specimen Performing [place] [address] Narrative CK-MB Reference Range: <6.7Normal 6.7-10.0Borderline >10.0 Abnormal Venous doppler legs bilateral (03/31/2017 9:12 PM) Specimen Performing Laboratory [facility] Narrative FINAL REPORT VENOUS DOPPLER LEGS, BILATERAL INDICATION: eval dvt COMPARISON: None TECHNIQUE:Real time samson-scale, color, and spectral Doppler imaging of the bilateral lower extremity venous system. FINDINGS: Thigh: Normal compressibility and color Doppler flow within the common femoral, superficial femoral, and popliteal veins bilaterally. Calf: Normal compressibility is demonstrated within the peroneal and posterior tibial veins bilaterally. Additional findings: None. IMPRESSION: No Doppler or grayscale evidence for deep venous thrombosis bilaterally. Signed: JR Matta Robert MD Report Verified Date/Time:03/31/2017 21:23:15 Reading Location: [address] Reading Room Procedure Note Interface, External Ris In - 03/31/2017 9:25 PM RAIL ASSEMBLER FINAL REPORT VENOUS DOPPLER LEGS, BILATERAL INDICATION: eval dvt COMPARISON: None TECHNIQUE: Real time samson-scale, color, and spectral Doppler imaging of the bilateral lower extremity venous system. FINDINGS: Thigh: Normal compressibility and color Doppler flow within the common femoral, superficial femoral, and popliteal veins bilaterally. Calf: Normal compressibility is demonstrated within the peroneal and posterior tibial veins bilaterally. Additional findings: None. IMPRESSION: No Doppler or grayscale evidence for deep venous thrombosis bilaterally. Signed: JR Matta Robert MD Report Verified Date/Time: 03/31/2017 21:23:15 Reading Location: [address] Reading Room Rapid drug screen, urine (03/31/2017 7:35 PM)Only the most recent of2 resultswithin the time period is included. Component Value Ref Range Barbiturate Screen Negative Negative Benzodiazepine Screen Negative Negative Cocaine (Metab.) Screen Negative Negative Methadone Screen Negative Negative Opiate Screen Positive (A) Negative Cannabinoid Screen Negative Negative Amph/Methamph Screen Negative Negative Phencyclidine Screen Negative Negative Specimen Performing Laboratory Urine - Urine, Voided [facility] [address] [place] [address] Narrative DRUGCUTOFF CONC. Cocaine 300 ng/mL Xqoczjehygq00 ng/mL Rjgihsvitrkkiq486 ng/mL Barbiturate 200 ng/mL Rrjcigccwaedh33 ng/mL Hofekm660 ng/mL Methadone 300 ng/mL Amphetamine/ 1000 ng/mL Methamphetamine This assay provides an unconfirmed qualitative test result for the clinical management of patients in emergency situations. Chain of custody not maintained. Some dusm-uez-[id number] medications, as well as adulterants, may cause inaccurate results. Clinical correlation should be applied. A more comprehensive drug screen or confirmation of a detected drug may be performed upon request. D-dimer (03/31/2017 4:26 PM) Component Value Ref Range D-Dimer, Quant 0.41 <0.50 MG/L FEU Specimen Performing Laboratory Blood - Arm, Left [facility] [address] [place] [address] Narrative Intended Use: The D-Dimer Assay can be used to aid in the diagnosis of Deep Vein Thrombosis (DVT) and Pulmonary Embolism Disease (PED). In patients with low pre-test probability, various studies concerning STA Liatest D-dimer test have reported that with a cutoff value of 0.50 MG/L FEU, the Negative Predictive Value (NPV) regarding the exclusion of thrombosis is within 95-100% range. Urinalysis w/Microscopic (03/30/2017 10:48 PM)Only the most recent of2 resultswithin the time period is included. Component Value Ref Range Color, UA Yellow Clarity, UA Clear Specific [place], UA 1.018 1.001 - 1.035 pH, UA 5.0 5.0 - 8.0 Protein, UA Negative Negative Glucose, UA 50 mg/dL (A) Negative Ketones, UA Negative Negative Bilirubin, UA Negative Negative Blood, UA Negative Negative Nitrite, UA Negative Negative Leukocytes, UA Negative Negative Urobilinogen, UA <1.0 0.2 - 1.0 mg/dL RBC, UA 0 /HPF WBC, UA 1 /HPF Mucus Rare Squam Epithel, UA <1 /HPF Specimen Source Specimen Performing Laboratory Urine [facility] [address] [place] [address] B-type natriuretic peptide (01/19/2017 11:09 PM)Only the most recent of2 resultswithin the time period is included. Component Value Ref Range BNP 26 0 - 100 pg/mL Specimen Performing Laboratory Blood [facility] [place] [address] PT/PTT (01/19/2017 1:39 PM) Component Value Ref Range Protime 14.2 11.8 - 14.4 seconds INR 1.1 (L) 1.2 - 1.5 PTT 24.3 23.2 - 36.1 seconds Specimen Performing Laboratory Blood [facility] [address] [place] [address] Narrative RECOMMENDED COUMADIN/WARFARIN INR THERAPY RANGES STANDARD DOSE: 2.0 - 3.0 Includes: PROPHYLAXIS for venous thrombosis, systemic embolization; TREATMENT for venous thrombosis and/or pulmonary embolus. HIGH RISK: Target INR is 2.5-3.5 for patients with mechanical heart valves. Venous doppler arms bilateral (01/16/2017 2:31 PM) Specimen Performing Laboratory [employer] Narrative FINAL REPORT HISTORY : Upper extremity swelling COMPARISON : None. Findings: Ultrasound examination of the upper extremity veins bilaterally was performed.There are no prior films available for comparison. Grayscale, color and spectral Doppler scans demonstrate a normal appearance of the veins with color flow identified in the right and left internal jugular, subclavian, axillary, brachial, and cephalic veins. There is localized, chronic appearing, partial thrombus of the left basilic vein at the cubital fossa. The right basilic vein is patent and unremarkable. There are no findings to suggest acute deep venous thrombosis. IMPRESSION : No evidence of bilateral upper extremity deep venous thrombosis. Chronic appearing localized superficial thrombosis of the left basilic vein at the antecubital fossa. Signed: Jose Angel Velásquez MD Report Verified Date/Time:01/16/2017 14:55:52 Reading Location: [facility] Radiology Reading Room Procedure Note Interface, External Ris In - 01/16/2017 2:57 PM CDT FINAL REPORT HISTORY : Upper extremity swelling COMPARISON : None. Findings: Ultrasound examination of the upper extremity veins bilaterally was performed. There are no prior films available for comparison. Grayscale, color and spectral Doppler scans demonstrate a normal appearance of the veins with color flow identified in the right and left internal jugular, subclavian, axillary, brachial, and cephalic veins. There is localized, chronic appearing, partial thrombus of the left basilic vein at the cubital fossa. The right basilic vein is patent and unremarkable. There are no findings to suggest acute deep venous thrombosis. IMPRESSION : No evidence of bilateral upper extremity deep venous thrombosis. Chronic appearing localized superficial thrombosis of the left basilic vein at the antecubital fossa. Signed: Jose Angel Velásquez MD Report Verified Date/Time: 01/16/2017 14:55:52 Reading Location: [facility] Radiology Reading Room Blood culture (01/11/2017 6:14 PM) Component Value Ref Range Result No growth in 5 days Specimen Performing Laboratory Blood - Arm, Right [facility] [address] [place] [address] Urine culture (01/11/2017 6:01 PM) Component Value Ref Range Result No growth Specimen Performing Laboratory Urine - Urine, Clean Catch [facility] [address] [place] [address] CT maxillofacial with IV contrast (01/11/2017 5:43 PM) Specimen Performing Laboratory [facility] Narrative FINAL REPORT CT face with contrast 01/11/2017 5:51 PM CLINICAL HISTORY: Fever of unknown origin COMPARISON: None available TECHNIQUE: Axial contrast-enhanced CT images of the face were obtained. Axially acquired data were reformatted in coronal and sagittal planes for further analysis. This examination was performed according to our departmental dose optimization program, which includes automated exposure control, adjustment of the mA and/or kV according to patient size, and/or use of iterated reconstruction technique. FINDINGS: There is subcutaneous fat stranding in the perimandibular soft tissue. There is no abscess. The visualized brain, orbits, paranasal sinuses, tympanomastoid cavities, salivary glands, aerodigestive tract, remaining soft tissue, and skeleton are unremarkable. The patient is edentulous. IMPRESSION: Perimandibular subcutaneous fat stranding, which could reflect cellulitis. Signed: Wood Duncan MD Report Verified Date/Time:01/11/2017 17:57:54 Reading Location: [facility] [place], operated [facility] Reading Room Procedure Note Interface, External Ris In - 01/11/2017 6:00 PM CDT FINAL REPORT CT face with contrast 01/11/2017 5:51 PM CLINICAL HISTORY: Fever of unknown origin COMPARISON: None available TECHNIQUE: Axial contrast-enhanced CT images of the face were obtained. Axially acquired data were reformatted in coronal and sagittal planes for further analysis. This examination was performed according to our departmental dose optimization program, which includes automated exposure control, adjustment of the mA and/or kV according to patient size, and/or use of iterated reconstruction technique. FINDINGS: There is subcutaneous fat stranding in the perimandibular soft tissue. There is no abscess. The visualized brain, orbits, paranasal sinuses, tympanomastoid cavities, salivary glands, aerodigestive tract, remaining soft tissue, and skeleton are unremarkable. The patient is edentulous. IMPRESSION: Perimandibular subcutaneous fat stranding, which could reflect cellulitis. Signed: Wood Duncan MD Report Verified Date/Time: 01/11/2017 17:57:54 Reading Location: [facility] Radiology Reading Room brain without IV contrast (01/11/2017 12:58 PM) Specimen Performing Laboratory RIS Narrative FINAL REPORT CT head without contrast 01/11/2017 1:14 PM CLINICAL HISTORY: Head trauma, headache TECHNIQUE: Axial noncontrast CT images through the head were obtained. This examination was performed according to our departmental dose optimization program, which includes automated exposure control, adjustment of the mA and/or kV according to patient size, and/or use of iterated reconstruction technique. COMPARISON: 11/11/2016 FINDINGS: There is no hemorrhage, extra-axial collection, mass, hydrocephalus, or midline shift. There is no CT evidence for cerebral infarction. The visualized paranasal sinuses and mastoid air cells are well aerated. The skull is intact. IMPRESSION: No intracranial hemorrhage or mass effect. If concern for acute pathology persists, further evaluation with MRI is recommended. Signed: Wood Duncan MD Report Verified Date/Time:01/11/2017 13:16:29 Reading Location: [facility] [place], [facility] Reading Room Procedure Note Interface, External Ris In - 01/11/2017 1:18 PM CDT FINAL REPORT CT head without contrast 01/11/2017 1:14 PM CLINICAL HISTORY: Head trauma, headache TECHNIQUE: Axial noncontrast CT images through the head were obtained. This examination was performed according to our departmental dose optimization program, which includes automated exposure control, adjustment of the mA and/or kV according to patient size, and/or use of iterated reconstruction technique. COMPARISON: 11/11/2016 FINDINGS: There is no hemorrhage, extra-axial collection, mass, hydrocephalus, or midline shift. There is no CT evidence for cerebral infarction. The visualized paranasal sinuses and mastoid air cells are well aerated. The skull is intact. IMPRESSION: No intracranial hemorrhage or mass effect. If concern for acute pathology persists, further evaluation with MRI is recommended. Signed: Wood Duncan MD Report Verified Date/Time: 01/11/2017 13:16:29 Reading Location: [facility] [place] Reading Room C-Reactive Protein (01/11/2017 6:36 AM) Component Value Ref Range CRP 4.82 (H) 0.00 - 0.50 mg/dL Specimen Performing Laboratory Blood [facility] [address] [place] [address] Sedimentation rate (01/11/2017 6:36 AM) Component Value Ref Range Sed Rate 17 0 - 20 mm/HR Specimen Performing Laboratory Blood [facility] [address] [place] [address] XR wrist complete 3 views min left (12/29/2016 9:59 AM) Specimen Performing Laboratory [facility] Narrative FINAL REPORT Exam: 1. Left hand, three images. 2. Left wrist, three images. 3. Left forearm, four images. HISTORY: Fall. Hand pain. COMPARISON: Forearm series, 11/14/2016. IMPRESSION: No definite acute fracture or dislocation is appreciated. There is remote posttraumatic and postoperative surgical change of the distal forearm and proximal wrist with radiocarpal fusion. There is diffuse soft tissue edema. Signed: Matt Berry MD Report Verified Date/Time:12/29/2016 10:26:20 Reading Location: [address] Ortho Consult Reading Room Procedure Note Interface, External Ris In - 12/29/2016 10:28 AM CDT FINAL REPORT Exam: 1. Left hand, three images. 2. Left wrist, three images. 3. Left forearm, four images. HISTORY: Fall. Hand pain. COMPARISON: Forearm series, 11/14/2016. IMPRESSION: No definite acute fracture or dislocation is appreciated. There is remote posttraumatic and postoperative surgical change of the distal forearm and proximal wrist with radiocarpal fusion. There is diffuse soft tissue edema. Signed: Matt Berry MD Report Verified Date/Time: 12/29/2016 10:26:20 Reading Location: [address] Ortho Consult Reading Room hand 3 views left (12/29/2016 9:59 AM) Specimen Performing Laboratory [facility] Narrative FINAL REPORT Exam: 1. Left hand, three images. 2. Left wrist, three images. 3. Left forearm, four images. HISTORY: Fall. Hand pain. COMPARISON: Forearm series, 11/14/2016. IMPRESSION: No definite acute fracture or dislocation is appreciated. There is remote posttraumatic and postoperative surgical change of the distal forearm and proximal wrist with radiocarpal fusion. There is diffuse soft tissue edema. Signed: Matt Berry MD Report Verified Date/Time:12/29/2016 10:26:20 Reading Location: [address] Ortho Consult Reading Room Procedure Note Interface, External Ris In - 12/29/2016 10:28 AM CDT FINAL REPORT Exam: 1. Left hand, three images. 2. Left wrist, three images. 3. Left forearm, four images. HISTORY: Fall. Hand pain. COMPARISON: Forearm series, 11/14/2016. IMPRESSION: No definite acute fracture or dislocation is appreciated. There is remote posttraumatic and postoperative surgical change of the distal forearm and proximal wrist with radiocarpal fusion. There is diffuse soft tissue edema. Signed: Matt Berry MD Report Verified Date/Time: 12/29/2016 10:26:20 Reading Location: [address] Ortho Consult Reading Room forearm 2 views left (12/29/2016 9:59 AM) Specimen Performing Laboratory [facility] Narrative FINAL REPORT Exam: 1. Left hand, three images. 2. Left wrist, three images. 3. Left forearm, four images. HISTORY: Fall. Hand pain. COMPARISON: Forearm series, 11/14/2016. IMPRESSION: No definite acute fracture or dislocation is appreciated. There is remote posttraumatic and postoperative surgical change of the distal forearm and proximal wrist with radiocarpal fusion. There is diffuse soft tissue edema. Signed: Matt Berry MD Report Verified Date/Time:12/29/2016 10:26:20 Reading Location: [address] Ortho Consult Reading Room Procedure Note Interface, External Ris In - 12/29/2016 10:28 AM CDT FINAL REPORT Exam: 1. Left hand, three images. 2. Left wrist, three images. 3. Left forearm, four images. HISTORY: Fall. Hand pain. COMPARISON: Forearm series, 11/14/2016. IMPRESSION: No definite acute fracture or dislocation is appreciated. There is remote posttraumatic and postoperative surgical change of the distal forearm and proximal wrist with radiocarpal fusion. There is diffuse soft tissue edema. Signed: Matt Berry MD Report Verified Date/Time: 12/29/2016 10:26:20 Reading Location: [facility] Ortho Consult Reading Room after 12/22/2016
--- NOTE | 2017-12-23 14:13 | EDPHYS ---
Physician Documentation [facility] Name: Leonel Farnsworth Age: 57 yrs Sex: Male : 1960 Arrival Date: 12/23/2017 Time: 13:50 Bed 5 Private MD: ED Physician Amandeep Murray HPI: 12/23 14:07 This 57 yrs old Male presents to ER via EMS with complaints of Chest Pain > josue 28 y/o. 14:07 The patient or guardian reports chest pain that is located primarily in the substernal josue area. Onset: 2 day(s) ago. The pain does not radiate. Associated signs and symptoms: The patient has no apparent associated signs or symptoms. The chest pain is described as a pressure. Severity of pain: At its worst the pain was mild in the emergency department the pain is unchanged. The patient has experienced similar episodes in the past, several times. Historical: - Allergies: 13:52 Nitroglycerin; sg 13:52 Advil; sg 13:52 Aleve; sg 13:52 Aspirin; sg 13:52 Ibuprofen; sg 13:52 Motrin; sg 13:52 Tylenol; sg - Home Meds: 13:52 Plavix 75 mg Oral tab once daily [Active]; sg - PMHx: 13:52 CAD; CHF; Hypertension; Myocardial infarction; sg - PSHx: 13:52 Heart stents; sg - Immunization history:: Adult Immunizations up to date. - Social history:: Smoking status: Patient uses tobacco products, denies chronic smoking, but will smoke occasionally. - Ebola Screening: : Patient negative for fever greater than or equal to 101.5 degrees Fahrenheit, and additional compatible Ebola Virus Disease symptoms Patient denies exposure to infectious person Patient denies travel to an Ebola-affected area in the 21 days before illness onset No symptoms or risks identified at this time. - Family history:: not pertinent. ROS: 14:07 Constitutional: Negative for fever, chills, and weight loss, Eyes: Negative for injury, josue pain, redness, and discharge, ENT: Negative for injury, pain, and discharge, Neck: Negative for injury, pain, and swelling, Respiratory: Negative for shortness of breath, cough, wheezing, and pleuritic chest pain, Abdomen/GI: Negative for abdominal pain, nausea, vomiting, diarrhea, and constipation, Back: Negative for injury and pain, : Negative for injury, bleeding, discharge, and swelling, MS/Extremity: Negative for injury and deformity, Skin: Negative for injury, rash, and discoloration, Neuro: Negative for headache, weakness, numbness, tingling, and seizure, Psych: Negative for depression, anxiety, suicide ideation, homicidal ideation, and hallucinations, Allergy/Immunology: Negative for hives, rash, and allergies, Endocrine: Negative for neck swelling, polydipsia, polyuria, polyphagia, and marked weight changes, Hematologic/Lymphatic: Negative for swollen nodes, abnormal bleeding, and unusual bruising. 14:07 Cardiovascular: Positive for chest pain, of the chest. Exam: 14:07 Constitutional: This is a well developed, well nourished patient who is awake, alert, josue and in no acute distress. Head/Face: Normocephalic, atraumatic. Eyes: Pupils equal round and reactive to light, extra-ocular motions intact. Lids and lashes normal. Conjunctiva and sclera are non-icteric and not injected. Cornea within normal limits. Periorbital areas with no swelling, redness, or edema. ENT: Nares patent. No nasal discharge, no septal abnormalities noted. Tympanic membranes are normal and external auditory canals are clear. Oropharynx with no redness, swelling, or masses, exudates, or evidence of obstruction, uvula midline. Mucous membranes moist. Neck: Trachea midline, no thyromegaly or masses palpated, and no cervical lymphadenopathy. Supple, full range of motion without nuchal rigidity, or vertebral point tenderness. No Meningismus. Chest/axilla: Normal chest wall appearance and motion. Nontender with no deformity. No lesions are appreciated. Cardiovascular: Regular rate and rhythm with a normal S1 and S2. No gallops, murmurs, or rubs. Normal PMI, no JVD. No pulse deficits. Respiratory: Lungs have equal breath sounds bilaterally, clear to auscultation and percussion. No rales, rhonchi or wheezes noted. No increased work of breathing, no retractions or nasal flaring. Abdomen/GI: Soft, non-tender, with normal bowel sounds. No distension or tympany. No guarding or rebound. No evidence of tenderness throughout. Back: No spinal tenderness. No costovertebral tenderness. Full range of motion. Male : Normal genitalia with no discharge or lesions. Skin: Warm, dry with normal turgor. Normal color with no rashes, no lesions, and no evidence of cellulitis. MS/ Extremity: Pulses equal, no cyanosis. Neurovascular intact. Full, normal range of motion. Neuro: Awake and alert, GCS 15, oriented to person, place, time, and situation. Cranial nerves II-XII grossly intact. Motor strength 5/5 in all extremities. Sensory grossly intact. Cerebellar exam normal. Normal gait. Psych: Awake, alert, with orientation to person, place and time. Behavior, mood, and affect are within normal limits. 14:10 Musculoskeletal/extremity: DVT Exam: No signs of deep vein thrombosis. no pain, no josue tenderness, negative Homans' sign noted on exam, no appreciated bluish discoloration, no erythema, no increased warmth, swelling, that is mild, of the right leg, of the left leg. Vital Signs: 13:51 BP 107 / 53; Pulse 78; Resp 19 S; Temp 98.5; Pulse Ox 97% on R/A; Weight 130.63 kg (R); sg Pain 10/10; 14:42 BP 110 / 69; Pulse 78 MON; Resp 17; Pulse Ox 99% on R/A; sg 16:45 BP 112 / 70; Pulse 77 MON; Resp 18 S; Temp 98.5; Pulse Ox 99% on R/A; Pain 4/10; sg 16:45 Sinus Rhythm MDM: 13:52 Patient medically screened. [facility] 14:10 Data reviewed: vital signs, nurses notes, lab test result(s), EKG, radiologic studies, [facility] plain films. 12/23 14:06 Order name: Basic Metabolic Panel; Complete Time: 17: [facility] 12/23 14:06 Order name: CBC with Diff; Complete Time: 17: [facility] 12/23 14:06 Order name: Ckmb; Complete Time: 17: [facility] 12/23 14:06 Order name: CPK; Complete Time: 17: [facility] 12/23 14:06 Order name: LFT's; Complete Time: 17: [facility] 12/23 14:06 Order name: Magnesium; Complete Time: 17: [facility] 12/23 14:06 Order name: NT PRO-BNP; Complete Time: 17: [facility] 12/23 14:06 Order name: PT-INR; Complete Time: 17:06 [facility] 12/23 14:06 Order name: Ptt, Activated; Complete Time: 17:06 [facility] 12/23 14:06 Order name: Troponin (emerg Dept Use Only); Complete Time: 17:06 [facility] 12/23 14:06 Order name: XRAY Chest (1 view) [facility] 12/23 14:06 Order name: Lipase; Complete Time: 17:06 [facility] 12/23 14:06 Order name: Urine Culture [facility] 12/23 15:03 Order name: RAD; Complete Time: 17:06 [facility] 12/23 14:06 Order name: EKG; Complete Time: 14:07 [facility] 12/23 14:06 Order name: Cardiac monitoring; Complete Time: 14:50 [facility] 12/23 14:06 Order name: EKG - Nurse/Tech; Complete Time: 14:50 [facility] 12/23 14:06 Order name: O2 Per Protocol; Complete Time: 14:50 [facility] 12/23 14:06 Order name: O2 Sat Monitoring; Complete Time: 14:50 [facility] 12/23 14:17 Order name: CONS Physician Consult [facility] 12/23 15:51 Order name: Diet Regular; Complete Time: 15:52 iw Administered Medications: 15:40 Drug: NS 0.9% 1000 ml Route: IV; Rate: 125 ml/hr; Site: right antecubital; sg 17:18 Follow up: Response: No adverse reaction; IV Status: Infusion continued upon admission sg 15:40 Drug: Pepcid 20 mg Route: IVP; Site: right antecubital; sg 16:32 Follow up: Response: No adverse reaction; Nausea is decreased sg 15:40 Drug: morphine 4 mg Route: IVP; Site: right antecubital; sg 16:32 Follow up: Response: No adverse reaction; Pain is decreased sg 15:40 Drug: Zofran 4 mg Route: IVP; Site: right antecubital; sg 16:00 Follow up: Response: No adverse reaction; Nausea is decreased sg 16:29 Not Given (Hemodynamic Parameters): Lopressor (metoprolol TARTRATE) 50 mg PO once sg 17:10 Not Given (Patient Refused): Lovenox 1 mg/kg Sub-Q once sg Disposition: 12/23/17 14:12 Hospitalization ordered by Aidee An for Observation. Preliminary diagnosis are Other chest pain, Obesity, unspecified. - Bed requested for Telemetry/MedSurg (observation). - Status is Observation. sg - Condition is Stable. - Problem is new. - Symptoms have improved. UTI on Admission? No Signatures: Dispatcher [employer] EDMS Jaymie Grajeda Juvenal Juan, DANUTA RN Amandeep Vang MD MD cha Corrections: (The following items were deleted from the chart) 16:41 14:12 Hospitalization Ordered by Aidee An MD for Observation. Preliminary diagnosis bd is Other chest pain; Obesity, unspecified. Bed requested for Telemetry/MedSurg (observation). Status is Observation. Condition is Stable. Problem is new. Symptoms have improved. UTI on Admission? No. josue 17:19 16:41 12/23/2017 14:12 Hospitalization Ordered by Aidee An MD for Observation. sg Preliminary diagnosis is Other chest pain; Obesity, unspecified. Bed requested for Telemetry/MedSurg (observation). Status is Observation. Condition is Stable. Problem is new. Symptoms have improved. UTI on Admission? No. bd
--- NOTE | 2017-12-23 14:13 | ER ---
Nurse's Notes [facility] Name: Leonel Farnsworth Age: 57 yrs Sex: Male : 1960 Arrival Date: 12/23/2017 Time: 13:50 Bed 5 Private MD: Diagnosis: Other chest pain;Obesity, unspecified Presentation: 12/23 13:52 Presenting complaint: EMS states: was doing some work today at a job site in [place], sg developed CP and SOB, called for EMS and was picked up on scene from a [employer], pt reports midsternal CP, HX of [place] with stentsx2, first stent for blockage placed about 9 months ago. Transition of care: patient was not received from another setting of care. Onset of symptoms was December 23, 2017. Risk Assessment: Do you want to hurt yourself or someone else? Patient reports no desire to harm self or others. Initial Sepsis Screen: Does the patient meet any 2 criteria? No. Patient's initial sepsis screen is negative. Does the patient have a suspected source of infection? No. Patient's initial sepsis screen is negative. Care prior to arrival: None. 13:52 Method Of Arrival: EMS: [facility] sg 13:52 Acuity: MICHAELLE 3 sg Historical: - Allergies: 13:52 Nitroglycerin; sg 13:52 Advil; sg 13:52 Aleve; sg 13:52 Aspirin; sg 13:52 Ibuprofen; sg 13:52 Motrin; sg 13:52 Tylenol; sg - Home Meds: 13:52 Plavix 75 mg Oral tab once daily [Active]; sg - PMHx: 13:52 CAD; CHF; Hypertension; Myocardial infarction; sg - PSHx: 13:52 Heart stents; sg - Immunization history:: Adult Immunizations up to date. - Social history:: Smoking status: Patient uses tobacco products, denies chronic smoking, but will smoke occasionally. - Ebola Screening: : Patient negative for fever greater than or equal to 101.5 degrees Fahrenheit, and additional compatible Ebola Virus Disease symptoms Patient denies exposure to infectious person Patient denies travel to an Ebola-affected area in the 21 days before illness onset No symptoms or risks identified at this time. - Family history:: not pertinent. Screenin:55 Abuse screen: Denies threats or abuse. Denies injuries from another. Nutritional sg screening: No deficits noted. Tuberculosis screening: No symptoms or risk factors identified. Never had TB. Fall Risk None identified. Assessment: 14:00 General: Appears in no apparent distress. comfortable, unkempt, well developed, well sg nourished, Behavior is calm, cooperative, appropriate for age. Pain: Complains of pain in chest Quality of pain is described as aching, pressure, tender. Neuro: Level of Consciousness is awake, alert, obeys commands, Oriented to person, place, time, Automat Watcher are equal bilaterally Moves all extremities. Full function Gait is steady, Speech is normal, Facial symmetry appears normal. Cardiovascular: Heart tones S1 S2 present Capillary refill is brisk in bilateral fingers Patient's skin is warm and dry. Chest pain is described as vague, is located in anterior chest wall substernal area. Respiratory: Airway is patent Respiratory effort is even, unlabored. GI: No signs and/or symptoms were reported involving the gastrointestinal system. : No signs and/or symptoms were reported regarding the genitourinary system. EENT: No signs and/or symptoms were reported regarding the EENT system. Derm: Skin is pink, warm \\T\\ dry. Musculoskeletal: No signs and/or symptoms reported regarding the musculoskeletal system. 14:32 Reassessment: Patient appears in no apparent distress at this time. Patient and/or sg family updated on plan of care and expected duration. Pain level reassessed. Patient is alert, oriented x 3, equal unlabored respirations, skin warm/dry/pink. pt refusing to allow ER staff to look at upper extremities for IV attempt without using the Ultrasound machine, notified, Minnie TIPTONcook seafood Nurse notified. 14:37 Reassessment: Xray at bedside at this time. sg 14:37 Reassessment: reports most recent cardiac stent place at " [facility], in [place]. two weeks ago, but they done changed the name of that hospital already, i dont know what its called.". 14:41 Reassessment: at bedside evaluating pt at this time. sg 16:19 Reassessment: Patient appears in no apparent distress at this time. Patient and/or sg family updated on plan of care and expected duration. Pain level reassessed. Patient is alert, oriented x 3, equal unlabored respirations, skin warm/dry/pink. pt given PO orange juice at this time per request, pt tolerated juice well, awaiting arrival of diet tray. 16:52 Reassessment: Patient appears in no apparent distress at this time. Patient and/or sg family updated on plan of care and expected duration. Pain level reassessed. Patient is alert, oriented x 3, equal unlabored respirations, skin warm/dry/pink. attempt to call report, Huma TIPTON instructed me to please wait as the room has not yet been cleaned, awaiting the room to be cleaned at this time Patient states symptoms have not improved. Vital Signs: 13:51 BP 107 / 53; Pulse 78; Resp 19 S; Temp 98.5; Pulse Ox 97% on R/A; Weight 130.63 kg (R); sg Pain 10/10; 14:42 BP 110 / 69; Pulse 78 MON; Resp 17; Pulse Ox 99% on R/A; sg 16:45 BP 112 / 70; Pulse 77 MON; Resp 18 S; Temp 98.5; Pulse Ox 99% on R/A; Pain 4/10; sg 16:45 Sinus Rhythm sg ED Course: 13:40 Patient maintains SpO2 saturation greater than 95% on room air. sg 13:50 Patient arrived in ED. sg 13:50 Arm band placed on. sg 13:52 Amandeep Murray MD is Attending Physician. josue 13:54 Triage completed. sg 13:55 Juvenal Rodrigues, RN is Primary Nurse. sg 13:55 EKG done, by instrument room technician. reviewed by Amandeep Murray MD. sm3 14:00 Patient has correct armband on for positive identification. Placed in gown. Bed in low sg position. Side rails up X2. claims director on. Pulse ox on. NIBP on. door remains open per pt request, curtain remains open per pt reques Warm blanket given. Pillow given. Verbal reassurance given. Head of bed elevated. 14:11 Aidee An MD is Hospitalizing Provider. josue 14:39 X-ray completed. Portable x-ray completed in exam room. Patient tolerated procedure jb2 well. 16:00 Inserted saline lock: 24 gauge in right antecubital area, using aseptic technique. sg Blood collected. IV inserted by Minnie TIPTONcook seafood. 16:27 request for slab inspector report was sent to [facility], per dr Rebollar bd request. 17:00 No provider procedures requiring assistance completed. Patient admitted, IV remains in sg place. intact, No redness/swelling at site. Administered Medications: 15:40 Drug: NS 0.9% 1000 ml Route: IV; Rate: 125 ml/hr; Site: right antecubital; sg 17:18 Follow up: Response: No adverse reaction; IV Status: Infusion continued upon admission sg 15:40 Drug: Pepcid 20 mg Route: IVP; Site: right antecubital; sg 16:32 Follow up: Response: No adverse reaction; Nausea is decreased sg 15:40 Drug: morphine 4 mg Route: IVP; Site: right antecubital; sg 16:32 Follow up: Response: No adverse reaction; Pain is decreased sg 15:40 Drug: Zofran 4 mg Route: IVP; Site: right antecubital; sg 16:00 Follow up: Response: No adverse reaction; Nausea is decreased sg 16:29 Not Given (Hemodynamic Parameters): Lopressor (metoprolol TARTRATE) 50 mg PO once sg 17:10 Not Given (Patient Refused): Lovenox 1 mg/kg Sub-Q once sg Outcome: 14:12 Decision to Hospitalize by Provider. josue 17:18 Admitted to Tele accompanied by tech, via wheelchair, room 408, with chart, Report sg called to Destin TIPTON 17:18 Condition: stable 17:18 Instructed on the need for admit, safety practices, Demonstrated understanding of instructions. 17:19 Patient left the ED. sg Signatures: Jaymie Grajeda Steven, RN RN Amandeep Vang MD MD cha Buechter, Jesse jb2 Montes, Shakira 3
[2017-12-23] MEDS ORDERED: METOPROLOL TAR 50 MG TAB ONE (14:24)
[2017-12-23] MEDS ORDERED: MORPHINE 4 MG/ML SYR ONE (14:24)
[2017-12-23] MEDS ORDERED: ONDANSETRON 4 MG/2 ML VIAL ONE (14:24)
[2017-12-23] MEDS ORDERED: NA CHLORIDE 0.9% 1,000 ML ONE (14:25)
[2017-12-23] MEDS ORDERED: FAMOTIDINE 20 MG/2 ML VIAL IV ONE (14:25)
[2017-12-23] MEDS ORDERED: ENOXAPARIN 100 MG/ML SYR SQ ONE (14:25)
[2017-12-23] MEDS ORDERED: ACETAMINOPHEN 500 MG TAB PO PRN (14:57)
--- NOTE | 2017-12-23 15:01 | RAD REPORT ---
EXAM DESCRIPTION: RAD - Chest Single View - 12/23/2017 2:42 pm CLINICAL HISTORY: CHEST PAIN Chest pain. COMPARISON: Chest Single View dated 10/22/2016; Chest Single View dated 06/06/2016; Chest Single View dated 01/07/2016; CHEST SINGLE VIEW dated 08/01/2015 FINDINGS: Portable technique limits examination quality. The lungs are grossly clear. The heart is normal in size. No displaced fractures. IMPRESSION: No acute intrathoracic process suspected.
--- NOTE | 2017-12-23 15:43 | EKG ---
Test Date: 2017-12-23 Test Time: 13:47:52 Pumper Helper: ARLEY MEASUREMENT RESULTS: Intervals: Rate: 94 NM: 142 QRSD: 86 QT: 358 QTc: 447 Paragon: P: 18 NM: 142 QRS: -14 T: 16 INTERPRETIVE STATEMENTS: Normal sinus rhythm Normal ECG Compared to ECG 10/22/2016 12:18:34 no significant change from previous ECG Electronically Signed On 12-23-17 15:42:46 CDT by Pablo Rebollar
[2017-12-23 16:04] LABS: Absolute Lymphocytes (CBC) 1.1 K/uL (0.7-4.9); Absolute Monocytes 0.6 K/uL (0.1-1.3); Absolute Neutrophil 6.6 K/uL (1.8-8.0); Basophils % 0.3 % (0-1.3); Eosinophils % 5.3 % (0-4.4); Hematocrit 33.5 % (39.6-49.0); Lymphocytes % 12.3 % (15.3-44.8); MCH 25.6 pg (27.0-35.0); MCV 79.3 fL (80-100); MPV 7.3 fL (7.6-11.3); Monocytes % 7.1 % (3.3-12.3); RBC Red Blood Cell Count 4.23 M/uL (4.33-5.43)
[2017-12-23 16:21] LABS: Protime INR 1.09
[2017-12-23 16:22] LABS: ALT/SGPT 19 U/L (12-78); AST/SGOT 19 U/L (15-37); Albumin 3.4 g/dL (3.4-5.0); Alkaline Phosphatase 92 U/L (45-117); BUN Blood Urea Nitrogen 16 mg/dL (7-18); Bicarbonate 25 mmol/L (21-32); Bilirubin Direct < 0.1 mg/dL (0-0.2); Bilirubin Total 0.4 mg/dL (0.2-1.0); CKMB Creatine Kinase MB 1.4 ng/mL (0.3-3.6); Creatine Phosphokinase 210 U/L (39-308); Glucose Level 104 mg/dL (74-106); Lipase 97 U/L (73-393); Magnesium 1.9 mg/dL (1.8-2.4); NT PRO-BNP 12 pg/mL (<125); Potassium 4.3 mmol/L (3.5-5.1); Protein, Total 7.8 g/dL (6.4-8.2); Sodium Level 140 mmol/L (136-145)
[2017-12-23 17:47] VITALS: BMI 47.9
[2017-12-23] MEDS: MORPHINE 4 MG/ML SYR IV PRN ×2 (18:31→22:34)
[2017-12-23] MEDS: ENOXAPARIN 40 MG/0.4 ML SQ SCH (18:32)
[2017-12-23] MEDS: METOPROLOL TAR 25 MG TAB PO SCH (22:32)
[2017-12-23] MEDS: ATORVASTATIN 40 MG TAB PO SCH (22:33)
--- NOTE | 2017-12-23 22:36 | CON ---
History Of Present Illness: Mr. Farnsworth is 57, came to the hospital with chest pain. The pain has be en constant for a few hours. There were no EKG changes. I do not have any laboratory tests to back it. His EKG is completely normal. He has had normal noninvasive tests here. Two weeks ago, he was in [facility] in [place], had a cardiac cath done. He apparently tried both r adial approaches, both failed; they tried both femoral approaches, both failed; and then they attempt ed a right brachial approach and apparently a cardiac cath was done, may be a stent. The patient ins ists a stent was done. He has felt well up until today. He reports drug intolerance to aspirin, sade taminophen, ibuprofen, naproxen, nitroglycerin, and penicillins. We attempted to get some records fr om the hospital in [place], where he had his procedure done, to see what they actually learned, a nd try and get a cardiac cath before. Home meds have been Plavix as the only active medicine. Physical Examination: General: The patient has an unusual affect. I am suspicious there is an underlying psychiatric diso rder, not willing to venture a guess as to what it is. He is somewhat agitated, keeps insisting that he needs to get his cardiac ultrasound done quickly because he is in pain. He is quite obese, alert , oriented, irritable, angry. Lungs: Clear. Heart Exam: Within normal limits. Extremities: Reveal palpable distal pulses. No cyanosis, clubbing, or edema. Labs are pending. At this point, I think I would like to not follow an aggressive course, had a stro ng suspicion that this is drug-seeking behavior and there is not really much wrong with his heart. W e will try and get a report from [place], monitor his enzymes and EKGs, and try and treat his pain with narcotics. Hopefully, not using actual narcotics, nonsteroidal anti-inflammatory drugs, analges ics. Thank you very much for your kind referral of Mr. Farnsworth. I will follow him with you. JALEN/JAMES Voice ID: [id number] Report ID: [id number]
--- NOTE | 2017-12-24 02:15 | HP ---
Date of Admission: 12/23/2017 Consultants: Dr. Rebollar with Cardiology. Primary Care Physician: Out of town. Chief Complaint: Chest pain. History Of Present Illness: The patient is a 57-year-old male with past medical history of coronary artery disease, status post recent stent in [facility] in [place] 2 weeks ago, also con gestive heart failure, hypertension, obesity, previous history of bipolar disorder, for which the pat ient is not taking medications, schizophrenia, as well as diabetes which is listed in his previous az dical record. The patient states that he was at work and had sudden onset of retrosternal left-sided chest pain which was constant, moderate, progressively worsening, associated with some nausea but no vomiting. No shortness of breath. No diaphoresis or palpitations. The patient's pain started when he was working. He patient states it did not improve with the rest. The patient therefore came int o the ER for further evaluation of pain. In the ER, his vital signs were stable. He was afebrile. His EKG did not show any acute changes. The patient was then referred for admission for chest pain. When seen in the ER, he was awake, alert, oriented x3, some mild distress, complaining of chest pain . The patient is allergic to aspirin and nitroglycerin. Past Medical History: Hypertension; apparent history of diabetes, last hemoglobin A1c was 6.5% in 16; congestive heart failure; coronary artery disease; bipolar disorder; apparent history of schizoph janes, has been to inpatient psych facility approximately 6-7 years ago. Surgical History: Cardiac stent x2 in July of 2015 according to previous records. The patient stat es he had 2 stents placed 2 weeks ago in [facility] in [place], laminectomy in 1995. Allergies: TO TYLENOL, CAUSES ANAPHYLAXIS; ASPIRIN, CAUSES RASH; IBUPROFEN; NAPROXEN; NITROGLYCERIN; AND PENICILLIN. Medications: List reviewed. Family History: Father had [place], at age of 72. Social History: The patient denies any alcohol use, tobacco use, or illicit drug use. He states he works for [email or web address], doing some work in [place]. Unclear whether he moves here or [place]. Accor ding to previous records, he has an appointed [place] [facility] and was living i n a halfway. Review of Systems: An 11-point system reviewed, negative except as per HPI. Physical Examination: Vital Signs: Blood pressure 107/53, pulse 78, respirations 19, temperature 98.5, O2 is 97% on room a ir. General: Awake, alert, oriented x3, some mild distress, appears older than stated age, ill-appearing male, obese. HEENT: Normocephalic, atraumatic. PERRLA. EOMI. Moist mucous membranes. The oropharynx is clear. The patient is edentulous. Neck: Supple. No JVD. Trachea midline. CV: S1, S2. Regular rate and rhythm. Peripheral pulses are present. No murmurs. Respiratory: Clear to auscultation bilaterally. No wheezing. No stridor. No use of accessory musc les. Gastrointestinal: Abdomen is soft, nontender, and nondistended. Positive bowel sounds. No guarding or rigidity. Extremities: No clubbing or cyanosis. Trace pedal edema. No calf tenderness. Neuro: Cranial nerves 2 through 12 intact grossly. No focal neurological deficit. Speech is normal . Strength is 5/5 in bilateral upper and lower extremities. Sensation intact to light touch. Skin: No rashes. Normal skin turgor. Psych: Mood is okay. Affect is flat. Insight and judgment are fair. Laboratory Data: Pending. Imaging: EKG shows normal sinus rhythm, no acute ST-T wave changes. Chest x-ray personally reviewed , shows no acute intrathoracic process suspected. Assessment And Plan: A 57-year-old male with; 1.Unstable angina. The patient recently had cardiac cath done at [facility] with stents placed. We will try to obtain records. The patient states physician's name was Dr. William romero. We will continue on chest pain guidelines. The patient is allergic to aspirin and nitrogly cerin. We will continue with Plavix, beta-lenore, statin, and KEL inhibitor. 2.Coronary artery disease, status post stent, [place] artery, [place] heart without angina. 3.Essential hypertension. Resume home medications as appropriate. The patient states he has not be en on medications for the past couple of weeks. Currently, blood pressure is on the low side. 4.Apparent history of diabetes mellitus type 2, non-insulin requiring. The patient states that he i s not diabetic and we will check hemoglobin A1c. 5.Congestive heart failure. Last known ejection fraction is 63%, diastolic dysfunction. We will ob tain echocardiogram. Continue fluid restriction and sodium restriction, daily weights. 6.Morbid obesity. 7.Apparent history of bipolar disorder. 8.Apparent history of schizophrenia. Plan: Admit the patient to Med-Surg as an inpatient. Followup on the labs. Cardiology consultation . Serial cardiac enzymes and EKGs. /JAMES Voice ID: [id number]
[2017-12-24] MEDS: MORPHINE 4 MG/ML SYR IV PRN (02:28)
[2017-12-24] MEDS ORDERED: QUETIAPINE 25 MG TAB PO ONE (03:51)
[2017-12-24] MEDS ORDERED: LORazepam 2 MG/ML VIAL IV ONE (03:56)
[2017-12-24 06:21] LABS: Absolute Lymphocytes (CBC) 1.4 K/uL (0.7-4.9); Absolute Monocytes 0.8 K/uL (0.1-1.3); Absolute Neutrophil 4.4 K/uL (1.8-8.0); Basophils % 0.9 % (0-1.3); Eosinophils % 12.2 % (0-4.4); Hematocrit 29.9 % (39.6-49.0); Lymphocytes % 18.8 % (15.3-44.8); MCH 25.7 pg (27.0-35.0); MPV 7.2 fL (7.6-11.3); Monocytes % 10.1 % (3.3-12.3); RBC Red Blood Cell Count 3.78 M/uL (4.33-5.43)
[2017-12-24 06:34] LABS: BUN Blood Urea Nitrogen 12 mg/dL (7-18); Bicarbonate 27 mmol/L (21-32); Glucose Level 90 mg/dL (74-106); HDL Cholesterol 35 mg/dL (40-60); LDL Cholesterol, Calculated 68 (<130); Sodium Level 141 mmol/L (136-145)
[2017-12-24] MEDS: CLOPIDOGREL 75 MG TABLET PO SCH (09:00)
[2017-12-24] MEDS: METOPROLOL TAR 25 MG TAB PO SCH ×3 (09:00→21:32)
[2017-12-24] MEDS: LISINOPRIL 10 MG TAB PO SCH (09:00)
[2017-12-24] MEDS: ENOXAPARIN 40 MG/0.4 ML SQ SCH (09:00)
--- NOTE | 2017-12-24 14:53 | ECHO ---
HEIGHT: 5 ft 5 in WEIGHT: 288 lb 0 oz DATE OF STUDY: 12/24/[address]: Aidee An MD 2-DIMENSIONAL: YES M.MODE: YES DOPPLER: YES COLOR FLOW: YES TDS: YES PORTABLE: NO DEFINITY: NO BUBBLE STUDY: NO DIAGNOSIS: CHEST PAIN CARDIAC HISTORY: CATHERIZATION: NO SURGERY: NO PROSTHETIC VALVE: NO PACEMAKER: NO MEASUREMENTS (cm) DIASTOLIC (NORMALS) SYSTOLIC (NORMALS) IVSd 1.1 (0.6-1.2) LA Diam 3.5 (1.9-4.0) LVEF 79% LVIDd 4.9 (3.5-5.7) LVIDs 2.5 (2.0-3.5) %FS 48% LVPWd 1.3 (0.6-1.2) Ao Diam 2.8 (2.0-3.7) 2 DIMENSIONAL ASSESSMENT: RIGHT ATRIUM: NORMAL LEFT ATRIUM: NORMAL RIGHT VENTRICLE: NORMAL LEFT VENTRICLE: NORMAL TRICUSPID VALVE: NORMAL MITRAL VALVE: NORMAL PULMONIC VALVE: NORMAL AORTIC VALVE: NORMAL PERICARDIAL EFFUSION: NONE AORTIC ROOT: NORMAL LEFT VENTRICULAR WALL MOTION: NORMAL DOPPLER/COLOR FLOW: NORMAL COMMENTS: NORMAL LEFT VENTRICULAR EJECTION FRACTION AND SIZE. NO EFFUSION. NO WALL MOTION ABNORMALITY. TECHNOLOGIST: Jaja OQUENDO
[2017-12-24] MEDS ORDERED: HALOPERIDOL LACT 5 MG/ML INJ IM PRN (16:38)
[2017-12-24] MEDS ORDERED: LORazepam 2 MG/ML VIAL IV PRN (18:35)
[2017-12-24] MEDS ORDERED: LORazepam 2 MG/ML VIAL IM PRN (18:39)
[2017-12-24] MEDS ORDERED: LORazepam 2 MG/ML VIAL ONE (18:48)
[2017-12-24] MEDS: QUETIAPINE 100MG TAB PO SCH ×2 (21:00→21:32)
[2017-12-24] MEDS: ATORVASTATIN 40 MG TAB PO SCH ×2 (21:00→21:32)
[2017-12-25] MEDS: METOPROLOL TAR 25 MG TAB PO SCH ×2 (09:00→21:00)
[2017-12-25] MEDS: ENOXAPARIN 40 MG/0.4 ML SQ SCH (09:00)
[2017-12-25] MEDS: CLOPIDOGREL 75 MG TABLET PO SCH (09:00)
[2017-12-25] MEDS: LISINOPRIL 10 MG TAB PO SCH (09:00)
--- NOTE | 2017-12-25 09:25 | P.PN ---
Subjective Date of Service: 12/23/17 Subjective: No new changes Review of Systems 10-point ROS is otherwise unremarkable Physical Examination - Vital Signs Temperature: 98.3 F Blood Pressure: 140/85 Pulse: 76 Respirations: 20 Pulse Ox (%): 97 - Physical Exam General: Alert, In no apparent distress, Oriented x3 Respiratory: Clear to auscultation bilaterally, Normal air movement Cardiovascular: Regular rate/rhythm, Normal S1 S2, No murmurs - Studies Medications List Reviewed: Yes Assessment & Plan - Problems (Diagnosis) (1) Altered mental status Current Visit: Yes Status: Acute (2) Hypertension Onset Date: 12/24/17 Current Visit: Yes Status: Acute (3) Schizophrenia Current Visit: Yes Status: Acute (4) Bipolar disorder Current Visit: Yes Status: Acute - Plan Plan: 1. Anxiolytics as needed 2. Patient needs to get started on antipsychotic and will start with Seroquel 50 mg daily and increase to the 100 daily 3. Outpatient follow with psych Discharge Plan: Home Plan to discharge in: 48 Hours - Advance Directives Does patient have a Living Will: No Does patient have a Durable POA for Healthcare: No
--- NOTE | 2017-12-25 11:06 | CON ---
Date of Consultation: 12/24/[address] An's service on 12/23/2017. I saw the patient on 12/24/2017. Reason For Consultation: Chest pain. History Of Present Illness: Mr. Farnsworth is a 57-year-old male. Has a history of coronary artery dise ase, congestive heart failure, and hypertension; came in with a sharp, stabbing chest pain in the lef t anterior chest radiating to the shoulder without any nausea, vomiting, diaphoresis, PND, orthopnea, pedal edema, palpitation, or syncope. The patient had a negative troponin, a negative CPK. He had an EKG and chest x-ray . Allergies: HE IS ALLERGIC TO NITROGLYCERIN, ALEVE, ASPIRIN, AND TYLENOL. Medications: At home include . Review of Systems: Negative. Social History: Negative. Family History: Positive for heart disease. Physical Examination: Vital signs: Stable, afebrile. HEENT: Negative. Neck: Supple with no bruit. Chest: Clear. Cardiac: Exam revealed a regular rhythm and rate. No murmurs, gallops, or rubs. Abdomen: Benign. Extremities: Revealed no clubbing, cyanosis, or edema. Diagnostic Data: As stated earlier. Hemoglobin was 10.8. Impression And Plan: 1.Atypical chest pain, probably pleuritic. 2.History of coronary artery disease that seems to be stable. 3.Congestive heart failure seems to be stable. 4.Hypertension. 5.Multiple allergies. There is an echocardiogram pending on him. We will see what that shows. He can certainly follow up with us as an outpatient in the next 2 to 4 weeks. An outpatient stress test may be reasonable to t. We will make a decision on whether to discharge or not after the echocardiogram is done and see h ow he feels. GLYNN/JAMES Voice ID: [id number] Report ID: [id number]
[2017-12-25] MEDS ORDERED: LORazepam 2 MG/ML VIAL IV PRN (11:44)
--- NOTE | 2017-12-25 12:00 | DS ---
Date of Discharge: 12/24/2017 Consultants: Dr. Rebollar with Cardiology. Admitting Diagnoses: 1. Chest pain, rule out acute coronary syndrome, stable angina. 2. Coronary artery disease status post stent, [place] artery, [place] heart without angina. 3. Essential hypertension. 4. Apparent history of diabetes mellitus type 2, non-insulin requiring. Recent hemoglobin A1c is 6.2%. 5. Congestive heart failure. Ejection fraction is 79%. 6. Morbid obesity, BMI 47.9. 7. History of bipolar disorder. Hospital Course: The patient is a 57-year-old male, comes in with chest pain. States that he had stents placed at [facility] in [place], [place]. Unable to verify his records. The patient's initial workup was negative. EKG did not show any acute changes. Troponin levels were also negative. ACS was ruled out. The patient seems to be pain seeking. He has allergies to Tylenol, aspirin, ibuprofen, naproxen, and nitro. Asks for a morphine by name. The patient's echocardiogram was done, which was negative, did not show any wall motion abnormality, ejection fraction of 79%. The patient was mainly asleep, not much cooperative with physical exam with the nurses, verbally abusive. The patient was then cleared for discharge and was sent home in a stable condition. Activity: As tolerated. Medications: As per medication reconciliation list. Followup: Follow up with primary care physician in 2-3 days. Follow up with cash management clerk, Dr. Rebollar in 2 weeks. Return to ER for worsening condition. Diet: Heart healthy. Physical Examination: General: Awake, alert, oriented, no acute distress. Morbidly obese male, appears older than stated age. CV: S1, S2. No murmurs. Peripheral pulses present. Respiratory: Moving air well bilaterally. No wheezing. Gastrointestinal: Abdomen is soft, nontender, nondistended. Positive bowel sounds. Extremities: No clubbing, cyanosis, edema. Neurologic: Nonfocal. ADDENDUM: Patient was not discharged yesterday as he became violent, agitated and stating he was going to hurt himself by jumping in front of traffic. SA/MODL Voice ID: [id number] Report ID: [id number] [facility]ARE SYSTEMBlake
--- NOTE | 2017-12-25 12:09 | PN ---
Date of Progress Note: 12/25/2017 Subjective: The patient is seen and examined. Chart reviewed and case discussed with RN and Dr. Bonifacio liz. The patient was discharged yesterday; however, he had a bout of agitation. Code Matt was lexus led. The patient became violent, security had to be called. He was verbally and physically abusive. The patient refused to go home and then also stated that he was going to hurt himself by jumping in front of a car. Police were called and the patient was transferred to the ICU for one-on-one with [place] and has an emergency senior living. The patient otherwise does not have any chest pain. Review of Systems: Negative except as above. Medications: List reviewed. Physical Examination: Vital Signs: Temperature 98.3, heart rate 76, blood pressure 120/85, respirations 20, O2 97% on room air. General: Awake, alert, oriented x3, not in any acute distress. Appears older than stated age, morbi dly obese male. CV: S1, S2. No murmurs. Regular rate and rhythm. Peripheral pulses present. Respiratory: Clear to auscultation bilaterally. No wheezing. Gastrointestinal: Abdomen is soft, nontender, nondistended. Positive bowel sounds. Extremities: No clubbing, cyanosis, edema. Neurologic: Nonfocal. Psych: Mood is dysphoric. Affect is congruent with mood. Insight and judgment are poor. Laboratory Data: Hemoglobin A1c is 6.2%. Assessment And Plan: A 57-year-old male with: 1.Atypical chest pain. Acute coronary syndrome has been ruled out. 2.Coronary artery disease status post stent, [place] artery and [place] heart without angina. 3.Essential hypertension, stable. 4.Congestive heart failure, EF 79%, diastolic dysfunction, currently compensated. 5.Morbid obesity, BMI 47. 6.Bipolar disorder. 7.History of schizophrenia. 8.Acute agitation and personality disorder, not otherwise specified. The patient apparently does samayoa ve a legal guardian and lives in a correction in [place]. The patient has been going from 1 emergenc y room to the other. We are unable to verify records from [facility] in [place]. The pa tiehallie is displaying pain medication seeking behavior and got upset when he was told that his cardiac workup is negative and he is to be discharged. Currently working with case management to figure out his discharge plan. SA/MODL Voice ID: [id number] Report ID: [id number]
[2017-12-25] MEDS ORDERED: HALOPERIDOL LACT 5 MG/ML INJ IM PRN (12:30)
[2017-12-25] MEDS ORDERED: MORPHINE *EXTENDED RELEASE* 15 MG TAB PO PRN (12:30)
[2017-12-25] MEDS ORDERED: DIPHENHYDRAMINE 50 MG/ML VIAL IM PRN (12:46)
[2017-12-25] MEDS ORDERED: WATER FOR INJ,STERILE 10 ML IM PRN (13:23)
[2017-12-25] MEDS ORDERED: ZIPRASIDONE MESYLA 20 MG/VIAL IM PRN (13:23)
[2017-12-25] MEDS ORDERED: ZIPRASIDONE MESYLA 20 MG/VIAL IM ONE (13:30)
[2017-12-25] MEDS ORDERED: WATER FOR INJ,STERILE 10 ML ONE (13:31)
[2017-12-25] MEDS ORDERED: TRAMADOL HCL 50 MG TAB PO PRN (15:30)
[2017-12-25] MEDS: ATORVASTATIN 40 MG TAB PO SCH (21:00)
[2017-12-25] MEDS: QUETIAPINE 100MG TAB PO SCH (21:00)
[2017-12-26] MEDS ORDERED: QUETIAPINE 100MG TAB PO ONE (06:03)
[2017-12-26] MEDS: METOPROLOL TAR 25 MG TAB PO SCH ×2 (06:22→17:54)
[2017-12-26] MEDS: MORPHINE 4 MG/ML SYR IV PRN ×4 (06:22→20:51)
[2017-12-26] MEDS: CLOPIDOGREL 75 MG TABLET PO SCH (08:26)
[2017-12-26] MEDS: LISINOPRIL 10 MG TAB PO SCH (08:26)
[2017-12-26] MEDS: ENOXAPARIN 40 MG/0.4 ML SQ SCH (08:26)
--- NOTE | 2017-12-26 10:09 | P.PN ---
Subjective Date of Service: 12/26/17 Patient more confused and refusing to take his oral medications. Patient requiring IV. Will speak with nursing staff and get IV in his lower extremity. Increase his Seroquel to 200 mg daily. Review of Systems 10-point ROS is otherwise unremarkable Physical Examination - Vital Signs Temperature: 97.2 F Blood Pressure: 135/81 Pulse: 78 Respirations: 18 Pulse Ox (%): 97 - Physical Exam General: Alert, In no apparent distress, Oriented x2 Respiratory: Clear to auscultation bilaterally, Normal air movement Cardiovascular: Regular rate/rhythm, Normal S1 S2, No murmurs - Studies Medications List Reviewed: Yes Assessment & Plan - Problems (Diagnosis) (1) Altered mental status Current Visit: Yes Status: Acute (2) Hypertension Onset Date: 12/24/17 Current Visit: Yes Status: Acute (3) Schizophrenia Current Visit: Yes Status: Acute (4) Bipolar disorder Current Visit: Yes Status: Acute - Plan Plan: 1. Okay to start IV in the lower extremities 2. Increase Seroquel to 200 mg daily - Advance Directives Does patient have a Living Will: No Does patient have a Durable POA for Healthcare: No - Code Status/Comfort Care Code Status Assessed: Yes Code Status: Full Code
--- NOTE | 2017-12-26 10:58 | PN ---
Date of Progress Note: 12/26/2017 Subjective: The patient is seen and examined. Chart reviewed and case discussed with RN and Dr. Bonifacio liz. The patient had several episodes of agitation, violence and elopement, was brought back to the ICU by the [place] [employer]. The patient's legal guardian, Brian Guy, has been mickey diaz. The patient is to be referred over to [facility] for further treatment of his psychiatric con ditions, currently on one-on-one with suicide precautions. Review of Systems: Negative except as above. Medications: List reviewed. Physical Examination: Vital Signs: Temperature 97.2, heart rate 78, blood pressure 135/81, respirations 18, O2 97% on room air. General: Awake, alert, oriented x3, not in any acute distress. Morbidly obese male. CV: S1, S2. No murmurs. Regular rate and rhythm. Peripheral pulses present. Respiratory: Clear to auscultation bilaterally. No wheezing. No stridor. No use of accessory musc les. Gastrointestinal: Abdomen is soft, nontender, nondistended. Positive bowel sounds. Extremities: No clubbing, cyanosis, edema. Neurologic: Nonfocal. Psych: Mood is anxious. Affect is congruent with mood. Insight and judgment are poor. Assessment And Plan: A 57-year-old male with: 1.Acute agitation and delirium. The patient has been placed on Haldol and Ativan p.r.n. 2.Atypical chest pain. Acute coronary syndrome ruled out. 3.Paranoid schizophrenia. The patient needs to be on antipsychotics, currently on Seroquel and Geod on. 4.Essential hypertension, stable. 5.Congestive heart failure, EF 79%, diastolic dysfunction, compensated. 6.Morbid obesity, BMI 47. 7.Bipolar disorder. Plan: Awaiting transfer to [facility] in [place]. SA/MODL Voice ID: [id number] Report ID: [id number]
[2017-12-26] MEDS: ATORVASTATIN 40 MG TAB PO SCH (19:46)
[2017-12-26] MEDS ORDERED: QUETIAPINE 100MG TAB PO SCH (21:00)
[2017-12-27 03:01] VITALS: TEMP 97.7
[2017-12-27] MEDS: MORPHINE 4 MG/ML SYR IV PRN ×3 (03:01→12:03)
[2017-12-27] MEDS: METOPROLOL TAR 25 MG TAB PO SCH (06:00)
[2017-12-27] MEDS: CLOPIDOGREL 75 MG TABLET PO SCH (07:36)
[2017-12-27] MEDS: ENOXAPARIN 40 MG/0.4 ML SQ SCH (07:36)
[2017-12-27] MEDS: LISINOPRIL 10 MG TAB PO SCH (07:36)
[2017-12-27 12:22] VITALS: O2SAT 99
[2017-12-27 12:39] VITALS: BP 130/81
--- NOTE | 2017-12-27 13:40 | DS ---
Date of Discharge: 12/27/2017 Addendum: To the initial discharge summary. Consultants: Dr. Lyles and Dr. Rebollar with Cardiology. Discharge Diagnoses: 1.Paranoid schizophrenia, behaves more like schizoaffective disorder. The patient has not been on a ny medications according to the legal guardian. Depo shot unavailable at this facility. 2.Acute agitation and delirium, resolved. 3.Atypical chest pain. Acute coronary syndrome ruled out. Normal echocardiogram. No further kenny p by Cardiology. 4.Essential hypertension, stable. 5.Congestive heart failure, EF 79%, diastolic dysfunction, compensated, chronic. 6.Morbid obesity, BMI 47. 7.Bipolar disorder, likely type 2. 8.Personality disorder, not otherwise specified. 9.Mild mental retardation. Hospital Course: The patient is a 57-year-old male, came into the hospital for chest pain. The mario ent was worked up for ACS, which was ruled out. Echocardiogram was done, which did not show any abno rmalities. He was seen by Cardiology, who did not recommend any further workup. Due to the patient' s history of multiple admissions recently within the [facility] from which now he is barred and it has become evident, especially after speaking with the patient's lining caser, Yinka as well as hi s legal guardian, Ms. Dilcia Guy that the patient is very manipulative, goes from hospital to [facility], seeking narcotics, and does not wish to be in the group homes. The patient has been in multiple group homes and has been declined by several of them. The patient does keep eloping from the [facility], was recently in [place] as well as [facility] in [place]. The patient became v nanci agitated and verbally abusive when he was told that he is being discharged, threatened to court h imself, and therefore the initial discharge was canceled. The patient was evaluated by our mental he alth specialist, Yeni as well as officer of the Peace and the patient was placed under emergency det ention. His lining caser and legal guardian were contacted. Initially, the patient was placed for i npatient psychiatric transfer into [facility]. The patient was on the waiting list. The patient, however, after being given food and medications for pain, did change his story and did not w sigifredo to harm himself. He calmed down, did not wish to harm himself or others other than some minor pr operty destruction with punching a hole in the wall. He does not hurt himself or others at least in the past 4 if not the past 10 years as he has been assigned to his lining caser. The patient has onl y been to a psych facility once 9 years ago, does not follow up with the psychiatrist on a regular ba sis. He has not had an IQ testing done; however, does have diagnosis of mild MR. The patient origin ally from [place], but has been in [place] for while. The patient was then no longer threatening to hurt himself. The patient does use excuse multiple times to manipulate staff and to stay in the ospital to get what he wants. The patient repeatedly asking to go to [place] as he wishes to go to [facility] ER over there. The patient will be discharged back to the intermediate as he is no longer a threat t o himself. He will need a psychiatric outpatient referral. The patient was then discharged back to the intermediate in a stable condition. Activity: As tolerated. Medications: As per medication reconciliation list. Followup: Follow up with primary care physician in 2-3 days. Follow up with coder, Dr. Mathieu dia as needed. Follow up with psychiatrist upon discharge or within 1-2 weeks as reasonably soon as po ssible. Diet: Heart healthy. Physical Examination: General: Awake, alert, oriented x3. No acute distress. CV: S1, S2. No murmurs. Respiratory: Moving air well bilaterally. Abdomen: Soft, nontender, nondistended. Positive bowel sounds. Extremities: No clubbing, cyanosis, or edema. Neurologic: Nonfocal. Total time spent discharging the patient was 36 minutes. /JAMES Voice ID: [id number] Report ID: [id number]
== END 2017-12-27 14:25 | disposition home or self-care (01) | DRG 885 ==
LOC: ER 13:48 → ERHOLD 14:14 → 4TH 17:13 → 3RD-ICU 12-24 19:00 → OBSVTOIN 12-25 13:29
PROVIDERS: ADMIT Family Medicine; ATTEND Family Medicine
DX: F20.0 Paranoid schizophrenia (principal); F05 Delirium due to known physiological condition; I50.32 Chronic diastolic (congestive) heart failure; Z68.42 Body mass index [BMI] 45.0-49.9, adult; R07.89 Other chest pain; I11.0 Hypertensive heart disease with heart failure; E66.01 Morbid (severe) obesity due to excess calories; F31.81 Bipolar II disorder; F60.9 Personality disorder, unspecified; F70 Mild intellectual disabilities; I25.10 Atherosclerotic heart disease of native coronary artery without angina pectoris; Z95.5 Presence of coronary angioplasty implant and graft; Z88.6 Allergy status to analgesic agent; Z88.8 Allergy status to other drugs, medicaments and biological substances
CPT/HCPCS: 36415; 71045; 80048; 80061; 80076; 82550; 82553; 83036; 83690; 83735; 83880; 84484; 85025; 85610; 85730; 93005; 93306; 94760; 96361; 96374; 96375; 99285; G0378; J1630; J1650; J2405; J3486; J7030